=== PATIENT | male | born 1955 | race Caucasian/White ===

== ENCOUNTER 2020-11-14 09:46 | Inpatient (IN) | payer MEDICARE, SELFPAY ==
[2020-11-14] VITALS (10 sets, daily range): BP systolic 135–161; BP diastolic 64–101; PULSE 78–88; RESP 20–24; TEMP 36.2–38.1; O2SAT 90–94; BMI 42.5; BMI 42.9
--- NOTE | 2020-11-14 10:05 | EKG12_ITS ---
Test Reason : GENERAL ILLNESS Blood Pressure : / mmHG Vent. Rate : 078 BPM Atrial Rate : 078 BPM P-R Int : 188 ms QRS Dur : 102 ms QT Int : 396 ms P-R-T Axes : 056 -13 028 degrees QTc Int : 451 ms Normal sinus rhythm Normal ECG Confirmed by JACKY LOPEZ, SHARON ([id number]), assistant editor NICO LIVE ([id number]) on 11/16/2020 11:15:26 AM Referred By: POOJA Confirmed By:SHARON RICO MD
[2020-11-14 10:29] LABS: Absolute Neutrophil Count 2.4 X10^3/uL (2.0-7.7); Basophil# 0.01 X10^3/uL; Basophil% 0.3 % (0-1); Hematocrit 41.8 % (40-54); Hemoglobin 14.5 g/dL (13.0-16.5); Lymphocyte % 22.4 % (19-41); Mean Corp Hgb Conc 34.7 g/dL (32-36); Mean Corpuscular Volume 97.9 fL (80-94); Mean Platelet Vol. 10.8 fl (6.2-12.0); Monocyte# 0.35 X10^3/uL; Monocyte% 9.8 % (0-10); NRBC Flagged by Analyzer 0 % (0-5); Neutrophil % 67.2 % (47-70); Platelet Count 113 K/mm3 (150-450); RBC Distribution Width CV 13.2 % (11.6-14.6); RBC Distribution Width SD 46.8 fl (35.1-43.9); Red Blood Count 4.27 M/mm3 (4.6-6.2); White Blood Count 3.6 K/mm3 (4.4-11.0)
[2020-11-14 10:50] LABS: ALB/GLOB Ratio 0.8 RATIO (0.9-2.4); AST(SGOT) 83 U/L (15-37); Alanine Aminotransfer ALT/SGPT 94 U/L (16-61); Albumin, Serum 3.3 g/dL (3.2-5.0); Alkaline Phosphatase 70 U/L (45-117); Anion Gap 6 (5-15); BUN 13 mg/dL (7-18); BUN/Creat Ratio 11.8 RATIO (10-20); Calcium,Total 8.3 mg/dL (8.5-10.1); Chloride 95 mmol/L (98-107); EST Glomerular Filtration Rate 71 mL/min (>60); Est Glom Filt Rate - Afr Amer 86 mL/min (>60); Estimated Creatinine Clearance 80.01 ml/min; Globulin 3.9 g/dL (2.2-4.2); Glucose 312 mg/dL (74-106); International Normalized Ratio 1.4; Potassium 5.1 mmol/L (3.5-5.1); Protein, Total 7.2 g/dL (6.4-8.2); Prothrombin Time (Protime)PT. 16.5 SECONDS (11.7-14.9); Sodium Level 128 mmol/L (136-145)
[2020-11-14 10:51] LABS: Partial Thromboplast Time 37.8 Seconds (24.1-36.2)
[2020-11-14] MEDS: 0.9% Normal Saline 1,000 ML 1000 ML IV (11:04)
--- NOTE | 2020-11-14 11:05 | RAD_ITS ---
STUDY: X-RAY CHEST REASON FOR EXAM: Male, 65 years old. cough, sob TECHNIQUE: Single AP portable view of the chest. COMPARISON: None. FINDINGS: Cardiomegaly with congestion. Aorta calcified. Extensive multifocal airspace opacities performing at the mid/lower lungs. No pleural effusions. Upper abdomen unremarkable. Osseous structures intact. No pneumothorax. RAD/Chest 1 View (Portable) IMPRESSION: Extensive multifocal airspace opacities (suspected infection) Cardiomegaly with mild congestion Electronically Signed: Naveen Juárez DO at 11:24 EDT Tel , Service support ,
--- NOTE | 2020-11-14 12:02 | ED.DCSUM_ITS ---
- ER Visit Summary Date of Service: 11/14/20 Chief Complaint: Ill History of Present Illness: The patient is a 65 M who is feeling ill for several days. Generalized fatigue, lightheaded, diarrhea, fevers, cough, shortness of breath. History of PE. He is compliant with his Xarelto. Also history of coronary disease, diabetes, hypertension, hyperlipidemia. Former smoker. Physical Examination: 90% on room air. Temp is 100.5. Respiratory rate 20. Otherwise vitals unremarkable. Lungs clear. Heart regular. Abdomen soft. Extremities nontender with no edema. Test Results: Covid positive. Low WBC and platelets 113. Sodium 128, glucose 312, mildly elevated liver enzymes. Troponin normal. Lactate 2.0. Emergency Department Course and Treatment: [] Treatment Plan: IV, Monitor. Sats OK at rest in bed. Labs, CXR, micro consistent with COVID 19. He is high risk and will be admitted for further care. Treated with dexamethasone. Disposition: Admit Impression: Covid 19, hypoxia This note was generated with [employer] dictation software. It may contain incorrect words, spelling, and punctuation that were not noted in review of the chart prior to signing ED Disposition - Plan for ED Patient: Referrals: Anil Barrett NP, [facility] [Primary Care Provider] -
--- NOTE | 2020-11-14 12:19 | NURSING ---
ICU CVID, HYPOXIA KAMALA
[2020-11-14] MEDS: dexAMETHasone 4 MG/ML Vial 6 MG IV (12:42)
--- NOTE | 2020-11-14 13:19 | PCM.HP.STD ---
Problem List (1) COVID-19 Status: Acute (2) Diabetes Status: Chronic Qualifiers: Diabetes mellitus type: type 2 Diabetes mellitus shelter insulin use: unspecified shelter insulin use status (3) HTN (hypertension) Status: Chronic (4) Hyperlipemia Status: Chronic (5) YASMIN (obstructive sleep apnea) Status: Chronic (6) Morbid obesity Status: Chronic (7) CAD (coronary artery disease) Status: Chronic (8) Pulmonary embolism Status: Chronic (9) Thrombocytopenia Status: Acute (10) Leukopenia Status: Acute (11) Transaminitis Status: Acute (12) Hyponatremia Status: Acute History of Present Illness Date of Admission: 11/14/20 Mr. Alcocer is a 65 year old WM with a past medical history of coronary artery disease, HTN, HPL, YASMIN, MO, and DM-2 who presented to emergency department [facility] on 11/14/2020 with a chief complaint of shortness of breath. He reported that he had been feeling ill since last Friday with generalized fatigue, lightheadedness, diarrhea, fevers, cough, and shortness of breath. He has a history of pulmonary embolism for which she is on Xarelto. He takes this medication consistently and does not miss doses. He has not yet been vaccinated for COVID-19. Vital signs in the emergency department show a temperature of 100.5, heart rate of 80, blood pressure 144/64, respiratory rate of 20, and an oxygen saturation of 90% on room air. A COVID-19 rapid antigen test was performed and was positive. His CBC showed leukopenia and thrombocytopenia. His CMP showed mild hyponatremia with a sodium of 128, a glucose of 312, mildly elevated transaminases with an AST of 83 and an ALT of 94. His chest x-ray showed cardiomegaly with mild congestion and extensive multifocal airspace opacities. He was treated with Decadron in the emergency department and he was admitted to the COVID-19 cohort unit for further care. Given his comorbidities he is at and incredibly high risk for decompensation and this was discussed with both he and his .] Past Medical History Past Medical History (Chronic Problems): Chronic Problems Diabetes (Chronic) HTN (hypertension) (Chronic) Hyperlipemia (Chronic) YASMIN (obstructive sleep apnea) (Chronic) Morbid obesity (Chronic) CAD (coronary artery disease) (Chronic) Pulmonary embolism (Chronic) Allergies No Known Allergies Allergy (Verified 11/14/20 09:51) Home Medications: Ambulatory Orders Medication Instructions Recorded Glimepiride [Amaryl] 2 mg PO DAILY 11/14/20 Lisinopril [Zestril] 10 mg PO DAILY 11/14/20 Metoprolol Tartrate [Lopressor 50 mg PO BID 11/14/20 (Beta Edy)] Simvastatin [Zocor] 40 mg PO QHS 11/14/20 Smoking Status: Never smoker Review of Systems Constitutional: Reports: Fever, Malaise, Weakness, Fatigue. Denies: Anorexia, Chills, Night Sweats, Weight Change Eyes: Denies: Blurred vision, Cataracts, Conjunctivae Inflammation, Double vision, Drainage, Eyelid Inflammation, Pain, Redness, Vision Change HEENT: Reports: Head Aches. Denies: Difficulty Hearing, Difficulty Swallowing, Nasal bleeding, Nasal Congestion, Post Nasal Drip, Sinus Congestion, Sinus Drainage, Sore Throat, Visual Changes Cardiovascular: Reports: Light Headedness. Denies: Chest Pain, Claudication, Chest Pressure, Chest Tightness, Edema, Heaviness, Orthopnea, Palpitations, Paroxysmal Noc. Dyspnea, Syncope Respiratory: Reports: Cough, Shortness of Breath, Shortness of breath at rest, Shortness of breath upon exertion. Denies: Hemoptysis, Pleuritic Pain, Sputum production, Wheezing Gastrointestinal: Reports: Diarrhea. Denies: Abdominal Pain, Constipation, Dyspepsia, Hematemesis, Hematochezia, Nausea, Melena, Vomiting Genitourinary: Denies: Dysuria, Frequency, Hematuria, Hesitancy, Incontinence, Nocturia, Retention, Urgency Musculoskeletal: Denies: Back Pain, Joint Pain, Joint stiffness, Joint swelling, Joint Tenderness, Leg Pain, Muscle pain, Neck Pain, Shoulder Pain Skin: Denies: Dryness, Jaundice, Lesions, Pruritis, Rash, Skin Changes, Wounds Neurological: Denies: Balance problems, Blurred vision, Double vision, Change in Speech, Slurred speech, Confusion, Difficulty swallowing, Focal weakness, Headaches, Incoordination, Numbness, Tingling, Tremor, Seizures Psychiatric: Denies: Anxiety, Depression Endocrine: Denies: Change in Body Habitus, Heat/ Cold Intolerance, Polydipsia, Polyuria Hematologic/ Lymphatic: Reports: Hx of blood clot. Denies: Adenopathy, Anemia, Easy Bruising, Easy Bleeding, Petechiae, Purpura VTE Information - Inpt Only VTE Present on Admission: No VTE Mechan Device Prophylaxis: None VTE Pharm Prophylaxis ordered?: Yes - Physical Exam Vitals/I&O's: Vital Signs Temp Pulse Resp BP Pulse Ox 98 F 78 20 H 139/76 H 94 11/14/20 12:20 11/14/20 12:20 11/14/20 12:20 11/14/20 12:20 11/14/20 12:20 Oxygen Delivery Method Room Air Weight: 158.757 kg Body Mass Index (BMI) 42.5 Intake and Output for Last 24 Hours 11/12/20 11/13/20 11/14/20 23:59 23:59 23:59 Intake Total 1000 / 1000 Balance 1000 / 1000 General: Alert, Oriented x3, Cooperative, No apparent distress, Well developed, Well nourished, - - Morbidly obese upper middle-aged white male sitting up in bed, at bedside, nontoxic HEENT: Atraumatic, PERRLA, EOMI, Normocephalic, EAC Clear Oral: Moist Mucosa, No Gingival or Mucosal Lesions/ Ulcerations Neck: Supple, No JVD, Negative Carotid Bruits, Negative Hepatojugular Reflux, No Nodes, No Nuchal Rigidity, Trachea Midline, Thyroid Normal Size and Texture Lungs: Clear to auscultation, No rhonchi, No wheeze, No rales, Diminished - Diffusely Cardiovascular: Regular rate, Regular Rhythm, Normal S1, Normal S2, No murmurs, No rub noted, No Gallop, - - Few ectopic beats Abdomen: Bowel Sounds Present, Soft, Non Tender, Non-Distended, Obese, No hernias noted Extremities: No clubbing, No cyanosis, Capillary Refill Less than 3 Seconds, Edema - Trace bilateral lower extremity edema, Peripheral Pulses Normal Skin: No rashes, No breakdown Musculoskeletal: No Tenderness to Palpation of Joints or Extremities, No Muscle Wasting, Arthritic Changes Lymphatic: No Cervical, Supraclavicular, or Inguinal Adenopathy Neurological: Cranial nerves II-XII grossly intact, Neuro grossly intact, Muscle tone normal, Coordination normal Psych/Mental Status: Normal Affect, Appropriate, - - Patient frustrated Microbiology Past 72 Hours 11/14/20 10:20 Nasal Secretion SARS-CoV-2 Antigen (Rapid) - Final SARS-CoV-2 (COVID 19) Laboratory Results 11/14/20 10:15: WBC 3.6 L, RBC 4.27 L, Hgb 14.5, Hct 41.8, MCV 97.9 H, MCH 34.0 H, MCHC 34.7, RDW Std Deviation 46.8 H, RDW Coeff of [place] 13.2, Plt Count 113 L, MPV 10.8, Immature Gran % (Auto) 0.300, Neut % (Auto) 67.2, Lymph % (Auto) 22.4, [place] % (Auto) 9.8, Eos % (Auto) 0.0, Baso % (Auto) 0.3, Absolute Neuts (auto) 2.4, Absolute Lymphs (auto) 0.80 L, Nucleated RBC % 0 11/14/20 10:15: PT 16.5 H, INR 1.4, APTT 37.8 H 11/14/20 10:15: Sodium 128 L, Potassium 5.1, Chloride 95 L, Carbon Dioxide 27.0, Anion Gap 6, BUN 13, Creatinine 1.10, Estim Creat Clear Calc 80.01, Est GFR (MDRD) Af Amer 86, Est GFR (MDRD) Non-Af 71, BUN/Creatinine Ratio 11.8, Glucose 312 H, Calcium 8.3 L, Total Bilirubin 0.80, AST 83 H, ALT 94 H, Alkaline Phosphatase 70, Troponin I 0.017, Total Protein 7.2, Albumin 3.3, Globulin 3.9, Albumin/Globulin Ratio 0.8 L 11/14/20 10:15: Lactic Acid 2.0 Assessment/Plan All Active Problems COVID-19 (Acute) Thrombocytopenia (Acute) Leukopenia (Acute) Transaminitis (Acute) Hyponatremia (Acute) COVID-19 pneumonia -Pt CXR with patchy B infiltrates -O2 sat in ED 89-92% on RA -Supplemental oxygen as needed -Given relative hypoxia--> start remdesivir Day 1 -Decadron 6 mg daily--> day 110 -Obtain daily labs associated with remdesivir dosing -Cycle troponin -No need for D-dimer as patient is already fully anticoagulated -BiPAP at at bedtime -Patient is extremely high risk for decompensation and this was discussed with both he and his in the emergency department -Pulmonary consult given risk Transaminitis -Most likely related to Covid -Continue to monitor Leukopenia/thrombocytopenia -Most likely related to Covid -Continue to monitor Hyponatremia -Likely related to Covid -Continue to monitor DM-2 -Patient is on Trulicity, Metformin, and glimepiride at home -Hold all home medications at this time -Start Lantus 20 units at at bedtime and 5 units of log with meals -AC at bedtime sliding scale -BGT AC at bedtime -Suspect he will have elevated blood sugars on the Decadron and will likely need titrating of insulin Hypertension -Continue metoprolol -Continue lisinopril -Monitor renal function closely with lisinopril Hyperlipidemia -Continue statin History of coronary disease -Start aspirin 81 mg nightly YASMIN -BiPAP at at bedtime History of pulmonary embolism -Continue Xarelto 20 mg daily Morbid obesity -BMI 42.6 -Complicates overall treatment, outcomes and prognosis DVT/GI prophylaxis -Continue NOAC -Protonix 40 mg daily CODE STATUS -Per discussion with patient with his present in the emergency department patient does not want to be resuscitated but would want short-term intubation -DNR CCA okay for short-term intubation order placed Inpatient E&M: [id number] Init Hosp L3
--- NOTE | 2020-11-14 13:20 | NURSING ---
ICU 6
[2020-11-14 14:24] LABS: Reflex Lactate? Y
[2020-11-14] MEDS: 0.9% Saline Lock 10 ML Syringe IV ×2 (15:18→17:25)
[2020-11-14 15:31] LABS: Lactic Acid 1.5 mmol/L (0.4-1.9)
[2020-11-14 15:40] LABS: Bacteria 0 SEEN /hpf (None Seen); Mucous, Urine 0 SEEN /hpf (<or=2+); Red Blood Cells-Urine 0 SEEN /hpf (0-5)
[2020-11-14 15:47] LABS: Color, Urine Yellow (Yellow); Glucose, Dipstick 250 mg/dl (Normal); Ketone-Dipstick 5 mg/dl (Negative); Leukocyte Esterase-Dipstick Negative /ul (Negative); Nitrite-Dipstick Negative (Negative); Occult Blood-Urine Negative /ul (Negative); Protein-Dipstick 30 mg/dl (Negative); Specific Gravity, Urine 1.015 (1.002-1.030); Urine Bilirubin Dipstick Negative (Negative); Urine Clarity Clear (Clear); Urine Urobilinogen Normal (Normal)
[2020-11-14 15:54] LABS: Squamous Epithelial Cells - UA 0-5 SEEN /hpf (0-5)
[2020-11-14 15:55] LABS: White Blood Cells 0-5 SEEN /hpf (0-5)
[2020-11-14] MEDS: Insulin Lispro 100 UNIT/ML INSULN.PEN SC ×3 (17:11→21:02)
[2020-11-14] MEDS: Rivaroxaban 20 MG Tablet PO (17:12)
[2020-11-14 17:20] LABS: Bedside Glucose 374 mg/dL (70-110)
[2020-11-14] MEDS: Lactated Ringers 1,000 ML 75 ML IV (17:24)
[2020-11-14] MEDS: Metoprolol Tartrate 50 MG Tablet PO (21:01)
[2020-11-14 21:31] LABS: Bedside Glucose 376 mg/dL (70-110)
--- NOTE | 2020-11-14 23:47 | CPS ---
Pt could not tolerate mask and will wear 2L O2. Pt will have spouse deliver home PAP unit.
[2020-11-15] VITALS (26 sets, daily range): BP systolic 113–151; BP diastolic 64–95; PULSE 65–91; RESP 12–35; TEMP 36.2–37; O2SAT 89–95
[2020-11-15 04:42] LABS: Absolute Lymphocyte Count 0.98 X10^3/uL (0.83-4.51); Absolute Neutrophil Count 2.5 X10^3/uL (2.0-7.7); Basophil# 0.01 X10^3/uL; Basophil% 0.3 % (0-1); Hematocrit 40.5 % (40-54); Hemoglobin 13.9 g/dL (13.0-16.5); Lymphocyte # 0.98 X10^3/ul (4.0); Lymphocyte % 25.2 % (19-41); Mean Corp Hgb Conc 34.3 g/dL (32-36); Mean Corpuscular Hgb 33.7 pg (27.0-32.0); Mean Corpuscular Volume 98.3 fL (80-94); Mean Platelet Vol. 10.3 fl (6.2-12.0); Monocyte# 0.39 X10^3/uL; NRBC Flagged by Analyzer 0 % (0-5); Neutrophil # 2.49 X10^3/uL (2.7-7.7); Platelet Count 116 K/mm3 (150-450); RBC Distribution Width CV 13.2 % (11.6-14.6); RBC Distribution Width SD 47.6 fl (35.1-43.9); Red Blood Count 4.12 M/mm3 (4.6-6.2); White Blood Count 3.9 K/mm3 (4.4-11.0)
[2020-11-15 04:58] LABS: ALB/GLOB Ratio 0.7 RATIO (0.9-2.4); AST(SGOT) 53 U/L (15-37); Alanine Aminotransfer ALT/SGPT 75 U/L (16-61); Albumin, Serum 2.9 g/dL (3.2-5.0); Alkaline Phosphatase 63 U/L (45-117); Anion Gap 4 (5-15); BUN 17 mg/dL (7-18); Chloride 100 mmol/L (98-107); EST Glomerular Filtration Rate 79 mL/min (>60); Est Glom Filt Rate - Afr Amer 96 mL/min (>60); Estimated Creatinine Clearance 88.01 ml/min; Globulin 3.9 g/dL (2.2-4.2); Glucose 307 mg/dL (74-106); Phosphorus 3.3 mg/dL (2.5-4.9); Potassium 4.8 mmol/L (3.5-5.1); Protein, Total 6.8 g/dL (6.4-8.2); Sodium Level 131 mmol/L (136-145)
[2020-11-15] MEDS: Lactated Ringers 1,000 ML 75 ML IV ×2 (05:40→18:09)
[2020-11-15 07:41] LABS: Bedside Glucose 283 mg/dL (70-110)
[2020-11-15] MEDS: dexAMETHasone 4 MG Tablet 6 MG PO (07:48)
[2020-11-15] MEDS: Metoprolol Tartrate 50 MG Tablet PO ×2 (07:50→22:38)
[2020-11-15] MEDS: Aspirin 81 MG TAB.CHEW PO (07:50)
[2020-11-15] MEDS: Pantoprazole Sodium 40 MG Tablet PO (07:51)
[2020-11-15] MEDS: Lisinopril 10 MG Tablet PO (07:51)
[2020-11-15] MEDS: Insulin Lispro 100 UNIT/ML INSULN.PEN SC ×5 (07:52→22:36)
--- NOTE | 2020-11-15 08:50 | CON.PCM_ITS ---
Problem List (1) COVID-19 Status: Acute (2) Diabetes Status: Chronic Qualifiers: Diabetes mellitus type: type 2 Diabetes mellitus long-term insulin use: without long-term use Diabetes mellitus complication status: with circulatory complication Diabetes mellitus complication detail: with other circulatory complications Qualified Code(s): E11.59 - Type 2 diabetes mellitus with other circulatory complications (3) HTN (hypertension) Status: Chronic Qualifiers: Hypertension type: essential hypertension Qualified Code(s): I10 - Essential (primary) hypertension (4) Hyperlipemia Status: Chronic Qualifiers: Hyperlipidemia type: mixed hyperlipidemia Qualified Code(s): E78.2 - Mixed hyperlipidemia (5) YASMIN (obstructive sleep apnea) Status: Chronic (6) Morbid obesity Status: Chronic (7) CAD (coronary artery disease) Status: Chronic Qualifiers: Coronary Disease-Associated Artery/Lesion type: [place] artery [place] vs. transplanted heart: [place] heart Associated angina: without angina Qualified Code(s): I25.10 - Atherosclerotic heart disease of [place] coronary artery without angina pectoris Reason for Consult Date of Consultation: 11/15/20 Reason for Consultation: COVID-19 History of Present Illness: The patient is a 65 year old M, with past medical history listed below, who presented to [facility] on 11/14/2020 secondary to approximately 7-day history of progressive illness. Patient states he started off with generalized fatigue and a cough. Patient progressed to shortness of breath and had some diarrhea approximately 4 days ago. Patient does have a history of pulmonary embolism and has been compliant with his Xarelto therapy, but felt that things were continuing to progress, so came to the ER for evaluation. In the ER, patient was noted to be 90% on room air and febrile at 100.5 ?F. Physical exam was relatively unremarkable. Patient did have hyperglycemia at 312, lactate of 2, lymphopenia and tested positive for COVID-19. Given patient's body habitus and comorbidities, patient was admitted to the cohort unit for further evaluation. Since being in the cohort unit, patient has been placed on supplemental oxygen. Patient reportedly did not tolerate the full facemask provided on the BiPAP last evening. Patient stated he felt relatively unchanged this morning. After my evaluation, patient started to require more supplemental oxygen without additional symptoms. Patient does report a [id number] smoking history, but is never been evaluated for COPD or asthma. Patient does not use any inhalers at baseline. Patient has not required supplemental oxygen at baseline outside of his previous cardiac events. Patient is unclear on how he contracted COVID-19. Patient does report recent diarrhea, but feels that he has been able to stay hydrated. Patient has not reported any chest pain or syncopal episodes. Patient reportedly is compliant with his YASIMN therapy at baseline. Patient has not reported any bleeding complications given his anticoagulation such as melena, hematochezia or hemoptysis. Review of systems otherwise negative from a constitutional, HEENT, respiratory, cardiovascular, GI, genitourinary, musculoskeletal, skin, neurologic, psychia tric and hematologic system unless stated above. Past Medical History Past Medical History (Chronic Problems): Chronic Problems Diabetes (Chronic) HTN (hypertension) (Chronic) Hyperlipemia (Chronic) YASMIN (obstructive sleep apnea) (Chronic) Morbid obesity (Chronic) CAD (coronary artery disease) (Chronic) Pulmonary embolism (Chronic) Allergies No Known Allergies Allergy (Verified 11/14/20 09:51) Home Medications: Ambulatory Orders Medication Instructions Recorded Dulaglutide [Trulicity] 0.5 ml SQ QWEEK 11/14/20 Glimepiride [Amaryl] 2 mg PO DAILY 11/14/20 Lisinopril [Zestril] 10 mg PO DAILY 11/14/20 Metformin HCl [Metformin HCl ER] 750 mg PO BID 11/14/20 Metoprolol Tartrate [Lopressor 50 mg PO BID 11/14/20 (Beta Edy)] Simvastatin [Zocor] 40 mg PO QHS 11/14/20 Xarelto 20 mg PO DAILY 11/15/20 Smoking Status: Former smoker Review of Systems Comment: See HPI Patient Problems: Active and Suspected Problems COVID-19 (Acute) Thrombocytopenia (Acute) Leukopenia (Acute) Transaminitis (Acute) Hyponatremia (Acute) Objective: Chest x-ray showing bilateral infiltrates, right greater than left with mild cardiomegaly. Patient does not have an echocardiogram, sleep study or pulmonary function test available for review. - Physical Exam Vitals/I&O's: Vital Signs Temp Pulse Resp BP Pulse Ox 36.8 C 89 18 144/95 H 93 11/15/20 07:37 11/15/20 07:50 11/15/20 07:37 11/15/20 07:37 11/15/20 07:37 Oxygen Flow Rate (L/min) 15 Oxygen Delivery Method Nasal Cannula Weight: 158.8 kg Body Mass Index (BMI) 42.9 Intake and Output for Last 24 Hours 11/13/20 11/14/20 11/15/20 23:59 23:59 23:59 Intake Total 1250 / 1250 920 / 920 Output Total 1800 / 1800 800 / 800 Balance -550 / -550 120 / 120 General: Alert, Oriented x3, Cooperative, No apparent distress, - - Morbidly obese. No conversational dyspnea. Slightly abrupt with answers, but does not appear to be confused HEENT: Atraumatic, PERRLA, EOMI, Normocephalic, - - No scleral icterus or injection noted Oral: Moist Mucosa, No Gingival or Mucosal Lesions/ Ulcerations, - - Crowded posterior pharynx Neck: Supple, No JVD, No Nodes, Trachea Midline Lungs: No rhonchi, No rales, Diminished, Wheezes Cardiovascular: Regular rate, Regular Rhythm, Normal S1, Normal S2, No murmurs, No rub noted, No Gallop Abdomen: Bowel Sounds Present, Soft, Non Tender, Non-Distended, Obese Extremities: No cyanosis, Edema - 1+ lower extremity Skin: No rashes, No breakdown Musculoskeletal: No Tenderness to Palpation of Joints or Extremities Lymphatic: No Cervical, Supraclavicular, or Inguinal Adenopathy Neurological: Cranial nerves II-XII grossly intact, Neuro grossly intact, Motor Exam 5/5 strength throughout Psych/Mental Status: Alert and oriented to time, place, person, mood and affect Microbiology Past 72 Hours 11/14/20 10:20 Nasal Secretion SARS-CoV-2 Antigen (Rapid) - Final SARS-CoV-2 (COVID 19) Laboratory Results 11/14/20 10:15: WBC 3.6 L, RBC 4.27 L, Hgb 14.5, Hct 41.8, MCV 97.9 H, MCH 34.0 H, MCHC 34.7, RDW Std Deviation 46.8 H, RDW Coeff of [place] 13.2, Plt Count 113 L, MPV 10.8, Immature Gran % (Auto) 0.300, Neut % (Auto) 67.2, Lymph % (Auto) 22.4, [place] % (Auto) 9.8, Eos % (Auto) 0.0, Baso % (Auto) 0.3, Absolute Neuts (auto) 2.4, Absolute Lymphs (auto) 0.80 L, Nucleated RBC % 0 11/14/20 10:15: PT 16.5 H, INR 1.4, APTT 37.8 H 11/14/20 10:15: Sodium 128 L, Potassium 5.1, Chloride 95 L, Carbon Dioxide 27.0, Anion Gap 6, BUN 13, Creatinine 1.10, Estim Creat Clear Calc 80.01, Est GFR (MDRD) Af Amer 86, Est GFR (MDRD) Non-Af 71, BUN/Creatinine Ratio 11.8, Glucose 312 H, Calcium 8.3 L, Total Bilirubin 0.80, AST 83 H, ALT 94 H, Alkaline Phosphatase 70, Troponin I 0.017, Total Protein 7.2, Albumin 3.3, Globulin 3.9, Albumin/Globulin Ratio 0.8 L 11/14/20 10:15: Lactic Acid 2.0 11/14/20 14:45: Lactic Acid 1.5 11/14/20 14:45: Troponin I 0.024 11/14/20 15:30: Urine Color Yellow, Urine Clarity Clear, Urine pH 6.0, Ur Specific [place] 1.015, Urine Protein 30 H, Urine Glucose (UA) 250 H, Urine Ketones 5 H, Urine Occult Blood Negative, Urine Nitrite Negative, Urine Bilirubin Negative, Urine Urobilinogen Normal, Ur Leukocyte Esterase Negative, Urine RBC 0 SEEN, Urine WBC 0-5 SEEN, Ur Squamous Epith Cells 0-5 SEEN, Urine Bacteria 0 SEEN, Urine Mucus 0 SEEN 11/14/20 17:09: POC Glucose 374 H 11/14/20 18:00: Troponin I 0.024 11/14/20 20:57: POC Glucose 376 H 11/15/20 04:35: WBC 3.9 L, RBC 4.12 L, Hgb 13.9, Hct 40.5, MCV 98.3 H, MCH 33.7 H, MCHC 34.3, RDW Std Deviation 47.6 H, RDW Coeff of [place] 13.2, Plt Count 116 L, MPV 10.3, Immature Gran % (Auto) 0.500, Neut % (Auto) 64.0, Lymph % (Auto) 25.2, [place] % (Auto) 10.0, Eos % (Auto) 0.0, Baso % (Auto) 0.3, Absolute Neuts (auto) 2.5, Absolute Lymphs (auto) 0.98, Nucleated RBC % 0 11/15/20 04:35: Sodium 131 L, Potassium 4.8, Chloride 100, Carbon Dioxide 27.0, Anion Gap 4 L, BUN 17, Creatinine 1.00, Estim Creat Clear Calc 88.01, Est GFR (MDRD) Af Amer 96, Est GFR (MDRD) Non-Af 79, BUN/Creatinine Ratio 17.0, Glucose 307 H, Calcium 8.0 L, Phosphorus 3.3, Magnesium 2.0, Total Bilirubin 0.70, AST 53 H, ALT 75 H, Alkaline Phosphatase 63, Total Protein 6.8, Albumin 2.9 L, Globulin 3.9, Albumin/Globulin Ratio 0.7 L 11/15/20 07:35: POC Glucose 283 H Current Medications Acetaminophen (Acetaminophen 325 Mg Tablet) 650 mg PO Q6H PRN PRN PRN Reason: Pain Score 1-10/Temp > 100.7 F Al Hydroxide/Mg Hydroxide (Mag Hydrox/Al Hydrox/Simeth 30 Ml Udc) 30 ml PO Q6H PRN PRN PRN Reason: Gastric Burning Aspirin (Aspirin 81 Mg Tab.Chew) 81 mg PO DAILY@0800 [facility] Last Admin: 11/15/20 07:50 Dose: 81 mg Documented by: Atorvastatin Calcium (Atorvastatin Calcium 20 Mg Tablet) 20 mg PO 1700 [facility] Dexamethasone (Dexamethasone 4 Mg Tablet) 6 mg PO DAILY [facility] Last Admin: 11/15/20 07:48 Dose: 6 mg Documented by: Dextrose (Dextrose 50%-Water 25 Gm/50 Ml Disp.Syrin) 0 gm IV X1 PRN; Protocol PRN Reason: Hypoglycemia Glucagon (Glucagon 1 Mg/Ml Syringe) 1 mg IM .X1 PRN PRN Reason: Hypoglycemia Guaifenesin (Guaifenesin 10 Ml Udc (200mg/10ml)) 10 ml PO Q4H PRN PRN PRN Reason: COUGH Hydralazine HCl (Hydralazine 20 Mg/Ml Vial) 10 mg IV Q6H PRN PRN PRN Reason: SBP>160 Lactated Ringer's () 1,000 mls @ 75 mls/hr IV .[id number] [facility] Last Admin: 11/15/20 05:40 Dose: 75 mls/hr Documented by: Remdesivir 100 mg/ Sodium (Chloride) 250 mls @ 125 mls/hr IV DAILY [facility]; Protocol Stop: 11/18/20 11:59 Insulin Glargine (Insulin Glargine 100 Units/Ml Pen) 40 units SC QHS BARBI Insulin Human Lispro (Insulin Lispro 100 Unit/Ml Insuln.Pen) 0 unit SC ACHS [facility]; Protocol Last Admin: 11/15/20 07:52 Dose: 4 u Documented by: Insulin Human Lispro (Insulin Lispro 100 Unit/Ml Insuln.Pen) 10 unit SC TIDAC [facility] Lisinopril (Lisinopril 10 Mg Tablet) 10 mg PO DAILY [facility] Last Admin: 11/15/20 07:51 Dose: 10 mg Documented by: Melatonin (Melatonin 3 Mg Tablet) 3 mg PO QHS PRN PRN PRN Reason: INSOMNIA Metoprolol Tartrate (Metoprolol Tartrate 50 Mg Tablet) 50 mg PO BID [facility] Last Admin: 11/15/20 07:50 Dose: 50 mg Documented by: Ondansetron HCl (Ondansetron 4 Mg/2 Ml Vial) 4 mg IV Q8H PRN PRN PRN Reason: NAUSEA/VOMITING Pantoprazole Sodium (Pantoprazole Sodium 40 Mg Tablet) 40 mg PO DAILY [facility] Last Admin: 11/15/20 07:51 Dose: 40 mg Documented by: Rivaroxaban (Rivaroxaban 20 Mg Tablet) 20 mg PO DAILY@1700 [facility] Last Admin: 11/14/20 17:12 Dose: 20 mg Documented by: Senna/Docusate Sodium (Senna/Docusate Sodium 1 Tablet) 2 tablet PO BID PRN PRN PRN Reason: Constipation Sodium Chloride (0.9% Saline Lock 10 Ml Syringe) 10 - 40 ml IV UD PRN PRN Reason: SALINE FLUSH Last Admin: 11/14/20 17:25 Dose: 10 ml Documented by: Clinical Impression(s) from Imaging Studies Chest X-Ray 11/14/20 11:05 IMPRESSION: Extensive multifocal airspace opacities (suspected infection) Cardiomegaly with mild congestion Electronically Signed: Naveen Juárez DO at 11:24 EDT Tel , Service support , Assessment/Plan All Active Problems COVID-19 (Acute) Thrombocytopenia (Acute) Leukopenia (Acute) Transaminitis (Acute) Hyponatremia (Acute) RECOMMENDATIONS: 1. Agree with Decadron and remdesivir 2. Wean oxygen as tolerated 3. Reinitiate baseline YASMIN therapy 4. Aggressive control of blood sugars 5. Initiate DuoNebs 6. Continue baseline Xarelto therapy IMPRESSIONS: 1. Acute hypoxic respiratory failure secondary to COVID-19 pneumonia Patient high risk for progression of disease. Patient does have a history of PE in the past, but is on full dose anticoagulation. This can be continued from my standpoint for clot prophylaxis. Patient has appropriately been initiated on Decadron and remdesivir. We will add empiric mucolytic and bronchodilators for a possibility of COPD given extended smoking history. Stressed to the patient the importance of using BiPAP with sleep to avoid complications. Cannot exclude the need for Airvo versus BiPAP with possible intubation. Patient 7 days in with oxygen requirements, so do anticipate worsening in overall condition before improvement. 2. Leukopenia/thrombocytopenia Clinical suspicion this is secondary to COVID-19. No bleeding complications have been reported. Okay to continue with Xarelto therapy from my perspective. 3. Diabetes mellitus without insulin requirements She does not require insulin at baseline, but given Decadron therapy, highly suspicious that supplemental insulin will be required. Agree with initiation of Lantus and meal insulin. 4. Morbid obesity/YASMIN/hypertension/hyperlipidemia Complicates care, management, recovery and prognosis. Did offer to use patient's home machine for comfort to allow for compliance with YASMIN therapy. Inpatient E&M: [id number] In Hosp L3
[2020-11-15] MEDS: guaiFENesin 1,200 MG Tablet 1200 MG PO ×2 (10:57→22:38)
[2020-11-15] MEDS: Insulin Lispro 100 UNIT/ML INSULN.PEN 10 UNIT SC ×2 (12:06→17:29)
[2020-11-15 12:31] LABS: Bedside Glucose 313 mg/dL (70-110)
--- NOTE | 2020-11-15 13:15 | CASEMGMT ---
RN ANDREW called patient in room for initial transition planning/care coordination assessment. RN ANDREW introduced self and role at [facility]. Patient lying in bed, alert and oriented. Patient willing to participate in assessment and is able to answer all questions appropriately. Care providers, pharmacy, and demographics verified. Patient wishes to discharge home, denies need for home health at this time. Patient states he has no further needs or concerns at this time. CM to follow for discharge planning needs that may arise. PCP: Arnold Specialists: [facility] [employer] [facility] Pharmacy: [facility] Insurance: [employer] [facility] Prescription Benefit: yes Living Will/HPOA: none LNOK: Living Arrangements: Patient lives with in single story home with 2 steps to enter the home. Patient states he is independent at home. Patient states was tested and is positive for Covid and is isolating at home. Patient states that they have someone that could deliver groceries and supplies. Transportation: self/ DME/HHC: Patient states he has cpap at home, denies further DME. No previous HHC. Will monitor for need for home oxygen at discharge. Disposition Plan: Patient to discharge home with family support and follow-up plan in place. Milena YAÑEZ, RN, CM
[2020-11-15] MEDS: Ipratropium/Albuterol Sulfate 3 ML AMPUL.NEB INHALATION ×2 (13:44→19:07)
--- NOTE | 2020-11-15 15:05 | PCM.PN.HOSP ---
Patient Problems: Active and Suspected Problems COVID-19 (Acute) Thrombocytopenia (Acute) Leukopenia (Acute) Transaminitis (Acute) Hyponatremia (Acute) Subjective: She notes he is feeling worse today. He has had increased shortness of breath since admission and is now requiring 15 L nasal cannula of high flow. Appears frustrated and is aware that this is going to be a slow process. Vitals/I&O's: Vital Signs Temp Pulse Resp BP Pulse Ox 97.2 F L 86 28 H 145/75 H 90 11/15/20 14:00 11/15/20 14:00 11/15/20 14:00 11/15/20 14:00 11/15/20 14:00 Oxygen Flow Rate (L/min) 12 Oxygen Delivery Method Nasal Cannula Weight: 158.8 kg Body Mass Index (BMI) 42.9 Intake and Output for Last 24 Hours 11/13/20 11/14/20 11/15/20 23:59 23:59 23:59 Intake Total 1250 / 1250 2047.5 / 2047.5 Output Total 1800 / 1800 800 / 800 Balance -550 / -550 1247.5 / 1247.5 General: Alert, Oriented x3, Cooperative, No apparent distress, Well developed, Well nourished, - - Morbidly obese upper middle-aged male sitting up in chair, appears comfortable and in no acute distress, nontoxic HEENT: Atraumatic, PERRLA, EOMI, Normocephalic, EAC Clear Oral: Moist Mucosa, No Gingival or Mucosal Lesions/ Ulcerations Neck: Supple, Trachea Midline Lungs: No rhonchi, No wheeze, No rales, Diminished Cardiovascular: Regular rate, Regular Rhythm, Normal S1, Normal S2, No murmurs, No Ectopic Activity, No rub noted, No Gallop Abdomen: Bowel Sounds Present, Soft, Non Tender, Non-Distended, Obese Extremities: No clubbing, No cyanosis, No edema, Capillary Refill Less than 3 Seconds, Peripheral Pulses Normal Skin: No rashes Neurological: Cranial nerves II-XII grossly intact, Neuro grossly intact Psych/Mental Status: Appropriate, Flat Affect, - - Depressed mood Microbiology Past 72 Hours 11/14/20 10:20 Nasal Secretion SARS-CoV-2 Antigen (Rapid) - Final SARS-CoV-2 (COVID 19) Laboratory Results 11/14/20 14:45: Lactic Acid 1.5 11/14/20 14:45: Troponin I 0.024 11/14/20 15:30: Urine Color Yellow, Urine Clarity Clear, Urine pH 6.0, Ur Specific [place] 1.015, Urine Protein 30 H, Urine Glucose (UA) 250 H, Urine Ketones 5 H, Urine Occult Blood Negative, Urine Nitrite Negative, Urine Bilirubin Negative, Urine Urobilinogen Normal, Ur Leukocyte Esterase Negative, Urine RBC 0 SEEN, Urine WBC 0-5 SEEN, Ur Squamous Epith Cells 0-5 SEEN, Urine Bacteria 0 SEEN, Urine Mucus 0 SEEN 11/14/20 17:09: POC Glucose 374 H 11/14/20 18:00: Troponin I 0.024 11/14/20 20:57: POC Glucose 376 H 11/15/20 04:35: WBC 3.9 L, RBC 4.12 L, Hgb 13.9, Hct 40.5, MCV 98.3 H, MCH 33.7 H, MCHC 34.3, RDW Std Deviation 47.6 H, RDW Coeff of [place] 13.2, Plt Count 116 L, MPV 10.3, Immature Gran % (Auto) 0.500, Neut % (Auto) 64.0, Lymph % (Auto) 25.2, [place] % (Auto) 10.0, Eos % (Auto) 0.0, Baso % (Auto) 0.3, Absolute Neuts (auto) 2.5, Absolute Lymphs (auto) 0.98, Nucleated RBC % 0 11/15/20 04:35: Sodium 131 L, Potassium 4.8, Chloride 100, Carbon Dioxide 27.0, Anion Gap 4 L, BUN 17, Creatinine 1.00, Estim Creat Clear Calc 88.01, Est GFR (MDRD) Af Amer 96, Est GFR (MDRD) Non-Af 79, BUN/Creatinine Ratio 17.0, Glucose 307 H, Calcium 8.0 L, Phosphorus 3.3, Magnesium 2.0, Total Bilirubin 0.70, AST 53 H, ALT 75 H, Alkaline Phosphatase 63, Total Protein 6.8, Albumin 2.9 L, Globulin 3.9, Albumin/Globulin Ratio 0.7 L 11/15/20 07:35: POC Glucose 283 H 11/15/20 12:04: POC Glucose 313 H Current Medications Acetaminophen (Acetaminophen 325 Mg Tablet) 650 mg PO Q6H PRN PRN PRN Reason: Pain Score 1-10/Temp > 100.7 F Al Hydroxide/Mg Hydroxide (Mag Hydrox/Al Hydrox/Simeth 30 Ml Udc) 30 ml PO Q6H PRN PRN PRN Reason: Gastric Burning Albuterol/Ipratropium (Ipratropium/Albuterol Sulfate 3 Ml Ampul.Neb) 3 ml INHALATION Q6HWA.RT [facility] Last Admin: 11/15/20 13:44 Dose: 3 ml Documented by: Aspirin (Aspirin 81 Mg Tab.Chew) 81 mg PO DAILY@0800 [facility] Last Admin: 11/15/20 07:50 Dose: 81 mg Documented by: Atorvastatin Calcium (Atorvastatin Calcium 20 Mg Tablet) 20 mg PO 1700 [facility] Dexamethasone (Dexamethasone 4 Mg Tablet) 6 mg PO DAILY [facility] Last Admin: 11/15/20 07:48 Dose: 6 mg Documented by: Dextrose (Dextrose 50%-Water 25 Gm/50 Ml Disp.Syrin) 0 gm IV X1 PRN; Protocol PRN Reason: Hypoglycemia Glucagon (Glucagon 1 Mg/Ml Syringe) 1 mg IM .X1 PRN PRN Reason: Hypoglycemia Guaifenesin (Guaifenesin 1,200 Mg Tablet) 1,200 mg PO BID [facility] Last Admin: 11/15/20 10:57 Dose: 1,200 mg Documented by: Hydralazine HCl (Hydralazine 20 Mg/Ml Vial) 10 mg IV Q6H PRN PRN PRN Reason: SBP>160 Lactated Ringer's () 1,000 mls @ 75 mls/hr IV .[id number] [facility] Last Infusion: 11/15/20 13:07 Dose: 75 mls/hr Documented by: Remdesivir 100 mg/ Sodium (Chloride) 250 mls @ 125 mls/hr IV DAILY [facility]; Protocol Stop: 11/18/20 11:59 Last Infusion: 11/15/20 13:08 Dose: Infused Documented by: Insulin Glargine (Insulin Glargine 100 Units/Ml Pen) 40 units SC QHS BARBI Insulin Human Lispro (Insulin Lispro 100 Unit/Ml Insuln.Pen) 0 unit SC ACHS [facility]; Protocol Last Admin: 11/15/20 12:07 Dose: 5 u Documented by: Insulin Human Lispro (Insulin Lispro 100 Unit/Ml Insuln.Pen) 10 unit SC TIDAC [facility] Last Admin: 11/15/20 12:06 Dose: 10 u Documented by: Lisinopril (Lisinopril 10 Mg Tablet) 10 mg PO DAILY [facility] Last Admin: 11/15/20 07:51 Dose: 10 mg Documented by: Melatonin (Melatonin 3 Mg Tablet) 3 mg PO QHS PRN PRN PRN Reason: INSOMNIA Metoprolol Tartrate (Metoprolol Tartrate 50 Mg Tablet) 50 mg PO BID [facility] Last Admin: 11/15/20 07:50 Dose: 50 mg Documented by: Ondansetron HCl (Ondansetron 4 Mg/2 Ml Vial) 4 mg IV Q8H PRN PRN PRN Reason: NAUSEA/VOMITING Pantoprazole Sodium (Pantoprazole Sodium 40 Mg Tablet) 40 mg PO DAILY [facility] Last Admin: 11/15/20 07:51 Dose: 40 mg Documented by: Rivaroxaban (Rivaroxaban 20 Mg Tablet) 20 mg PO DAILY@1700 [facility] Last Admin: 11/14/20 17:12 Dose: 20 mg Documented by: Senna/Docusate Sodium (Senna/Docusate Sodium 1 Tablet) 2 tablet PO BID PRN PRN PRN Reason: Constipation Sodium Chloride (0.9% Saline Lock 10 Ml Syringe) 10 - 40 ml IV UD PRN PRN Reason: SALINE FLUSH Last Admin: 11/14/20 17:25 Dose: 10 ml Documented by: STROKE Vital Signs/Narrative: Vital Signs Temp Pulse Resp BP Pulse Ox 11/15/20 14:00 97.2 F L 86 28 H 145/75 H 90 11/15/20 13:48 95 11/15/20 13:47 82 30 H 11/15/20 13:00 97.6 F L 77 34 H 135/69 H 93 11/15/20 12:09 94 11/15/20 12:00 98.6 F 78 26 H 128/86 H 94 Medical Necessity - Tobacco Use Smoking Status: Former smoker Assessment/Plan All Active Problems COVID-19 (Acute) Thrombocytopenia (Acute) Leukopenia (Acute) Transaminitis (Acute) Hyponatremia (Acute) Acute hypoxic respiratory failure secondary to COVID-19 pneumonia -Pt CXR with patchy B infiltrates -Patient is decompensated and is now requiring 15 L nasal cannula with an SPO2 of 94% -Wean as able -Given relative hypoxia--> start remdesivir Day 2 -Decadron 6 mg daily--> day 09/13 -Blood cultures are pending but doubt bacterial infection at this time -Continue BiPAP at at bedtime -Patient is extremely high risk for decompensation and this was discussed with both he and his in the emergency department -Pulmonary following Transaminitis -Most likely related to Covid -Improved in last 24 hours -Continue to monitor Leukopenia/thrombocytopenia -Most likely related to Covid -Slight uptrend -Continue to monitor Hyponatremia -Likely related to Covid -Remains stable at 131 -Continue to monitor DM-2 -Patient is on Trulicity, Metformin, and glimepiride at home -Hold all home medications at this time -Blood sugars remain markedly elevated -Increase Lantus 40 units at at bedtime and 10 units of log with meals -Goal blood sugars are 1 40-1 80 -AC at bedtime sliding scale -BGT AC at bedtime Hypertension -Continue metoprolol -Continue lisinopril -Monitor renal function closely with lisinopril Hyperlipidemia -Continue statin History of coronary disease -Continue aspirin 81 mg nightly YASMIN -BiPAP at at bedtime History of pulmonary embolism -Continue Xarelto 20 mg daily Morbid obesity -BMI 42.6 -Complicates overall treatment, outcomes and prognosis History of tobacco abuse -Quit approximately 20 years ago -Suspect possible baseline COPD and will need outpatient PFTs after his acute infection has resolved DVT/GI prophylaxis -Continue NOAC -Protonix 40 mg daily CODE STATUS -Per discussion with patient with his present in the emergency department patient does not want to be resuscitated but would want short-term intubation -DNR CCA okay for short-term intubation order placed Inpatient E&M: [id number] [facility] Hosp L2
[2020-11-15 17:50] LABS: Bedside Glucose 378 mg/dL (70-110)
[2020-11-15] MEDS: Atorvastatin Calcium 20 MG Tablet PO (18:11)
[2020-11-15] MEDS: Rivaroxaban 20 MG Tablet PO (18:11)
[2020-11-16] VITALS (41 sets, daily range): BP systolic 72–150; BP diastolic 46–80; PULSE 62–89; RESP 12–37; TEMP 36.5–38.8; O2SAT 80–97; BMI 42.7
[2020-11-16 00:51] LABS: Bedside Glucose 331 mg/dL (70-110)
--- NOTE | 2020-11-16 01:58 | CPS ---
Pt. explained significance of wearing BiPAP at night time, but after a couple hours, pt. adamantly requested for us to take mask off. Mask was taken off, and pt. was placed back on AirVo (60L - 75%).
[2020-11-16 04:45] LABS: Absolute Lymphocyte Count 1.26 X10^3/uL (0.83-4.51); Absolute Neutrophil Count 4.9 X10^3/uL (2.0-7.7); Basophil# 0.01 X10^3/uL; Basophil% 0.1 % (0-1); Hematocrit 39.7 % (40-54); Hemoglobin 13.7 g/dL (13.0-16.5); Lymphocyte # 1.26 X10^3/ul (0.83-4.51); Lymphocyte % 18.4 % (19-41); Mean Corp Hgb Conc 34.5 g/dL (32-36); Mean Corpuscular Hgb 33.9 pg (27.0-32.0); Mean Corpuscular Volume 98.3 fL (80-94); Mean Platelet Vol. 10.6 fl (6.2-12.0); Monocyte# 0.58 X10^3/uL; Monocyte% 8.5 % (0-10); NRBC Flagged by Analyzer 0 % (0-5); Neutrophil # 4.94 X10^3/uL (2.7-7.7); Neutrophil % 72.4 % (47-70); Platelet Count 129 K/mm3 (150-450); RBC Distribution Width CV 13.2 % (11.6-14.6); RBC Distribution Width SD 47.8 fl (35.1-43.9); Red Blood Count 4.04 M/mm3 (4.6-6.2); White Blood Count 6.8 K/mm3 (4.4-11.0)
[2020-11-16 04:57] LABS: ALB/GLOB Ratio 0.7 RATIO (0.9-2.4); AST(SGOT) 48 U/L (15-37); Alanine Aminotransfer ALT/SGPT 64 U/L (16-61); Albumin, Serum 2.9 g/dL (3.2-5.0); Alkaline Phosphatase 65 U/L (45-117); Anion Gap 4 (5-15); BUN 20 mg/dL (7-18); BUN/Creat Ratio 18.5 RATIO (10-20); Calcium,Total 8.2 mg/dL (8.5-10.1); Chloride 101 mmol/L (98-107); Creatinine, Serum 1.08 mg/dL (0.70-1.30); EST Glomerular Filtration Rate 72 mL/min (>60); Est Glom Filt Rate - Afr Amer 88 mL/min (>60); Estimated Creatinine Clearance 81.49 ml/min; Glucose 280 mg/dL (74-106); Potassium 4.3 mmol/L (3.5-5.1); Protein, Total 6.9 g/dL (6.4-8.2); Sodium Level 132 mmol/L (136-145)
[2020-11-16] MEDS: Lactated Ringers 1,000 ML 75 ML IV (05:56)
[2020-11-16] MEDS: Ipratropium/Albuterol Sulfate 3 ML AMPUL.NEB INHALATION ×3 (07:31→18:51)
[2020-11-16] MEDS: Insulin Lispro 100 UNIT/ML INSULN.PEN SC ×4 (08:15→23:45)
[2020-11-16] MEDS: Insulin Lispro 100 UNIT/ML INSULN.PEN 10 UNIT SC ×4 (08:16→23:45)
[2020-11-16 08:26] LABS: Bedside Glucose 236 mg/dL (70-110)
--- NOTE | 2020-11-16 10:05 | NURSING ---
Dr. Perez and Dr. Padgett at bedside for intubation 1006 20 mg etomidate given 1008 40 mg propofol given 1009 Size 8 ETT inserted to 25 cm at the lips w/ + color change 1010 Additional 40 mg propofol given 1014 Additional 20 mg propofol given OG inserted w/ + air bolus and called for stat portable CXR Fentanyl and Propofol gtts initiated at 1015
[2020-11-16] MEDS: Etomidate 20 MG/10 ML Vial IV (10:06)
[2020-11-16] MEDS: Propofol 200 MG/20 ML Vial 40 MG IV BOLUS ×2 (10:08→10:10)
--- NOTE | 2020-11-16 10:10 | RAD_ITS ---
STUDY: X-RAY CHEST REASON FOR EXAM: Male, 65 years old. ETT placement TECHNIQUE: Single AP portable view of the chest. COMPARISON: Comparison is made with prior examination 11/14/2020. FINDINGS: An endotracheal tube is in situ. The tip is at 2.7 cm proximal to the sarah. A nasogastric tube is seen with the tip in the body of the stomach. EKG electrodes are seen. Since prior study, there has been progressive infiltrates in both lungs worse in the lateral aspect of the right hemithorax. Pneumonitis secondary to Covid should be ruled out. Blunting of both concerning angles. Normal size heart. Normal mediastinum and luli. Normal visualized pulmonary arteries. Normal visualized aortic arch and descending thoracic aorta. There are diffuse degenerative changes of the visualized thoracic spine. Normal visualized ribs, clavicles, and shoulders. There is no demonstrated abnormality of the visualized soft tissue structures of the upper abdomen. RAD/Chest 1 View (Portable) IMPRESSION: Progressive bilateral pulmonary infiltrates worse on the right side. Pneumonitis secondary to Covid should be ruled out. Electronically Signed: Zachary Mott MD at 10:42 EDT , Service support ,
[2020-11-16] MEDS: Propofol 200 MG/20 ML Vial 20 MG IV BOLUS (10:14)
[2020-11-16] MEDS: Propofol 10MG/Ml 1,000 MG/100 ML Bottle 19.1 MG CONT INF ×3 (10:15→23:00)
[2020-11-16] MEDS: Propofol 10MG/Ml 1,000 MG/100 ML Bottle 28.7 MG CONT INF ×2 (11:30→14:25)
[2020-11-16] MEDS: guaiFENesin 1,200 MG Tablet 1200 MG PO (11:37)
[2020-11-16] MEDS: Pantoprazole Sodium 40 MG Tablet PO (11:38)
[2020-11-16] MEDS: dexAMETHasone 4 MG Tablet 6 MG PO (11:38)
[2020-11-16] MEDS: Aspirin 81 MG TAB.CHEW PO (11:38)
[2020-11-16] MEDS: LORazepam 2 MG/ML Syringe IV (11:42)
[2020-11-16 11:50] LABS: Allen Test Positive; Base Excess 0 mmol/L (-2 to +2); Bicarbonate 23.7 mmol/L (22-26); Blood Gas Specimen Type ART; FI02 100; Mode AC; O2 Delivery Device Adult Vent; PEEP 10; PO2 54 mmHG (75-100); RR 14; SITE R Radial; SO2 90 % (95-99); Total Carbon Dioxide 25 mmol/L; Vt 500; pCO2 34.1 mmHg (35-45); pH 7.45 (7.35-7.45)
[2020-11-16 12:25] LABS: Bedside Glucose 206 mg/dL (70-110)
--- NOTE | 2020-11-16 13:26 | CPS ---
had to get 2nd Duomed out due to not having aersol container tight
--- NOTE | 2020-11-16 13:42 | PCM.NTREPORT ---
Nutrition Therapy Report - History Nutrition Services has been consulted to:: Manage nutrient details of diet order, Manage enteral nutrition Current diet / nutrition support order:: consistent carbohydrate, 2000 calorie controlled, cardiac - Anthropometric Measurements Height:: 6 ft 4 in Weight:: 159.5 kg Body Mass Index (BMI):: 42.7 - Relevant Labs Relevant Labs:: WBC 3.9 K/mm3 (4.4-11.0) L 11/15/20 04:35 RBC 4.04 M/mm3 (4.6-6.2) L 11/16/20 04:30 Hct 39.7 % (40-54) L 11/16/20 04:30 MCV 98.3 fL (80-94) H 11/16/20 04:30 MCH 33.9 pg (27.0-32.0) H 11/16/20 04:30 RDW Std Deviation 47.8 fl (35.1-43.9) H 11/16/20 04:30 Plt Count 129 K/mm3 (150-450) L 11/16/20 04:30 Neut % (Auto) 72.4 % (47-70) H 11/16/20 04:30 Lymph % (Auto) 18.4 % (19-41) L 11/16/20 04:30 Absolute Lymphs (auto) 0.80 X10^3/uL (0.83-4.51) L 11/14/20 10:15 PT 16.5 SECONDS (11.7-14.9) H 11/14/20 10:15 APTT 37.8 Seconds (24.1-36.2) H 11/14/20 10:15 Sodium 132 mmol/L (136-145) L 11/16/20 04:30 Chloride 95 mmol/L (98-107) L 11/14/20 10:15 Anion Gap 4 (5-15) L 11/16/20 04:30 BUN 20 mg/dL (7-18) H 11/16/20 04:30 Glucose 280 mg/dL (74-106) H 11/16/20 04:30 Calcium 8.2 mg/dL (8.5-10.1) L 11/16/20 04:30 AST 48 U/L (15-37) H 11/16/20 04:30 ALT 64 U/L (16-61) H 11/16/20 04:30 Albumin 2.9 g/dL (3.2-5.0) L 11/16/20 04:30 Albumin/Globulin Ratio 0.7 RATIO (0.9-2.4) L 11/16/20 04:30 - Assessment Food / Nutrition-Related History:: Discussed in ICU rounds. Remains in isolation d/t COVID-19. Per rounds, pt to be intubated this date d/t worsening resp. status. Nursing staff reports decline in appetite/intake d/t increased work of breathing. No significant wt change since admission. Per rounds, okay to start enteral nutrition support. - Nutrition Diagnosis Problem / Etiology / Signs & Symptoms (PES):: swallowing difficulty r/t mechancial intubation as evidenced by inability to consume sufficient nutrition via PO diet Evidence of Malnutrition Exists:: No - Nutrition Intervention Nutrition Prescription:: [id number] calories/day (22-25 calories/kg IBW 91kg). 172-182 g protein/day (2g/kg IBW). 2100mL fluid/day (1mL/calorie) - Food / Nutrient Delivery Interventions Summary of nutrition intervention:: Will order enteral nutrition and change diet to NPO. Nutrition support ordered as / adjusted to:: while intubated, Vital HP via OGT at goal rate of 80mL/hour w/ 50mL H2O flush every 4 hours to provide 1920 calories, 168 g protein, and 1905mL total fluid/day. Would start at 20mL/hour and increase by 20mL every 8 hours as pt tolerates until goal rate achieved. - MNT Monitoring Further MNT monitoring and evaluation required?: Yes MNT Follow-up in:: 1-2 days
[2020-11-16 13:45] LABS: CPK Total, Creatine Kinase 155 U/L (39-308); Triglycerides 117 mg/dL
[2020-11-16] MEDS: Chlorhexidine 15 ML PO ×2 (14:00→21:12)
--- NOTE | 2020-11-16 14:17 | PCM.PN.INT ---
Subjective: Late entry. Patient with progressive hypoxia over the last 24 hours. This morning discussed with the patient and he reported himself as tired. Discussed possible utility of intubation. Patient states he is willing to be trached if necessary and agreed to intubation. Patient was intubated at approximately 9:30 AM without complication using a glide scope by Dr. Perez. General: - - Intubated and sedated. Morbidly obese. Fair vent synchrony. HEENT: Atraumatic, PERRLA, EOMI, Normocephalic, - - No scleral icterus or injection noted Oral: Moist Mucosa, No Gingival or Mucosal Lesions/ Ulcerations, - - Carotid posterior pharynx Neck: Supple, No Nodes, Trachea Midline Lungs: No rhonchi, No wheeze, No rales, Diminished Cardiovascular: Normal S1, Normal S2, No murmurs, No rub noted, No Gallop, Tachycardic Abdomen: Bowel Sounds Present, Soft, Non Tender, Non-Distended, Obese Extremities: No clubbing, No cyanosis, No edema, Capillary Refill Less than 3 Seconds Skin: No rashes, No breakdown Musculoskeletal: No Tenderness to Palpation of Joints or Extremities Lymphatic: No Cervical, Supraclavicular, or Inguinal Adenopathy Neurological: Cranial nerves II-XII grossly intact, Neuro grossly intact, Motor Exam 5/5 strength throughout Psych/Mental Status: Anxious, Flat Affect Vital Signs Temp Pulse Resp BP Pulse Ox 38.7 C H 80 27 H 98/49 L 90 11/16/20 14:03 11/16/20 14:03 11/16/20 14:03 11/16/20 14:03 11/16/20 14:03 Oxygen Flow Rate (L/min) 60 Oxygen Delivery Method Mechanical Ventilator Weight: 159.5 kg Body Mass Index (BMI) 42.7 Intake and Output for Last 24 Hours 11/14/20 11/15/20 11/16/20 23:59 23:59 23:59 Intake Total 1250 / 1250 2905.0 / 2905.0 2036.60 / 2036.60 Output Total 1800 / 1800 1600 / 1600 875 / 875 Balance -550 / -550 1305.0 / 1305.0 1161.60 / 1161.60 Labs (Last 48 Hours) 11/14/20 11/14/20 11/14/20 14:45 14:45 15:30 WBC RBC Hgb Hct MCV MCH MCHC RDW Std Deviation RDW Coeff of [place] Plt Count MPV Immature Gran % (Auto) Neut % (Auto) Lymph % (Auto) [place] % (Auto) Eos % (Auto) Baso % (Auto) Absolute Neuts (auto) Absolute Lymphs (auto) Nucleated RBC % Specimen Type Sample Site pH Bicarbonate Actual Total CO2 Base Excess O2 Saturation O2 % ABG pCO2 ABG pO2 Erick Test Respiration Rate O2 Delivery Device Vent Mode Tidal Volume POC PEEP Sodium Potassium Chloride Carbon Dioxide Anion Gap BUN Creatinine Estim Creat Clear Calc Est GFR (MDRD) Af Amer Est GFR (MDRD) Non-Af BUN/Creatinine Ratio Glucose Lactic Acid 1.5 Calcium Phosphorus Magnesium Total Bilirubin AST ALT Alkaline Phosphatase Total Creatine Kinase Troponin I 0.024 Total Protein Albumin Globulin Albumin/Globulin Ratio Triglycerides Urine Color Yellow Urine Clarity Clear Urine pH 6.0 Ur Specific [place] 1.015 Urine Protein 30 H Urine Glucose (UA) 250 H Urine Ketones 5 H Urine Occult Blood Negative Urine Nitrite Negative Urine Bilirubin Negative Urine Urobilinogen Normal Ur Leukocyte Esterase Negative Urine RBC 0 SEEN Urine WBC 0-5 SEEN Ur Squamous Epith Cells 0-5 SEEN Urine Bacteria 0 SEEN Urine Mucus 0 SEEN POC Glucose 11/14/20 11/14/20 11/14/20 17:09 18:00 20:57 WBC RBC Hgb Hct MCV MCH MCHC RDW Std Deviation RDW Coeff of [place] Plt Count MPV Immature Gran % (Auto) Neut % (Auto) Lymph % (Auto) [place] % (Auto) Eos % (Auto) Baso % (Auto) Absolute Neuts (auto) Absolute Lymphs (auto) Nucleated RBC % Specimen Type Sample Site pH Bicarbonate Actual Total CO2 Base Excess O2 Saturation O2 % ABG pCO2 ABG pO2 Erick Test Respiration Rate O2 Delivery Device Vent Mode Tidal Volume POC PEEP Sodium Potassium Chloride Carbon Dioxide Anion Gap BUN Creatinine Estim Creat Clear Calc Est GFR (MDRD) Af Amer Est GFR (MDRD) Non-Af BUN/Creatinine Ratio Glucose Lactic Acid Calcium Phosphorus Magnesium Total Bilirubin AST ALT Alkaline Phosphatase Total Creatine Kinase Troponin I 0.024 Total Protein Albumin Globulin Albumin/Globulin Ratio Triglycerides Urine Color Urine Clarity Urine pH Ur Specific [place] Urine Protein Urine Glucose (UA) Urine Ketones Urine Occult Blood Urine Nitrite Urine Bilirubin Urine Urobilinogen Ur Leukocyte Esterase Urine RBC Urine WBC Ur Squamous Epith Cells Urine Bacteria Urine Mucus POC Glucose 374 H 376 H 11/15/20 11/15/20 11/15/20 04:35 04:35 07:35 WBC 3.9 L RBC 4.12 L Hgb 13.9 Hct 40.5 MCV 98.3 H MCH 33.7 H MCHC 34.3 RDW Std Deviation 47.6 H RDW Coeff of [place] 13.2 Plt Count 116 L MPV 10.3 Immature Gran % (Auto) 0.500 Neut % (Auto) 64.0 Lymph % (Auto) 25.2 [place] % (Auto) 10.0 Eos % (Auto) 0.0 Baso % (Auto) 0.3 Absolute Neuts (auto) 2.5 Absolute Lymphs (auto) 0.98 Nucleated RBC % 0 Specimen Type Sample Site pH Bicarbonate Actual Total CO2 Base Excess O2 Saturation O2 % ABG pCO2 ABG pO2 Erick Test Respiration Rate O2 Delivery Device Vent Mode Tidal Volume POC PEEP Sodium 131 L Potassium 4.8 Chloride 100 Carbon Dioxide 27.0 Anion Gap 4 L BUN 17 Creatinine 1.00 Estim Creat Clear Calc 88.01 Est GFR (MDRD) Af Amer 96 Est GFR (MDRD) Non-Af 79 BUN/Creatinine Ratio 17.0 Glucose 307 H Lactic Acid Calcium 8.0 L Phosphorus 3.3 Magnesium 2.0 Total Bilirubin 0.70 AST 53 H ALT 75 H Alkaline Phosphatase 63 Total Creatine Kinase Troponin I Total Protein 6.8 Albumin 2.9 L Globulin 3.9 Albumin/Globulin Ratio 0.7 L Triglycerides Urine Color Urine Clarity Urine pH Ur Specific [place] Urine Protein Urine Glucose (UA) Urine Ketones Urine Occult Blood Urine Nitrite Urine Bilirubin Urine Urobilinogen Ur Leukocyte Esterase Urine RBC Urine WBC Ur Squamous Epith Cells Urine Bacteria Urine Mucus POC Glucose 283 H 11/15/20 11/15/20 11/15/20 12:04 17:27 22:35 WBC RBC Hgb Hct MCV MCH MCHC RDW Std Deviation RDW Coeff of [place] Plt Count MPV Immature Gran % (Auto) Neut % (Auto) Lymph % (Auto) [place] % (Auto) Eos % (Auto) Baso % (Auto) Absolute Neuts (auto) Absolute Lymphs (auto) Nucleated RBC % Specimen Type Sample Site pH Bicarbonate Actual Total CO2 Base Excess O2 Saturation O2 % ABG pCO2 ABG pO2 Erick Test Respiration Rate O2 Delivery Device Vent Mode Tidal Volume POC PEEP Sodium Potassium Chloride Carbon Dioxide Anion Gap BUN Creatinine Estim Creat Clear Calc Est GFR (MDRD) Af Amer Est GFR (MDRD) Non-Af BUN/Creatinine Ratio Glucose Lactic Acid Calcium Phosphorus Magnesium Total Bilirubin AST ALT Alkaline Phosphatase Total Creatine Kinase Troponin I Total Protein Albumin Globulin Albumin/Globulin Ratio Triglycerides Urine Color Urine Clarity Urine pH Ur Specific [place] Urine Protein Urine Glucose (UA) Urine Ketones Urine Occult Blood Urine Nitrite Urine Bilirubin Urine Urobilinogen Ur Leukocyte Esterase Urine RBC Urine WBC Ur Squamous Epith Cells Urine Bacteria Urine Mucus POC Glucose 313 H 378 H 331 H 11/16/20 11/16/20 11/16/20 04:30 04:30 04:30 WBC 6.8 RBC 4.04 L Hgb 13.7 Hct 39.7 L MCV 98.3 H MCH 33.9 H MCHC 34.5 RDW Std Deviation 47.8 H RDW Coeff of [place] 13.2 Plt Count 129 L MPV 10.6 Immature Gran % (Auto) 0.600 Neut % (Auto) 72.4 H Lymph % (Auto) 18.4 L [place] % (Auto) 8.5 Eos % (Auto) 0.0 Baso % (Auto) 0.1 Absolute Neuts (auto) 4.9 Absolute Lymphs (auto) 1.26 Nucleated RBC % 0 Specimen Type Sample Site pH Bicarbonate Actual Total CO2 Base Excess O2 Saturation O2 % ABG pCO2 ABG pO2 Erick Test Respiration Rate O2 Delivery Device Vent Mode Tidal Volume POC PEEP Sodium 132 L Potassium 4.3 Chloride 101 Carbon Dioxide 27.0 Anion Gap 4 L BUN 20 H Creatinine 1.08 Estim Creat Clear Calc 81.49 Est GFR (MDRD) Af Amer 88 Est GFR (MDRD) Non-Af 72 BUN/Creatinine Ratio 18.5 Glucose 280 H Lactic Acid Calcium 8.2 L Phosphorus Magnesium Total Bilirubin 0.70 AST 48 H ALT 64 H Alkaline Phosphatase 65 Total Creatine Kinase 155 Troponin I Total Protein 6.9 Albumin 2.9 L Globulin 4.0 Albumin/Globulin Ratio 0.7 L Triglycerides 117 Urine Color Urine Clarity Urine pH Ur Specific [place] Urine Protein Urine Glucose (UA) Urine Ketones Urine Occult Blood Urine Nitrite Urine Bilirubin Urine Urobilinogen Ur Leukocyte Esterase Urine RBC Urine WBC Ur Squamous Epith Cells Urine Bacteria Urine Mucus POC Glucose 11/16/20 11/16/20 11/16/20 08:10 11:39 11:59 WBC RBC Hgb Hct MCV MCH MCHC RDW Std Deviation RDW Coeff of [place] Plt Count MPV Immature Gran % (Auto) Neut % (Auto) Lymph % (Auto) [place] % (Auto) Eos % (Auto) Baso % (Auto) Absolute Neuts (auto) Absolute Lymphs (auto) Nucleated RBC % Specimen Type ART Sample Site R Radial pH 7.45 Bicarbonate Actual 23.7 Total CO2 25 Base Excess 0 O2 Saturation 90 L O2 % 100 ABG pCO2 34.1 L ABG pO2 54 L Erick Test Positive Respiration Rate 14 O2 Delivery Device Adult Vent Vent Mode AC Tidal Volume 500 POC PEEP 10 Sodium Potassium Chloride Carbon Dioxide Anion Gap BUN Creatinine Estim Creat Clear Calc Est GFR (MDRD) Af Amer Est GFR (MDRD) Non-Af BUN/Creatinine Ratio Glucose Lactic Acid Calcium Phosphorus Magnesium Total Bilirubin AST ALT Alkaline Phosphatase Total Creatine Kinase Troponin I Total Protein Albumin Globulin Albumin/Globulin Ratio Triglycerides Urine Color Urine Clarity Urine pH Ur Specific [place] Urine Protein Urine Glucose (UA) Urine Ketones Urine Occult Blood Urine Nitrite Urine Bilirubin Urine Urobilinogen Ur Leukocyte Esterase Urine RBC Urine WBC Ur Squamous Epith Cells Urine Bacteria Urine Mucus POC Glucose 236 H 206 H Microbiology 11/14/20 10:45 Blood Culture (Wb) - Anticubital Right Blood Culture - Preliminary No growth in 48 hours. 11/14/20 10:15 Blood Culture (Wb) - Anticubital Left Blood Culture - Preliminary No growth in 48 hours. 11/14/20 10:20 Nasal Secretion SARS-CoV-2 Antigen (Rapid) - Final SARS-CoV-2 (COVID 19) Clinical Impression(s) from Imaging Studies Chest X-Ray 11/16/20 10:10 IMPRESSION: Progressive bilateral pulmonary infiltrates worse on the right side. Pneumonitis secondary to Covid should be ruled out. Electronically Signed: Zachary Mott MD at 10:42 EDT , Service support , Medical Necessity - Tobacco Use Smoking Status: Former smoker Assessment/Plan All Active Problems COVID-19 (Acute) Thrombocytopenia (Acute) Leukopenia (Acute) Transaminitis (Acute) Hyponatremia (Acute) RECOMMENDATIONS: 1. Continue with Decadron and remdesivir 2. Spontaneous breathing and awakening trials per protocol. Wean oxygen as tolerated 3. Aggressive control of blood sugars 4. Possibly transition to Eliquis if patient develops renal dysfunction 5. Discontinue IV fluids. Initiate tube feeds. IMPRESSIONS: 1. Acute hypoxic respiratory failure secondary to COVID-19 pneumonia Patient high risk for progression of disease. Patient does have a history of PE in the past, but is on full dose anticoagulation. This can be continued from my standpoint for clot prophylaxis. Patient has appropriately been initiated on Decadron and remdesivir. Patient with rapid decompensation over the last 24 hours. Currently intubated. Elevated PEEP and FiO2 required to maintain saturations. Spontaneous breathing and awakening trials per protocol. Continue remdesivir to complete 5-day course and Decadron for a 10-day course. 2. Leukopenia/thrombocytopenia Improving. Clinical suspicion this is secondary to COVID-19. No bleeding complications have been reported. Okay to continue with Xarelto therapy from my perspective. 3. Diabetes mellitus without insulin requirements Patient does not require insulin at baseline, but given Decadron therapy, highly suspicious that supplemental insulin will be required. Agree with initiation of Lantus and titration as necessary with sliding scale coverage 4. Morbid obesity/YASMIN/hypertension/hyperlipidemia Complicates care, management, recovery and prognosis. Did offer to use patient's home machine for comfort to allow for compliance with YASMIN therapy. TIME: 40 minutes critical care time spent addressing patient's acute hypoxic respiratory failure, diabetes mellitus, hypertension, YASMIN, review of all data and collaboration with care team (9 AM to 11 AM) [phone]: [id number] Critical care first hour
--- NOTE | 2020-11-16 16:06 | PCM.HOSP.N ---
Hospitalist Note Intubation note Diagnosis: Acute hypoxic respiratory failure secondary to Covid pneumonia Sedation: Etomidate 20 mg/propofol 80 mg Timeout completed: Yes Elective Mr. Alcocer was positioned in the bed. Timeout was completed after which 20 of etomidate was given followed by 40 mg of propofol. The patient was lied back flat and bagged for optimal oxygenation. A glide scope with a 4 Mac blade was inserted into the oropharynx and a grade 1 visualization of the vocal cords was obtained. An 8 ET tube was easily inserted through the vocal cords into the trachea. Stylette was removed. The patient had equal bilateral breath sounds, color change on an end-tidal CO2 detector, and condensation in the ET tube. A chest x-ray was ordered and confirmed placement with ET tube being at 25 at the lips. Multi Select Codes - Hospitalists' Procedures Procedures: 44753 Insert Emergency Airway
--- NOTE | 2020-11-16 16:11 | PCM.PN.HOSP ---
Patient Problems: Active and Suspected Problems COVID-19 (Acute) Thrombocytopenia (Acute) Leukopenia (Acute) Transaminitis (Acute) Hyponatremia (Acute) Subjective: Patient again with worsening oxygenation status overnight and refusal to wear BiPAP. He is now on air Vo with an FiO2 of 85% and a flow of 60 L/min oxygen saturations were 85- 87%. After extensive discussion with the patient the decision for elective intubation at this time for improved oxygenation was made and the patient was intubated at approximately 10:00 this morning. He now is on the ventilator with an FiO2 of 100% and a PEEP of 14 with oxygen saturations of 90 to 91%. Vitals/I&O's: Vital Signs Temp Pulse Resp BP Pulse Ox 101.8 F H 76 25 H 100/54 L 91 11/16/20 15:00 11/16/20 15:48 11/16/20 15:48 11/16/20 15:00 11/16/20 15:48 Oxygen Flow Rate (L/min) 60 Oxygen Delivery Method Mechanical Ventilator Weight: 159.5 kg Body Mass Index (BMI) 42.7 Intake and Output for Last 24 Hours 11/14/20 11/15/20 11/16/20 23:59 23:59 23:59 Intake Total 1250 / 1250 2905.0 / 2905.0 2077.26 / 2077.26 Output Total 1800 / 1800 1600 / 1600 875 / 875 Balance -550 / -550 1305.0 / 1305.0 1202.26 / 1202.26 General: - - Intubated and sedated HEENT: Atraumatic, Normocephalic Oral: Moist Mucosa, - - ET tube in place Neck: Supple, Trachea Midline, Thyroid Normal Size and Texture Lungs: No rhonchi, No wheeze, No rales, Diminished Cardiovascular: Regular rate, Regular Rhythm, Normal S1, Normal S2, No murmurs, No Ectopic Activity, No rub noted, No Gallop Abdomen: Bowel Sounds Present, Soft, Non Tender, Non-Distended, Obese Extremities: No clubbing, No cyanosis, No edema, Capillary Refill Less than 3 Seconds, Peripheral Pulses Normal Skin: No rashes, No breakdown Lymphatic: No Cervical, Supraclavicular, or Inguinal Adenopathy Microbiology Past 72 Hours 11/14/20 10:45 Blood Culture (Wb) - Anticubital Right Blood Culture - Preliminary No growth in 48 hours. 11/14/20 10:15 Blood Culture (Wb) - Anticubital Left Blood Culture - Preliminary No growth in 48 hours. 11/14/20 10:20 Nasal Secretion SARS-CoV-2 Antigen (Rapid) - Final SARS-CoV-2 (COVID 19) Laboratory Results 11/15/20 17:27: POC Glucose 378 H 11/15/20 22:35: POC Glucose 331 H 11/16/20 04:30: WBC 6.8, RBC 4.04 L, Hgb 13.7, Hct 39.7 L, MCV 98.3 H, MCH 33.9 H, MCHC 34.5, RDW Std Deviation 47.8 H, RDW Coeff of Keyonna 13.2, Plt Count 129 L, MPV 10.6, Immature Gran % (Auto) 0.600, Neut % (Auto) 72.4 H, Lymph % (Auto) 18.4 L, Casey % (Auto) 8.5, Eos % (Auto) 0.0, Baso % (Auto) 0.1, Absolute Neuts (auto) 4.9, Absolute Lymphs (auto) 1.26, Nucleated RBC % 0 11/16/20 04:30: Sodium 132 L, Potassium 4.3, Chloride 101, Carbon Dioxide 27.0, Anion Gap 4 L, BUN 20 H, Creatinine 1.08, Estim Creat Clear Calc 81.49, Est GFR (MDRD) Af Amer 88, Est GFR (MDRD) Non-Af 72, BUN/Creatinine Ratio 18.5, Glucose 280 H, Calcium 8.2 L, Total Bilirubin 0.70, AST 48 H, ALT 64 H, Alkaline Phosphatase 65, Total Protein 6.9, Albumin 2.9 L, Globulin 4.0, Albumin/Globulin Ratio 0.7 L 11/16/20 04:30: Total Creatine Kinase 155, Triglycerides 117 11/16/20 08:10: POC Glucose 236 H 11/16/20 11:39: Specimen Type ART, Sample Site R Radial, pH 7.45, Bicarbonate Actual 23.7, Total CO2 25, Base Excess 0, O2 Saturation 90 L, O2 % 100, ABG pCO2 34.1 L, ABG pO2 54 L, Erick Test Positive, Respiration Rate 14, O2 Delivery Device Adult Vent, Vent Mode AC, Tidal Volume 500, POC PEEP 10 11/16/20 11:59: POC Glucose 206 H Current Medications Acetaminophen (Acetaminophen 650 Mg/20 Ml Udc) 650 mg NG Q6H PRN PRN PRN Reason: Pain Score 1-10/Temp > 100.7 F Al Hydroxide/Mg Hydroxide (Mag Hydrox/Al Hydrox/Simeth 30 Ml Udc) 30 ml PO Q6H PRN PRN PRN Reason: Gastric Burning Albuterol/Ipratropium (Ipratropium/Albuterol Sulfate 3 Ml Ampul.Neb) 3 ml INHALATION Q6HWA.RT [facility] Last Admin: 11/16/20 13:25 Dose: 3 ml Documented by: Aspirin (Aspirin 81 Mg Tab.Chew) 81 mg PO DAILY@0800 [facility] Last Admin: 11/16/20 11:38 Dose: 81 mg Documented by: Atorvastatin Calcium (Atorvastatin Calcium 20 Mg Tablet) 20 mg PO 1700 [facility] Last Admin: 11/15/20 18:11 Dose: 20 mg Documented by: Dexamethasone (Dexamethasone 4 Mg Tablet) 6 mg PO DAILY [facility] Stop: 11/23/20 10:01 Last Admin: 11/16/20 11:38 Dose: 6 mg Documented by: Dextrose (Dextrose 50%-Water 25 Gm/50 Ml Disp.Syrin) 0 gm IV X1 PRN; Protocol PRN Reason: Hypoglycemia Glucagon (Glucagon 1 Mg/Ml Syringe) 1 mg IM .X1 PRN PRN Reason: Hypoglycemia Guaifenesin (Guaifenesin 1,200 Mg Tablet) 1,200 mg PO BID [facility] Last Admin: 11/16/20 11:37 Dose: 1,200 mg Documented by: Hydralazine HCl (Hydralazine 20 Mg/Ml Vial) 10 mg IV Q6H PRN PRN PRN Reason: SBP>160 Lactated Ringer's () 1,000 mls @ 75 mls/hr IV .[id number] [facility] Last Infusion: 11/16/20 10:00 Dose: 0 mls/hr Documented by: Remdesivir 100 mg/ Sodium (Chloride) 250 mls @ 125 mls/hr IV DAILY [facility]; Protocol Stop: 11/18/20 11:59 Last Infusion: 11/16/20 12:55 Dose: Infused Documented by: Propofol (Diprivan) 1,000 mg in 100 mls @ 9.57 mls/hr CONT INF .[id number] [facility]; Protocol Last Admin: 11/16/20 14:25 Dose: 30 mcg/kg/min, 28.7 mls/hr Documented by: Fentanyl Citrate 1,000 mcg/ (Sodium Chloride) 100 mls @ 5 mls/hr CONT INF .Q20H [facility]; Protocol Last Titration: 11/16/20 13:00 Dose: 200 mcg/hr, 20 mls/hr Documented by: Enteral Nutritional Formula (Vital High Protein) 1,000 mls @ 80 mls/hr GT .[id number] [facility] Insulin Glargine (Insulin Glargine 100 Units/Ml Pen) 50 units SC QHS BARBI Insulin Human Lispro (Insulin Lispro 100 Unit/Ml Insuln.Pen) 0 unit SC ACHS [facility]; Protocol Last Admin: 11/16/20 12:13 Dose: 2 u Documented by: Insulin Human Lispro (Insulin Lispro 100 Unit/Ml Insuln.Pen) 10 unit SC TIDAC [facility] Last Admin: 11/16/20 12:14 Dose: 10 u Documented by: Lisinopril (Lisinopril 10 Mg Tablet) 10 mg PO DAILY [facility] Last Admin: 11/16/20 11:39 Dose: Not Given Documented by: Melatonin (Melatonin 3 Mg Tablet) 3 mg PO QHS PRN PRN PRN Reason: INSOMNIA Metoprolol Tartrate (Metoprolol Tartrate 50 Mg Tablet) 50 mg PO BID [facility] Last Admin: 11/16/20 11:38 Dose: Not Given Documented by: Ondansetron HCl (Ondansetron 4 Mg/2 Ml Vial) 4 mg IV Q8H PRN PRN PRN Reason: NAUSEA/VOMITING Pantoprazole Sodium (Pantoprazole Sodium 40 Mg Tablet) 40 mg PO DAILY [facility] Last Admin: 11/16/20 11:38 Dose: 40 mg Documented by: Rivaroxaban (Rivaroxaban 20 Mg Tablet) 20 mg PO DAILY@1700 [facility] Last Admin: 11/15/20 18:11 Dose: 20 mg Documented by: Senna/Docusate Sodium (Senna/Docusate Sodium 1 Tablet) 2 tablet PO BID PRN PRN PRN Reason: Constipation Sodium Chloride (0.9% Saline Lock 10 Ml Syringe) 10 - 40 ml IV UD PRN PRN Reason: SALINE FLUSH Last Admin: 11/14/20 17:25 Dose: 10 ml Documented by: STROKE Vital Signs/Narrative: Vital Signs Temp Pulse Resp BP BP Pulse Ox 11/16/20 15:48 76 25 H 91 11/16/20 15:00 101.8 F H 73 26 H 100/54 L 90 11/16/20 14:03 101.6 F H 80 27 H 98/49 L 90 11/16/20 13:20 89 24 H 80 11/16/20 13:00 79 27 H 99/60 91 11/16/20 12:55 79 Medical Necessity - Tobacco Use Smoking Status: Former smoker Assessment/Plan All Active Problems COVID-19 (Acute) Thrombocytopenia (Acute) Leukopenia (Acute) Transaminitis (Acute) Hyponatremia (Acute) Acute hypoxic respiratory failure secondary to COVID-19 pneumonia -Pt CXR with patchy B infiltrates -Patient has decompensated further to the point of requiring endotracheal intubation which was performed this morning -Currently on AC VC with a PEEP of 14 and an FiO2 of 100%--> SPO2 at this time is 90 to 91% -Continue remdesivir Day 10/06 -Decadron 6 mg daily--> day 10/11 -Blood cultures are negative at 48 hours -Continue BiPAP at at bedtime -Patient is extremely high risk for decompensation and this was discussed with both he and his in the emergency department -Pulmonary following Transaminitis -Most likely related to Covid -Improved in last 24 hours -Continue to monitor Leukopenia/thrombocytopenia -Leukopenia has resolved -Patient with persistent thrombocytopenia however counts are improving slowly -Likely related to Covid pneumonia Hyponatremia -Likely related to Covid -Remains stable at 132 -Continue to monitor DM-2 -Patient is on Trulicity, Metformin, and glimepiride at home -Hold all home medications at this time -Blood sugars remain markedly elevated but improved since yesterday -Lantus increased to 50 units at at bedtime -Convert 3 times daily 10 units to 10 units every 6 hours now the patient is intubated and will be on tube feed -Goal blood sugars are 140-1 80 -6-hour blood sugars Hypertension -Patient's blood pressure is improved now that he is intubated -Discontinue lisinopril -Decrease metoprolol from 50 units twice daily to 25 units twice daily -Hold parameters placed Hyperlipidemia -Continue statin History of coronary disease -Continue aspirin 81 mg nightly YASMIN -BiPAP at at bedtime History of pulmonary embolism -Continue Xarelto 20 mg daily Morbid obesity -BMI 42.6 -Complicates overall treatment, outcomes and prognosis History of tobacco abuse -Quit approximately 20 years ago -Suspect possible baseline COPD and will need outpatient PFTs after his acute infection has resolved DVT/GI prophylaxis -Continue NOAC -Protonix 40 mg daily CODE STATUS -Per discussion with patient with his present in the emergency department patient does not want to be resuscitated but would want short-term intubation - updated 11/16/2020 16:23 Inpatient E&M: [id number] Subs Hosp L2
[2020-11-16] MEDS: Rivaroxaban 20 MG Tablet PO (16:22)
[2020-11-16] MEDS: Atorvastatin Calcium 20 MG Tablet PO (16:22)
--- NOTE | 2020-11-16 16:25 | NURSING ---
Fentanyl drip remains running at rate of 175 mcg/hr/17.5 ml/hr and pump shows 2 hrs 8 min remaining despite MAR reflecting it has infused.
[2020-11-16 16:40] LABS: Bedside Glucose 216 mg/dL (70-110)
[2020-11-16] MEDS: Vital High Protein 1,000 ML 80 ML GT (16:57)
[2020-11-16] MEDS: guaiFENesin 10 ML UDC (200MG/10ML) GT (21:10)
[2020-11-16 23:56] LABS: Bedside Glucose 302 mg/dL (70-110)
[2020-11-17] VITALS (39 sets, daily range): BP systolic 80–136; BP diastolic 52–97; PULSE 66–94; RESP 12–39; TEMP 37.3–38.3; O2SAT 79–97
[2020-11-17] MEDS: Ipratropium/Albuterol Sulfate 3 ML AMPUL.NEB INHALATION ×4 (00:09→19:51)
[2020-11-17] MEDS: Propofol 10MG/Ml 1,000 MG/100 ML Bottle 19.1 MG CONT INF (01:15)
--- NOTE | 2020-11-17 01:22 | EKG12_ITS ---
Test Reason : STEMI Blood Pressure : / mmHG Vent. Rate : 072 BPM Atrial Rate : 072 BPM P-R Int : 152 ms QRS Dur : 092 ms QT Int : 462 ms P-R-T Axes : 042 047 057 degrees QTc Int : 505 ms Normal sinus rhythm Low voltage QRS Borderline ECG Confirmed by CLAIRE LOPEZ, DARIEN ([id number]), managing editor NICO LIVE ([id number]) on 11/27/2020 10:13:42 A M Referred By: BUDDY Confirmed By:SUZANNE RANGEL MD
--- NOTE | 2020-11-17 04:45 | RAD_ITS ---
STUDY: X-RAY CHEST REASON FOR EXAM: Male, 65 years old. hypoxemia, covid TECHNIQUE: AP COMPARISON: 11/16/2020 FINDINGS: Endotracheal tube is present with tip 3.9 cm from the sarah. Gastric tube tracks into the stomach beyond the image field. Cardiac and mediastinal silhouettes are unchanged. Persistent diffuse patchy pulmonary airspace opacities. There is no demonstrated abnormality of the visualized soft tissue structures of the upper abdomen. RAD/Chest 1 View (Portable) IMPRESSION: Stable support lines and tubes. Persistent diffuse pulmonary opacities. Electronically Signed: Lenny Merchant MD at 7:11 EDT Tel , Service support ,
[2020-11-17] MEDS: Insulin Lispro 100 UNIT/ML INSULN.PEN 10 UNIT SC (04:55)
[2020-11-17] MEDS: Insulin Lispro 100 UNIT/ML INSULN.PEN SC ×3 (04:55→16:43)
[2020-11-17] MEDS: guaiFENesin 10 ML UDC (200MG/10ML) GT ×3 (04:56→16:41)
[2020-11-17] MEDS: Propofol 10MG/Ml 1,000 MG/100 ML Bottle 47.9 MG CONT INF ×2 (04:58→07:04)
[2020-11-17 05:10] LABS: Allen Test Positive; Base Excess -5 mmol/L (-2 to +2); Bicarbonate 21.3 mmol/L (22-26); Blood Gas Specimen Type ART; FI02 100; Mode AC; O2 Delivery Device Adult Vent; PEEP 18; PO2 48 mmHG (75-100); RR 12; SITE R Brach; SO2 80 % (95-99); Total Carbon Dioxide 23 mmol/L; Vt 500; pCO2 41.8 mmHg (35-45); pH 7.32 (7.35-7.45)
[2020-11-17 05:23] LABS: Basophil# 0.01 X10^3/uL; Basophil% 0.1 % (0-1); Hematocrit 38.7 % (40-54); Hemoglobin 13.2 g/dL (13.0-16.5); Lymphocyte % 8.3 % (19-41); Mean Corp Hgb Conc 34.1 g/dL (32-36); Mean Corpuscular Hgb 34.1 pg (27.0-32.0); Mean Platelet Vol. 10.8 fl (6.2-12.0); Monocyte# 0.71 X10^3/uL; Monocyte% 8.4 % (0-10); NRBC Flagged by Analyzer 0 % (0-5); Neutrophil # 6.95 X10^3/uL (2.7-7.7); Neutrophil % 82.7 % (47-70); Platelet Count 140 K/mm3 (150-450); RBC Distribution Width CV 13.8 % (11.6-14.6); RBC Distribution Width SD 50.8 fl (35.1-43.9); Red Blood Count 3.87 M/mm3 (4.6-6.2); White Blood Count 8.4 K/mm3 (4.4-11.0)
[2020-11-17 05:50] LABS: ALB/GLOB Ratio 0.7 RATIO (0.9-2.4); AST(SGOT) 75 U/L (15-37); Alanine Aminotransfer ALT/SGPT 58 U/L (16-61); Albumin, Serum 2.7 g/dL (3.2-5.0); Alkaline Phosphatase 60 U/L (45-117); Anion Gap 8 (5-15); BUN 44 mg/dL (7-18); BUN/Creat Ratio 15.5 RATIO (10-20); Calcium,Total 7.7 mg/dL (8.5-10.1); Chloride 99 mmol/L (98-107); Creatinine, Serum 2.83 mg/dL (0.70-1.30); EST Glomerular Filtration Rate 24 mL/min (>60); Est Glom Filt Rate - Afr Amer 29 mL/min (>60); Globulin 3.8 g/dL (2.2-4.2); Glucose 326 mg/dL (74-106); Potassium 5.2 mmol/L (3.5-5.1); Protein, Total 6.5 g/dL (6.4-8.2); Sodium Level 131 mmol/L (136-145)
--- NOTE | 2020-11-17 07:22 | PCM.PN.INT ---
Subjective: Patient with continued decline overnight. Oxygenation continues to be an issue and patient had a fever as high as 38.8 ?F. Patient is tolerating tube feeds, but blood sugars have been elevated. Urine output has been decreasing. I was called this morning at approximately 4:45 AM secondary to persistent hypoxemia despite PEEP of 18. Chest x-ray and ABG were obtained. Ultimately, patient was transitioned to APRV mode of ventilation with improved oxygenation. Objective: Chest x-ray shows worsening bilateral infiltrates General: - - Intubated and sedated. RASS -2. Good vent synchrony on APRV HEENT: Atraumatic, PERRLA, EOMI, Normocephalic, - - Scleral injection Oral: Moist Mucosa, No Gingival or Mucosal Lesions/ Ulcerations Neck: Supple, No Nodes, Trachea Midline, - - Unable to assess JVD secondary to body habitus Lungs: No rhonchi, No wheeze, No rales, Diminished Cardiovascular: Regular rate, Regular Rhythm, Normal S1, Normal S2, No murmurs, No rub noted, No Gallop Abdomen: Bowel Sounds Present, Soft, Non Tender, Non-Distended, Obese Extremities: No clubbing, No cyanosis, Edema Skin: - - No change from previous Musculoskeletal: No Tenderness to Palpation of Joints or Extremities Lymphatic: No Cervical, Supraclavicular, or Inguinal Adenopathy Neurological: Cranial nerves II-XII grossly intact, Neuro grossly intact Psych/Mental Status: Flat Affect Vital Signs Temp Pulse Resp BP Pulse Ox 38.0 C H 84 25 H 100/57 L 85 11/17/20 06:00 11/17/20 06:24 11/17/20 06:24 11/17/20 06:00 11/17/20 06:00 Oxygen Flow Rate (L/min) 60 Oxygen Delivery Method Mechanical Ventilator Weight: 160.5 kg Body Mass Index (BMI) 42.7 Intake and Output for Last 24 Hours 11/15/20 11/16/20 11/17/20 23:59 23:59 23:59 Intake Total 2905.0 / 2905.0 2744.93 / 2831.53 771.65 / 771.65 Output Total 1600 / 1600 950 / 950 100 / 100 Balance 1305.0 / 1305.0 1794.93 / 1881.53 671.65 / 671.65 Labs (Last 48 Hours) 11/15/20 11/15/20 11/15/20 07:35 12:04 17:27 WBC RBC Hgb Hct MCV MCH MCHC RDW Std Deviation RDW Coeff of Keyonna Plt Count MPV Immature Gran % (Auto) Neut % (Auto) Lymph % (Auto) [place] % (Auto) Eos % (Auto) Baso % (Auto) Absolute Neuts (auto) Absolute Lymphs (auto) Nucleated RBC % Specimen Type Sample Site pH Bicarbonate Actual Total CO2 Base Excess O2 Saturation O2 % ABG pCO2 ABG pO2 Erick Test Respiration Rate O2 Delivery Device Vent Mode Tidal Volume POC PEEP Sodium Potassium Chloride Carbon Dioxide Anion Gap BUN Creatinine Estim Creat Clear Calc Est GFR (MDRD) Af Amer Est GFR (MDRD) Non-Af BUN/Creatinine Ratio Glucose Calcium Total Bilirubin AST ALT Alkaline Phosphatase Total Creatine Kinase Total Protein Albumin Globulin Albumin/Globulin Ratio Triglycerides POC Glucose 283 H 313 H 378 H 11/15/20 11/16/20 11/16/20 22:35 04:30 04:30 WBC 6.8 RBC 4.04 L Hgb 13.7 Hct 39.7 L MCV 98.3 H MCH 33.9 H MCHC 34.5 RDW Std Deviation 47.8 H RDW Coeff of Keyonna 13.2 Plt Count 129 L MPV 10.6 Immature Gran % (Auto) 0.600 Neut % (Auto) 72.4 H Lymph % (Auto) 18.4 L [place] % (Auto) 8.5 Eos % (Auto) 0.0 Baso % (Auto) 0.1 Absolute Neuts (auto) 4.9 Absolute Lymphs (auto) 1.26 Nucleated RBC % 0 Specimen Type Sample Site pH Bicarbonate Actual Total CO2 Base Excess O2 Saturation O2 % ABG pCO2 ABG pO2 Erick Test Respiration Rate O2 Delivery Device Vent Mode Tidal Volume POC PEEP Sodium 132 L Potassium 4.3 Chloride 101 Carbon Dioxide 27.0 Anion Gap 4 L BUN 20 H Creatinine 1.08 Estim Creat Clear Calc 81.49 Est GFR (MDRD) Af Amer 88 Est GFR (MDRD) Non-Af 72 BUN/Creatinine Ratio 18.5 Glucose 280 H Calcium 8.2 L Total Bilirubin 0.70 AST 48 H ALT 64 H Alkaline Phosphatase 65 Total Creatine Kinase Total Protein 6.9 Albumin 2.9 L Globulin 4.0 Albumin/Globulin Ratio 0.7 L Triglycerides POC Glucose 331 H 11/16/20 11/16/20 11/16/20 04:30 08:10 11:39 WBC RBC Hgb Hct MCV MCH MCHC RDW Std Deviation RDW Coeff of Keyonna Plt Count MPV Immature Gran % (Auto) Neut % (Auto) Lymph % (Auto) [place] % (Auto) Eos % (Auto) Baso % (Auto) Absolute Neuts (auto) Absolute Lymphs (auto) Nucleated RBC % Specimen Type ART Sample Site R Radial pH 7.45 Bicarbonate Actual 23.7 Total CO2 25 Base Excess 0 O2 Saturation 90 L O2 % 100 ABG pCO2 34.1 L ABG pO2 54 L Erick Test Positive Respiration Rate 14 O2 Delivery Device Adult Vent Vent Mode AC Tidal Volume 500 POC PEEP 10 Sodium Potassium Chloride Carbon Dioxide Anion Gap BUN Creatinine Estim Creat Clear Calc Est GFR (MDRD) Af Amer Est GFR (MDRD) Non-Af BUN/Creatinine Ratio Glucose Calcium Total Bilirubin AST ALT Alkaline Phosphatase Total Creatine Kinase 155 Total Protein Albumin Globulin Albumin/Globulin Ratio Triglycerides 117 POC Glucose 236 H 11/16/20 11/16/20 11/16/20 11:59 16:18 23:44 WBC RBC Hgb Hct MCV MCH MCHC RDW Std Deviation RDW Coeff of Keyonna Plt Count MPV Immature Gran % (Auto) Neut % (Auto) Lymph % (Auto) [place] % (Auto) Eos % (Auto) Baso % (Auto) Absolute Neuts (auto) Absolute Lymphs (auto) Nucleated RBC % Specimen Type Sample Site pH Bicarbonate Actual Total CO2 Base Excess O2 Saturation O2 % ABG pCO2 ABG pO2 Erick Test Respiration Rate O2 Delivery Device Vent Mode Tidal Volume POC PEEP Sodium Potassium Chloride Carbon Dioxide Anion Gap BUN Creatinine Estim Creat Clear Calc Est GFR (MDRD) Af Amer Est GFR (MDRD) Non-Af BUN/Creatinine Ratio Glucose Calcium Total Bilirubin AST ALT Alkaline Phosphatase Total Creatine Kinase Total Protein Albumin Globulin Albumin/Globulin Ratio Triglycerides POC Glucose 206 H 216 H 302 H 11/17/20 11/17/20 11/17/20 05:06 05:10 05:10 WBC 8.4 RBC 3.87 L Hgb 13.2 Hct 38.7 L MCV 100.0 H MCH 34.1 H MCHC 34.1 RDW Std Deviation 50.8 H RDW Coeff of Keyonna 13.8 Plt Count 140 L MPV 10.8 Immature Gran % (Auto) 0.500 Neut % (Auto) 82.7 H Lymph % (Auto) 8.3 L [place] % (Auto) 8.4 Eos % (Auto) 0.0 Baso % (Auto) 0.1 Absolute Neuts (auto) 7.0 Absolute Lymphs (auto) 0.70 L Nucleated RBC % 0 Specimen Type ART Sample Site R Brach pH 7.32 L Bicarbonate Actual 21.3 L Total CO2 23 Base Excess -5 L O2 Saturation 80 L O2 % 100 ABG pCO2 41.8 ABG pO2 48 L Erick Test Positive Respiration Rate 12 O2 Delivery Device Adult Vent Vent Mode AC Tidal Volume 500 POC PEEP 18 Sodium 131 L Potassium 5.2 H Chloride 99 Carbon Dioxide 24.0 Anion Gap 8 BUN 44 H Creatinine 2.83 H Estim Creat Clear Calc 31.10 Est GFR (MDRD) Af Amer 29 L Est GFR (MDRD) Non-Af 24 L BUN/Creatinine Ratio 15.5 Glucose 326 H Calcium 7.7 L Total Bilirubin 0.70 AST 75 H ALT 58 Alkaline Phosphatase 60 Total Creatine Kinase Total Protein 6.5 Albumin 2.7 L Globulin 3.8 Albumin/Globulin Ratio 0.7 L Triglycerides POC Glucose Microbiology 11/14/20 10:45 Blood Culture (Wb) - Anticubital Right Blood Culture - Preliminary No growth in 48 hours. 11/14/20 10:15 Blood Culture (Wb) - Anticubital Left Blood Culture - Preliminary No growth in 48 hours. Clinical Impression(s) from Imaging Studies Chest X-Ray 11/16/20 10:10 IMPRESSION: Progressive bilateral pulmonary infiltrates worse on the right side. Pneumonitis secondary to Covid should be ruled out. Electronically Signed: Zachary Mott MD at 10:42 EDT , Service support , Chest X-Ray 11/17/20 04:45 IMPRESSION: Stable support lines and tubes. Persistent diffuse pulmonary opacities. Electronically Signed: Lenny Merchant MD at 7:11 EDT Tel , Service support , Medical Necessity - Tobacco Use Smoking Status: Former smoker Assessment/Plan All Active Problems COVID-19 (Acute) Thrombocytopenia (Acute) Leukopenia (Acute) Transaminitis (Acute) Hyponatremia (Acute) RECOMMENDATIONS: 1. Continue with Decadron and remdesivir 2. Continue APRV ventilation. Wean oxygen as tolerated 3. Aggressive control of blood sugars 4. Discontinue Xarelto therapy. Possibly initiate Lovenox in 24 to 48 hours 5. Continue tube feeds. Initiate bowel regimen IMPRESSIONS: 1. Acute hypoxic respiratory failure secondary to ARDS secondary to COVID-19 pneumonia Patient high risk for progression of disease. Patient does have a history of PE in the past, but is on full dose anticoagulation. Patient with significant worsening of renal function over the last 24 hours. Patient transition to APRV with good response at this point. No pronation given abdominal obesity with possible restriction. Diuretics as tolerated, but currently with acute renal failure so these will be held. 2. Acute kidney injury Patient has had some decreased blood pressure and oxygenation issues over the last 24 hours. Oxygenation has been improved with change in mode of ventilation. Cannot exclude the need for pressors. Acuna placed for monitoring urine output. No indication for renal replacement therapy at this time, but may need to involve nephrology if not improving with these measures. Hold antihypertensives for now 3. Diabetes mellitus without insulin requirements Patient does not require insulin at baseline, but given Decadron therapy, highly suspicious that supplemental insulin will be required. Agree with initiation of Lantus and titration as necessary with sliding scale coverage 4. Morbid obesity/YASMIN/hypertension/hyperlipidemia Complicates care, management, recovery and prognosis. Did offer to use patient's home machine for comfort to allow for compliance with YASMIN therapy. 5. CODE STATUS Patient states he was willing to be intubated and tracheostomy placed prior to initiation of mechanical ventilation. Patient did state that if his heart were to stop he would not want to be brought back because he would be too far gone. Patient was not under the influence of any altering medications at the time of this conversation. TIME: 40 minutes critical care time spent addressing patient's acute hypoxic respiratory failure, diabetes mellitus, hypertension, YASMIN, review of all data and collaboration with care team (6:15 AM to 7:30 AM) [id number]: [id number] Critical care first hour
[2020-11-17 07:41] LABS: Bedside Glucose 311 mg/dL (70-110)
[2020-11-17] MEDS: Propofol 10MG/Ml 1,000 MG/100 ML Bottle 33.5 MG CONT INF ×6 (09:15→21:00)
--- NOTE | 2020-11-17 10:01 | CASEMGMT ---
JOANNE MORALES NOTE: JOANNE MORALES participated in ICU rounds. Patient remains intubated, on vent with FiO2 @ 95%. CM/SW will continue to follow. Agnes BSN JOANNE MORALES
[2020-11-17] MEDS: Aspirin 81 MG TAB.CHEW GT (11:14)
[2020-11-17] MEDS: dexAMETHasone 4 MG Tablet 6 MG GT (11:14)
[2020-11-17] MEDS: Acetaminophen 650 MG/20 ML UDC NG (11:15)
[2020-11-17 11:16] LABS: Bedside Glucose 268 mg/dL (70-110)
[2020-11-17] MEDS: Lansoprazole 15 MG Capsule.DR 30 MG GT (11:17)
[2020-11-17] MEDS: Chlorhexidine 15 ML PO ×2 (11:18→20:37)
[2020-11-17] MEDS: Insulin Lispro 100 UNIT/ML INSULN.PEN 15 UNIT SC ×2 (11:19→17:10)
[2020-11-17] MEDS: 0.9% Saline Lock 10 ML Syringe IV ×3 (11:27→20:49)
--- NOTE | 2020-11-17 11:56 | CASEMGMT ---
Social Work SW participated in interdisciplinary rounds with Pt Betzy on phone. After rounds SW placed call to Betzy and offered support. Betzy appreciative of phone call and talking openly about pt. Betzy states her children, grandchildren and siblings are supportive of her. Betzy stating she feels much better after rounds and is grateful for this phone call. SW made Betzy aware that SW will remain available if needed for support. VIKKI Mendez
--- NOTE | 2020-11-17 14:50 | PN_ITS ---
Patient Problems: Active and Suspected Problems COVID-19 (Acute) Thrombocytopenia (Acute) Leukopenia (Acute) Transaminitis (Acute) Hyponatremia (Acute) Subjective: Patient is intubated and sedated. Has had some intermittent hypotension. He had significant oxygen desaturations and required vent changes to bilevel ventilation which improved his respiratory mechanics. Oxygenation has improved and sats are now 95 to 97% on 85% FiO2. Vitals/I&O's: Vital Signs Temp Pulse Resp BP Pulse Ox 100.8 F H 78 17 102/56 L 95 11/17/20 12:00 11/17/20 14:00 11/17/20 14:00 11/17/20 14:00 11/17/20 14:00 Oxygen Flow Rate (L/min) 60 Oxygen Delivery Method Mechanical Ventilator Weight: 160.5 kg Body Mass Index (BMI) 42.7 Intake and Output for Last 24 Hours 11/15/20 11/16/20 11/17/20 23:59 23:59 23:59 Intake Total 2905.0 / 2905.0 2744.93 / 2831.53 1853.01 / 1853.01 Output Total 1600 / 1600 950 / 950 110 / 110 Balance 1305.0 / 1305.0 1794.93 / 1881.53 1743.01 / 1743.01 General: - - Intubated and sedated HEENT: Atraumatic, PERRLA, EOMI, Normocephalic, EAC Clear Oral: Moist Mucosa, - - ET tube in place Neck: Supple, Trachea Midline Lungs: No rhonchi, No wheeze, No rales, Diminished Cardiovascular: Regular rate, Regular Rhythm, Normal S1, No murmurs, No Ectopic Activity, No rub noted, No Gallop Abdomen: Bowel Sounds Present, Soft, Non Tender, Obese Extremities: No clubbing, No cyanosis, No edema, Capillary Refill Less than 3 Seconds, Peripheral Pulses Normal Skin: No rashes, No breakdown Microbiology Past 72 Hours 11/17/20 11:45 Sputum, Induced/Lukens Gram Stain - Final 11/14/20 10:45 Blood Culture (Wb) - Anticubital Right Blood Culture - Preliminary No growth in 48 hours. 11/14/20 10:15 Blood Culture (Wb) - Anticubital Left Blood Culture - Preliminary No growth in 48 hours. 11/14/20 10:20 Nasal Secretion SARS-CoV-2 Antigen (Rapid) - Final SARS-CoV-2 (COVID 19) Laboratory Results 11/16/20 16:18: POC Glucose 216 H 11/16/20 23:44: POC Glucose 302 H 11/17/20 04:54: POC Glucose 311 H 11/17/20 05:06: Specimen Type ART, Sample Site R Brach, pH 7.32 L, Bicarbonate Actual 21.3 L, Total CO2 23, Base Excess -5 L, O2 Saturation 80 L, O2 % 100, ABG pCO2 41.8, ABG pO2 48 L, Erick Test Positive, Respiration Rate 12, O2 Delivery Device Adult Vent, Vent Mode AC, Tidal Volume 500, POC PEEP 18 11/17/20 05:10: WBC 8.4, RBC 3.87 L, Hgb 13.2, Hct 38.7 L, MCV 100.0 H, MCH 34.1 H, MCHC 34.1, RDW Std Deviation 50.8 H, RDW Coeff of Keyonna 13.8, Plt Count 140 L, MPV 10.8, Immature Gran % (Auto) 0.500, Neut % (Auto) 82.7 H, Lymph % (Auto) 8.3 L, Nicholas % (Auto) 8.4, Eos % (Auto) 0.0, Baso % (Auto) 0.1, Absolute Neuts (auto) 7.0, Absolute Lymphs (auto) 0.70 L, Nucleated RBC % 0 11/17/20 05:10: Sodium 131 L, Potassium 5.2 H, Chloride 99, Carbon Dioxide 24.0, Anion Gap 8, BUN 44 H, Creatinine 2.83 H, Estim Creat Clear Calc 31.10, Est GFR (MDRD) Af Amer 29 L, Est GFR (MDRD) Non-Af 24 L, BUN/Creatinine Ratio 15.5, Glucose 326 H, Calcium 7.7 L, Total Bilirubin 0.70, AST 75 H, ALT 58, Alkaline Phosphatase 60, Total Protein 6.5, Albumin 2.7 L, Globulin 3.8, Albumin/Globulin Ratio 0.7 L 11/17/20 11:09: POC Glucose 268 H Current Medications Acetaminophen (Acetaminophen 650 Mg/20 Ml Udc) 650 mg NG Q6H PRN PRN PRN Reason: Pain Score 1-10/Temp > 100.7 F Last Admin: 11/17/20 11:15 Dose: 650 mg Documented by: Al Hydroxide/Mg Hydroxide (Mag Hydrox/Al Hydrox/Simeth 30 Ml Udc) 30 ml GT Q6H PRN PRN PRN Reason: Gastric Burning Albuterol/Ipratropium (Ipratropium/Albuterol Sulfate 3 Ml Ampul.Neb) 3 ml INHALATION Q6HWA.RT [facility] Last Admin: 11/17/20 13:50 Dose: 3 ml Documented by: Aspirin (Aspirin 81 Mg Tab.Chew) 81 mg GT DAILY@0800 [facility] Last Admin: 11/17/20 11:14 Dose: 81 mg Documented by: Atorvastatin Calcium (Atorvastatin Calcium 20 Mg Tablet) 20 mg GT 1700 [facility] Chlorhexidine Gluconate (Chlorhexidine 15 Ml) 15 ml PO BID [facility] Last Admin: 11/17/20 11:18 Dose: 15 ml Documented by: Dexamethasone (Dexamethasone 4 Mg Tablet) 6 mg GT DAILY [facility] Stop: 11/23/20 10:01 Last Admin: 11/17/20 11:14 Dose: 6 mg Documented by: Dextrose (Dextrose 50%-Water 25 Gm/50 Ml Disp.Syrin) 0 gm IV X1 PRN; Protocol PRN Reason: Hypoglycemia Glucagon (Glucagon 1 Mg/Ml Syringe) 1 mg IM .X1 PRN PRN Reason: Hypoglycemia Guaifenesin (Guaifenesin 10 Ml Udc (200mg/10ml)) 10 ml GT Q6 [facility] Last Admin: 11/17/20 11:17 Dose: 10 ml Documented by: Hydralazine HCl (Hydralazine 20 Mg/Ml Vial) 10 mg IV Q6H PRN PRN PRN Reason: SBP>160 Remdesivir 100 mg/ Sodium (Chloride) 250 mls @ 125 mls/hr IV DAILY [facility]; Protocol Stop: 11/18/20 11:59 Last Infusion: 11/17/20 13:18 Dose: Infused Documented by: Propofol (Diprivan) 1,000 mg in 100 mls @ 9.57 mls/hr CONT INF .[id number] [facility]; Protocol Last Admin: 11/17/20 13:15 Dose: 35 mcg/kg/min, 33.5 mls/hr Documented by: Fentanyl Citrate 1,000 mcg/ (Sodium Chloride) 100 mls @ 5 mls/hr CONT INF .Q20H [facility]; Protocol Last Titration: 11/17/20 13:30 Dose: 100 mcg/hr, 10 mls/hr Documented by: Enteral Nutritional Formula (Vital High Protein) 1,000 mls @ 80 mls/hr GT .[id number] [facility] Last Admin: 11/17/20 03:50 Dose: Not Given Documented by: Insulin Glargine (Insulin Glargine 100 Units/Ml Pen) 30 units SC BID@0000,1200 [facility] Last Admin: 11/17/20 11:20 Dose: 30 u Documented by: Insulin Human Lispro (Insulin Lispro 100 Unit/Ml Insuln.Pen) 0 unit SC Q6H [facility]; Protocol Last Admin: 11/17/20 11:19 Dose: 9 u Documented by: Insulin Human Lispro (Insulin Lispro 100 Unit/Ml Insuln.Pen) 15 unit SC Q6 [facility] Last Admin: 11/17/20 11:19 Dose: 15 u Documented by: Lansoprazole (Lansoprazole 15 Mg Capsule.Dr) 30 mg GT DAILY [facility] Last Admin: 11/17/20 11:17 Dose: 30 mg Documented by: Ondansetron HCl (Ondansetron 4 Mg/2 Ml Vial) 4 mg IV Q8H PRN PRN PRN Reason: NAUSEA/VOMITING Senna/Docusate Sodium (Senna/Docusate Sodium 1 Tablet) 2 tablet GT BID PRN PRN PRN Reason: Constipation Sodium Chloride (0.9% Saline Lock 10 Ml Syringe) 10 - 40 ml IV UD PRN PRN Reason: SALINE FLUSH Last Admin: 11/17/20 11:27 Dose: 20 ml Documented by: STROKE Vital Signs/Narrative: Vital Signs Temp Pulse Resp BP BP Pulse Ox 11/17/20 14:00 78 17 102/56 L 95 11/17/20 13:50 74 25 H 95 11/17/20 13:00 75 16 83/56 L 97 11/17/20 12:00 100.8 F H 78 18 101/87 H 94 11/17/20 11:35 79 25 H 96 11/17/20 11:00 100.9 F H 81 19 H 99/58 L 96 Medical Necessity - Tobacco Use Smoking Status: Former smoker Assessment/Plan All Active Problems COVID-19 (Acute) Thrombocytopenia (Acute) Leukopenia (Acute) Transaminitis (Acute) Hyponatremia (Acute) Acute hypoxic respiratory failure secondary to COVID-19 pneumonia -Pt CXR with patchy B infiltrates -Patient has decompensated further to the point of requiring endotracheal intubation which was performed this morning -Currently on bilevel ventilation with an FiO2 of 85%--> SPO2 at this time is 95 to 97% -And oxygen as able -Continue remdesivir Day 11/06 -Decadron 6 mg daily--> day 11/11 -ABG reviewed--> mild metabolic acidosis present with a pH of 7.32 -The ventilator has been adjusted for compensation from a respiratory standpoint -Continue to follow kidney injury which is most likely the cause for the acidosis -Blood cultures are negative at 48 hours -Pulmonary following Transaminitis -Almost resolved -ALT is normalized and only mild AST elevation WOO -Most likely related to Covid -No current dialysis needs yet but patient may require this in the future -Continue to keep MAP greater than 65 -Avoid nephrotoxins -Repeat BMP in a.m. Intermittent hypotension -Monitor for pressor needs -PICC line placement Non-anion gap metabolic acidosis -Most likely cause is renal failure -Continue to monitor -May need bicarb Mild hyperkalemia -Suspect related to kidney injury and acidosis with extracellular shifts -Emir BMP in a.m. Leukopenia/thrombocytopenia -Leukopenia has resolved and thrombocytopenia has improved -Continue to monitor -Related to Covid Hyponatremia -Likely related to Covid -Remains stable at 131 -Continue to monitor -May drop further with new kidney injury DM-2 -Patient is on Trulicity, Metformin, and glimepiride at home -Hold all home medications at this time -Blood sugars remain markedly elevated but improved since yesterday -Lantus increased to 30 units he ID -Increase short acting insulin to 15 units every 6 hours -Goal blood sugars are 140-180 - continue every 6 hour blood sugars Hypertension -Hold antihypertensives -Blood pressure has normalized and is on the lower side at times Hyperlipidemia -Continue statin History of coronary disease -Continue aspirin 81 mg nightly YASMIN -BiPAP at at bedtime History of pulmonary embolism -Continue Xarelto 20 mg daily Morbid obesity -BMI 42.6 -Complicates overall treatment, outcomes and prognosis History of tobacco abuse -Quit approximately 20 years ago -Suspect possible baseline COPD and will need outpatient PFTs after his acute infection has resolved DVT/GI prophylaxis -Continue NOAC -Protonix 40 mg daily CODE STATUS -Per discussion with patient with his present in the emergency department patient does not want to be resuscitated but would want short-term intubation Inpatient E&M: 74452 Subs Hosp L2
[2020-11-17] MEDS: Atorvastatin Calcium 20 MG Tablet GT (16:41)
[2020-11-17] MEDS: Vital High Protein 1,000 ML 80 ML GT (16:41)
[2020-11-17 17:20] LABS: Bedside Glucose 318 mg/dL (70-110)
[2020-11-18] VITALS (36 sets, daily range): BP systolic 73–120; BP diastolic 48–95; PULSE 76–120; RESP 20–50; TEMP 37.9–39.3; O2SAT 88–100
[2020-11-18] MEDS: Propofol 10MG/Ml 1,000 MG/100 ML Bottle 38.3 MG CONT INF
[2020-11-18] MEDS: Insulin Lispro 100 UNIT/ML INSULN.PEN SC ×4 (00:17→16:56)
[2020-11-18] MEDS: Insulin Lispro 100 UNIT/ML INSULN.PEN 15 UNIT SC (00:19)
[2020-11-18] MEDS: guaiFENesin 10 ML UDC (200MG/10ML) GT ×4 (00:23→21:23)
--- NOTE | 2020-11-18 00:37 | PCM.PN.BLA ---
Progress Note Reportedly patient with patricia colored tube feeding. Stop tube feeding. Get gastric occult blood. Stop aspirin. Start H&H. Protonix 40 mg IV twice daily ordered. STROKE Vital Signs/Narrative: Vital Signs Temp Pulse Resp BP Pulse Ox 11/17/20 23:00 99.8 F H 77 19 H 119/55 L 94 11/17/20 22:58 77 27 H 95 11/17/20 22:00 99.7 F H 75 20 H 100/52 L 94 11/17/20 21:00 99.8 F H 82 22 H 106/61 92
[2020-11-18 00:44] LABS: Hematocrit 35.4 % (40-54)
[2020-11-18 01:00] LABS: Bedside Glucose 389 mg/dL (70-110)
--- NOTE | 2020-11-18 01:38 | NURSING ---
While checking residuals on pt during the last assessment, noticed dark patricia colored contents, in the amount of >250 cc. Put tube feed on hold, and connected OGT to [facility]. Dr. Thorne was made aware. Order for protonix was received, along with order for STAT H&H and Gastric content for occult blood.
[2020-11-18] MEDS: Propofol 10MG/Ml 1,000 MG/100 ML Bottle 43.1 MG CONT INF (02:37)
[2020-11-18] MEDS: Acetaminophen 650 MG/20 ML UDC NG ×2 (03:29→10:42)
[2020-11-18 04:33] LABS: Absolute Lymphocyte Count 0.71 X10^3/uL (0.83-4.51); Absolute Neutrophil Count 8.9 X10^3/uL (2.0-7.7); Basophil# 0.01 X10^3/uL; Basophil% 0.1 % (0-1); Hematocrit 35.5 % (40-54); Lymphocyte # 0.71 X10^3/ul (0.83-4.51); Lymphocyte % 6.8 % (19-41); Mean Corp Hgb Conc 33.8 g/dL (32-36); Mean Corpuscular Hgb 33.1 pg (27.0-32.0); Mean Corpuscular Volume 98.1 fL (80-94); Mean Platelet Vol. 11.2 fl (6.2-12.0); Monocyte# 0.76 X10^3/uL; Monocyte% 7.3 % (0-10); NRBC Flagged by Analyzer 0 % (0-5); Neutrophil # 8.86 X10^3/uL (2.7-7.7); Neutrophil % 85.1 % (47-70); Platelet Count 167 K/mm3 (150-450); RBC Distribution Width CV 13.9 % (11.6-14.6); RBC Distribution Width SD 50.4 fl (35.1-43.9); Red Blood Count 3.62 M/mm3 (4.6-6.2); White Blood Count 10.4 K/mm3 (4.4-11.0)
[2020-11-18 04:53] LABS: ALB/GLOB Ratio 0.6 RATIO (0.9-2.4); AST(SGOT) 40 U/L (15-37); Alanine Aminotransfer ALT/SGPT 49 U/L (16-61); Albumin, Serum 2.5 g/dL (3.2-5.0); Alkaline Phosphatase 70 U/L (45-117); Anion Gap 11 (5-15); BUN 76 mg/dL (7-18); BUN/Creat Ratio 14.1 RATIO (10-20); Calcium,Total 7.5 mg/dL (8.5-10.1); Chloride 97 mmol/L (98-107); EST Glomerular Filtration Rate 11 mL/min (>60); Est Glom Filt Rate - Afr Amer 14 mL/min (>60); Globulin 3.9 g/dL (2.2-4.2); Glucose 316 mg/dL (74-106); Protein, Total 6.4 g/dL (6.4-8.2); Sodium Level 128 mmol/L (136-145)
[2020-11-18] MEDS: Propofol 10MG/Ml 1,000 MG/100 ML Bottle 14.6 MG CONT INF (05:04)
[2020-11-18 05:31] LABS: Base Excess -8 mmol/L (-2 to +2); Bicarbonate 17.7 mmol/L (22-26); Blood Gas Specimen Type ART; FI02 55; Mode BiLevel; O2 Delivery Device Adult Vent; PO2 75 mmHG (75-100); RR 12; SITE R Radial; SO2 94 % (95-99); Total Carbon Dioxide 19 mmol/L; pCO2 34.4 mmHg (35-45); pH 7.32 (7.35-7.45)
[2020-11-18] MEDS: TITRATION PARAMETER CHANGE 1 EACH IV (05:35)
[2020-11-18] MEDS: Propofol 10MG/Ml 1,000 MG/100 ML Bottle 19.4 MG CONT INF (07:16)
[2020-11-18] MEDS: Ipratropium/Albuterol Sulfate 3 ML AMPUL.NEB INHALATION ×3 (07:25→19:33)
--- NOTE | 2020-11-18 08:34 | PN_ITS ---
Subjective: Patient did okay overnight from a hemodynamic standpoint and oxygenation requirements have decreased. However, patient was noted to have increased residuals that were Gastroccult positive. Patient is also had worsening in his renal failure with decreased urine output that has high sediment. Patient is also been agitated requiring initiation of Precedex. General: - - Intubated and sedated. RASS -2. Spontaneous movement noted of arms and legs, but not following commands HEENT: Atraumatic, PERRLA, EOMI, Normocephalic Oral: Moist Mucosa, No Gingival or Mucosal Lesions/ Ulcerations Neck: Supple, No Nodes, Trachea Midline Lungs: No wheeze, No rales, Diminished, Rhonchi - Bilateral, - - Symmetric expansion Cardiovascular: Regular rate, Regular Rhythm, Normal S1, Normal S2, No murmurs, No rub noted, No Gallop Abdomen: Bowel Sounds Present, Soft, Non Tender, Distended, Obese Extremities: No clubbing, No cyanosis, Edema Skin: No rashes, No breakdown Musculoskeletal: No Tenderness to Palpation of Joints or Extremities Lymphatic: No Cervical, Supraclavicular, or Inguinal Adenopathy Neurological: Cranial nerves II-XII grossly intact, Neuro grossly intact Psych/Mental Status: Impulsive, Restless Vital Signs Temp Pulse Resp BP Pulse Ox 38.8 C H 83 34 H 95/51 L 93 11/18/20 07:00 11/18/20 07:25 11/18/20 07:25 11/18/20 07:00 11/18/20 07:00 Oxygen Flow Rate (L/min) 60 Oxygen Delivery Method Mechanical Ventilator Weight: 161.8 kg Body Mass Index (BMI) 42.7 Intake and Output for Last 24 Hours 11/16/20 11/17/20 11/18/20 23:59 23:59 23:59 Intake Total 2744.93 / 2831.53 3053.14 / 3421.14 849.15 / 849.15 Output Total 950 / 950 148 / 153 155 / 155 Balance 1794.93 / 1881.53 2905.14 / 3268.14 694.15 / 694.15 Labs (Last 48 Hours) 11/16/20 11/16/20 11/16/20 04:30 11:39 11:59 WBC RBC Hgb Hct MCV MCH MCHC RDW Std Deviation RDW Coeff of Keyonna Plt Count MPV Immature Gran % (Auto) Neut % (Auto) Lymph % (Auto) Kendall % (Auto) Eos % (Auto) Baso % (Auto) Absolute Neuts (auto) Absolute Lymphs (auto) Nucleated RBC % Specimen Type ART Sample Site R Radial pH 7.45 Bicarbonate Actual 23.7 Total CO2 25 Base Excess 0 O2 Saturation 90 L O2 % 100 ABG pCO2 34.1 L ABG pO2 54 L Erick Test Positive Respiration Rate 14 O2 Delivery Device Adult Vent Vent Mode AC Tidal Volume 500 POC PEEP 10 Sodium Potassium Chloride Carbon Dioxide Anion Gap BUN Creatinine Estim Creat Clear Calc Est GFR (MDRD) Af Amer Est GFR (MDRD) Non-Af BUN/Creatinine Ratio Glucose Calcium Total Bilirubin AST ALT Alkaline Phosphatase Total Creatine Kinase 155 Total Protein Albumin Globulin Albumin/Globulin Ratio Triglycerides 117 POC Glucose 206 H 11/16/20 11/16/20 11/17/20 16:18 23:44 04:54 WBC RBC Hgb Hct MCV MCH MCHC RDW Std Deviation RDW Coeff of Keyonna Plt Count MPV Immature Gran % (Auto) Neut % (Auto) Lymph % (Auto) Kendall % (Auto) Eos % (Auto) Baso % (Auto) Absolute Neuts (auto) Absolute Lymphs (auto) Nucleated RBC % Specimen Type Sample Site pH Bicarbonate Actual Total CO2 Base Excess O2 Saturation O2 % ABG pCO2 ABG pO2 Erick Test Respiration Rate O2 Delivery Device Vent Mode Tidal Volume POC PEEP Sodium Potassium Chloride Carbon Dioxide Anion Gap BUN Creatinine Estim Creat Clear Calc Est GFR (MDRD) Af Amer Est GFR (MDRD) Non-Af BUN/Creatinine Ratio Glucose Calcium Total Bilirubin AST ALT Alkaline Phosphatase Total Creatine Kinase Total Protein Albumin Globulin Albumin/Globulin Ratio Triglycerides POC Glucose 216 H 302 H 311 H 11/17/20 11/17/20 11/17/20 05:06 05:10 05:10 WBC 8.4 RBC 3.87 L Hgb 13.2 Hct 38.7 L MCV 100.0 H MCH 34.1 H MCHC 34.1 RDW Std Deviation 50.8 H RDW Coeff of Keyonna 13.8 Plt Count 140 L MPV 10.8 Immature Gran % (Auto) 0.500 Neut % (Auto) 82.7 H Lymph % (Auto) 8.3 L Kendall % (Auto) 8.4 Eos % (Auto) 0.0 Baso % (Auto) 0.1 Absolute Neuts (auto) 7.0 Absolute Lymphs (auto) 0.70 L Nucleated RBC % 0 Specimen Type ART Sample Site R Brach pH 7.32 L Bicarbonate Actual 21.3 L Total CO2 23 Base Excess -5 L O2 Saturation 80 L O2 % 100 ABG pCO2 41.8 ABG pO2 48 L Erick Test Positive Respiration Rate 12 O2 Delivery Device Adult Vent Vent Mode AC Tidal Volume 500 POC PEEP 18 Sodium 131 L Potassium 5.2 H Chloride 99 Carbon Dioxide 24.0 Anion Gap 8 BUN 44 H Creatinine 2.83 H Estim Creat Clear Calc 31.10 Est GFR (MDRD) Af Amer 29 L Est GFR (MDRD) Non-Af 24 L BUN/Creatinine Ratio 15.5 Glucose 326 H Calcium 7.7 L Total Bilirubin 0.70 AST 75 H ALT 58 Alkaline Phosphatase 60 Total Creatine Kinase Total Protein 6.5 Albumin 2.7 L Globulin 3.8 Albumin/Globulin Ratio 0.7 L Triglycerides POC Glucose 11/17/20 11/17/20 11/18/20 11:09 16:37 00:16 WBC RBC Hgb Hct MCV MCH MCHC RDW Std Deviation RDW Coeff of Keyonna Plt Count MPV Immature Gran % (Auto) Neut % (Auto) Lymph % (Auto) Kendall % (Auto) Eos % (Auto) Baso % (Auto) Absolute Neuts (auto) Absolute Lymphs (auto) Nucleated RBC % Specimen Type Sample Site pH Bicarbonate Actual Total CO2 Base Excess O2 Saturation O2 % ABG pCO2 ABG pO2 Erick Test Respiration Rate O2 Delivery Device Vent Mode Tidal Volume POC PEEP Sodium Potassium Chloride Carbon Dioxide Anion Gap BUN Creatinine Estim Creat Clear Calc Est GFR (MDRD) Af Amer Est GFR (MDRD) Non-Af BUN/Creatinine Ratio Glucose Calcium Total Bilirubin AST ALT Alkaline Phosphatase Total Creatine Kinase Total Protein Albumin Globulin Albumin/Globulin Ratio Triglycerides POC Glucose 268 H 318 H 389 H 11/18/20 11/18/20 11/18/20 00:40 04:05 04:05 WBC 10.4 RBC 3.62 L Hgb 12.0 L 12.0 L Hct 35.4 L 35.5 L MCV 98.1 H MCH 33.1 H MCHC 33.8 RDW Std Deviation 50.4 H RDW Coeff of Keyonna 13.9 Plt Count 167 MPV 11.2 Immature Gran % (Auto) 0.700 Neut % (Auto) 85.1 H Lymph % (Auto) 6.8 L Kendall % (Auto) 7.3 Eos % (Auto) 0.0 Baso % (Auto) 0.1 Absolute Neuts (auto) 8.9 H Absolute Lymphs (auto) 0.71 L Nucleated RBC % 0 Specimen Type Sample Site pH Bicarbonate Actual Total CO2 Base Excess O2 Saturation O2 % ABG pCO2 ABG pO2 Erick Test Respiration Rate O2 Delivery Device Vent Mode Tidal Volume POC PEEP Sodium 128 L Potassium 5.0 Chloride 97 L Carbon Dioxide 20.0 L Anion Gap 11 BUN 76 H Creatinine 5.40 H Estim Creat Clear Calc 16.30 Est GFR (MDRD) Af Amer 14 L Est GFR (MDRD) Non-Af 11 L BUN/Creatinine Ratio 14.1 Glucose 316 H Calcium 7.5 L Total Bilirubin 0.80 AST 40 H ALT 49 Alkaline Phosphatase 70 Total Creatine Kinase Total Protein 6.4 Albumin 2.5 L Globulin 3.9 Albumin/Globulin Ratio 0.6 L Triglycerides POC Glucose 11/18/20 05:24 WBC RBC Hgb Hct MCV MCH MCHC RDW Std Deviation RDW Coeff of Keyonna Plt Count MPV Immature Gran % (Auto) Neut % (Auto) Lymph % (Auto) Kendall % (Auto) Eos % (Auto) Baso % (Auto) Absolute Neuts (auto) Absolute Lymphs (auto) Nucleated RBC % Specimen Type ART Sample Site R Radial pH 7.32 L Bicarbonate Actual 17.7 L Total CO2 19 Base Excess -8 L O2 Saturation 94 L O2 % 55 ABG pCO2 34.4 L ABG pO2 75 Erick Test Respiration Rate 12 O2 Delivery Device Adult Vent Vent Mode BiLevel Tidal Volume POC PEEP Sodium Potassium Chloride Carbon Dioxide Anion Gap BUN Creatinine Estim Creat Clear Calc Est GFR (MDRD) Af Amer Est GFR (MDRD) Non-Af BUN/Creatinine Ratio Glucose Calcium Total Bilirubin AST ALT Alkaline Phosphatase Total Creatine Kinase Total Protein Albumin Globulin Albumin/Globulin Ratio Triglycerides POC Glucose Microbiology 11/18/20 00:40 Gastric Fluid/Contents Gastric Occult Blood - Final Occult Blood Positive 11/17/20 11:45 Sputum, Induced/Lukens Gram Stain - Final 11/14/20 10:45 Blood Culture (Wb) - Anticubital Right Blood Culture - Preliminary No growth in 48 hours. 11/14/20 10:15 Blood Culture (Wb) - Anticubital Left Blood Culture - Preliminary No growth in 48 hours. Medical Necessity - Tobacco Use Smoking Status: Former smoker Assessment/Plan All Active Problems COVID-19 (Acute) Thrombocytopenia (Acute) Leukopenia (Acute) Transaminitis (Acute) Hyponatremia (Acute) RECOMMENDATIONS: 1. Continue with Decadron and remdesivir 2. Continue APRV ventilation. Wean oxygen as tolerated. Possibly wean P high if able to tolerate 40% FiO2 3. Aggressive control of blood sugars 4. Consult nephrology. Place hemodialysis line 5. Continue Protonix drip for now, but likely transition to Protonix twice daily tomorrow IMPRESSIONS: 1. Acute hypoxic respiratory failure secondary to ARDS secondary to COVID-19 pneumonia Patient with rapid progression of disease. Patient does have a history of PE in the past, but is on full dose anticoagulation. Patient with significant worsening of renal function over the last 24 hours. Patient appears to be tolerating transition to APRV. Continue to wean FiO2 as tolerated. If able to tolerate 40 to 50% FiO2, could consider decreasing P high. No spontaneous breathing trials at this time. Patient has been very difficult to sedate. Will add Ativan as needed to see if Precedex can be discontinued. 2. Acute kidney injury Patient continues to deteriorate from a renal perspective. We will consult renal today, but high clinical suspicion that dialysis will be necessary. Temporary dialysis line will be placed. 3. Diabetes mellitus without insulin requirements Patient does not require insulin at baseline, but given Decadron therapy, highly suspicious that supplemental insulin will be required. Agree with initiation of Lantus and titration as necessary with sliding scale coverage. We will hold Lantus at current dosing given patient's intermittent tube feed. 4. Morbid obesity/YASMIN/hypertension/hyperlipidemia Complicates care, management, recovery and prognosis. Did offer to use homa morfin's home machine for comfort to allow for compliance with YASMIN therapy. 5. CODE STATUS Patient states he was willing to be intubated and tracheostomy placed prior to initiation of mechanical ventilation. Patient did state that if his heart were to stop he would not want to be brought back because he would be too far gone. Patient was not under the influence of any altering medications at the time of this conversation. TIME: 35 minutes critical care time spent addressing patient's acute hypoxic respiratory failure, diabetes mellitus, hypertension, YASMIN, review of all data and collaboration with care team (7 AM to 8 AM) 9xxxx: [id number] Critical care first hour
--- NOTE | 2020-11-18 10:17 | PN_ITS ---
Patient Problems: Active and Suspected Problems COVID-19 (Acute) Thrombocytopenia (Acute) Leukopenia (Acute) Transaminitis (Acute) Hyponatremia (Acute) Subjective: Patient remains intubated and sedated. We have been able to wean oxygen and now is 55% improved oxygen saturations. He had some [id number] material out of his OG and his tube feeds are on hold to low intermittent suction. His urine output has also decreased significantly. Vitals/I&O's: Vital Signs Temp Pulse Resp BP Pulse Ox 101.8 F H 83 34 H 95/51 L 93 11/18/20 07:00 11/18/20 07:25 11/18/20 07:25 11/18/20 07:00 11/18/20 07:00 Oxygen Flow Rate (L/min) 60 Oxygen Delivery Method Mechanical Ventilator Weight: 161.8 kg Body Mass Index (BMI) 42.7 Intake and Output for Last 24 Hours 11/16/20 11/17/20 11/18/20 23:59 23:59 23:59 Intake Total 2744.93 / 2831.53 3053.14 / 3421.14 867.48 / 867.48 Output Total 950 / 950 148 / 153 155 / 155 Balance 1794.93 / 1881.53 2905.14 / 3268.14 712.48 / 712.48 General: - - Patient is intubated and sedated HEENT: Atraumatic, PERRLA, EOMI, Normocephalic, EAC Clear Oral: Moist Mucosa, No Gingival or Mucosal Lesions/ Ulcerations, - - OG tube in place with dark coffee-ground appearing material being removed from stomach, ET tube in place Neck: Supple, Trachea Midline, - - Short thick neck Lungs: No rhonchi, No wheeze, No rales, Diminished Cardiovascular: Regular rate, Regular Rhythm, Normal S1, Normal S2, No murmurs, No Ectopic Activity, No rub noted, No Gallop Abdomen: Bowel Sounds Present, Soft, Non Tender, Non-Distended, Obese Extremities: No clubbing, No cyanosis, Edema - Trace bilateral lower extremity edema Skin: No rashes, No breakdown Musculoskeletal: No Muscle Wasting Lymphatic: No Cervical, Supraclavicular, or Inguinal Adenopathy Neurological: Deep Tendon Reflexes 2+/4 and Symmetrical, - - Unable to fully examine secondary to patient being intubated and sedated, appears to move bilateral upper and lower extremities symmetrically without limitation Psych/Mental Status: - - Unable to assess Microbiology Past 72 Hours 11/18/20 00:40 Gastric Fluid/Contents Gastric Occult Blood - Final Occult Blood Positive 11/17/20 11:45 Sputum, Induced/Lukens Gram Stain - Final 11/14/20 10:45 Blood Culture (Wb) - Anticubital Right Blood Culture - Preliminary No growth in 48 hours. 11/14/20 10:15 Blood Culture (Wb) - Anticubital Left Blood Culture - Preliminary No growth in 48 hours. Laboratory Results 11/17/20 11:09: POC Glucose 268 H 11/17/20 16:37: POC Glucose 318 H 11/18/20 00:16: POC Glucose 389 H 11/18/20 00:40: Hgb 12.0 L, Hct 35.4 L 11/18/20 04:05: WBC 10.4, RBC 3.62 L, Hgb 12.0 L, Hct 35.5 L, MCV 98.1 H, MCH 33.1 H, MCHC 33.8, RDW Std Deviation 50.4 H, RDW Coeff of Keyonna 13.9, Plt Count 167, MPV 11.2, Immature Gran % (Auto) 0.700, Neut % (Auto) 85.1 H, Lymph % (Auto) 6.8 L, Owen % (Auto) 7.3, Eos % (Auto) 0.0, Baso % (Auto) 0.1, Absolute Neuts (auto) 8.9 H, Absolute Lymphs (auto) 0.71 L, Nucleated RBC % 0 11/18/20 04:05: Sodium 128 L, Potassium 5.0, Chloride 97 L, Carbon Dioxide 20.0 L, Anion Gap 11, BUN 76 H, Creatinine 5.40 H, Estim Creat Clear Calc 16.30, Est GFR (MDRD) Af Amer 14 L, Est GFR (MDRD) Non-Af 11 L, BUN/Creatinine Ratio 14.1, Glucose 316 H, Calcium 7.5 L, Total Bilirubin 0.80, AST 40 H, ALT 49, Alkaline Phosphatase 70, Total Protein 6.4, Albumin 2.5 L, Globulin 3.9, Albumin/Globulin Ratio 0.6 L 11/18/20 05:24: Specimen Type ART, Sample Site R Radial, pH 7.32 L, Bicarbonate Actual 17.7 L, Total CO2 19, Base Excess -8 L, O2 Saturation 94 L, O2 % 55, ABG pCO2 34.4 L, ABG pO2 75, Respiration Rate 12, O2 Delivery Device Adult Vent, Vent Mode BiLevel Current Medications Acetaminophen (Acetaminophen 650 Mg/20 Ml Udc) 650 mg NG Q6H PRN PRN PRN Reason: Pain Score 1-10/Temp > 100.7 F Last Admin: 11/18/20 03:29 Dose: 650 mg Documented by: Al Hydroxide/Mg Hydroxide (Mag Hydrox/Al Hydrox/Simeth 30 Ml Udc) 30 ml GT Q6H PRN PRN PRN Reason: Gastric Burning Albuterol/Ipratropium (Ipratropium/Albuterol Sulfate 3 Ml Ampul.Neb) 3 ml INHALATION Q6HWA.RT [facility] Last Admin: 11/18/20 07:25 Dose: 3 ml Documented by: Atorvastatin Calcium (Atorvastatin Calcium 20 Mg Tablet) 20 mg GT 1700 [facility] Last Admin: 11/17/20 16:41 Dose: 20 mg Documented by: Chlorhexidine Gluconate (Chlorhexidine 15 Ml) 15 ml PO BID [facility] Last Admin: 11/17/20 20:37 Dose: 15 ml Documented by: Dexamethasone (Dexamethasone 4 Mg Tablet) 6 mg GT DAILY [facility] Stop: 11/23/20 10:01 Last Admin: 11/17/20 11:14 Dose: 6 mg Documented by: Dextrose (Dextrose 50%-Water 25 Gm/50 Ml Disp.Syrin) 0 gm IV X1 PRN; Protocol PRN Reason: Hypoglycemia Glucagon (Glucagon 1 Mg/Ml Syringe) 1 mg IM .X1 PRN PRN Reason: Hypoglycemia Guaifenesin (Guaifenesin 10 Ml Udc (200mg/10ml)) 10 ml GT Q6 [facility] Last Admin: 11/18/20 05:41 Dose: Not Given Documented by: Remdesivir 100 mg/ Sodium (Chloride) 250 mls @ 125 mls/hr IV DAILY [facility]; Protocol Stop: 11/18/20 11:59 Last Infusion: 11/17/20 13:18 Dose: Infused Documented by: Propofol (Diprivan) 1,000 mg in 100 mls @ 9.708 mls/hr CONT INF .[id number] [facility]; Protocol Last Admin: 11/18/20 07:16 Dose: 20 mcg/kg/min, 19.4 mls/hr Documented by: Fentanyl Citrate 1,000 mcg/ (Sodium Chloride) 100 mls @ 5 mls/hr CONT INF .Q20H [facility]; Protocol Last Admin: 11/18/20 09:00 Dose: 100 mcg/hr, 10 mls/hr Documented by: Pantoprazole Sodium 80 mg/ (Sodium Chloride) 100 mls @ 10 mls/hr CONT INF Q10H [facility] Last Admin: 11/18/20 03:31 Dose: 10 mls/hr Documented by: Dexmedetomidine HCl 400 mcg/ (Sodium Chloride) 100 mls @ 20.225 mls/hr CONT INF .Q4H57M [facility]; Protocol Last Admin: 11/18/20 07:15 Dose: 0.8 mcg/kg/hr, 32.4 mls/hr Documented by: Dexmedetomidine HCl 1,000 mcg/ (Sodium Chloride) 250 mls @ 20.225 mls/hr CONT INF .[id number] [facility]; Protocol Last Admin: 11/18/20 08:39 Dose: 0.8 mcg/kg/hr, 32.4 mls/hr Documented by: Insulin Glargine (Insulin Glargine 100 Units/Ml Pen) 30 units SC BID@0000,1200 [facility] Last Admin: 11/18/20 00:20 Dose: 30 u Documented by: Insulin Human Lispro (Insulin Lispro 100 Unit/Ml Insuln.Pen) 0 unit SC Q6H [facility]; Protocol Last Admin: 11/18/20 05:37 Dose: 9 u Documented by: Insulin Human Lispro (Insulin Lispro 100 Unit/Ml Insuln.Pen) 15 unit SC Q6 [facility] Last Admin: 11/18/20 05:39 Dose: Not Given Documented by: Lorazepam (Lorazepam 2 Mg/Ml Syringe) 2 mg IV Q2H PRN PRN PRN Reason: AGITATION Ondansetron HCl (Ondansetron 4 Mg/2 Ml Vial) 4 mg IV Q8H PRN PRN PRN Reason: NAUSEA/VOMITING Senna/Docusate Sodium (Senna/Docusate Sodium 1 Tablet) 2 tablet GT BID PRN PRN PRN Reason: Constipation Sodium Chloride (0.9% Saline Lock 10 Ml Syringe) 10 - 40 ml IV UD PRN PRN Reason: SALINE FLUSH Last Admin: 11/17/20 20:49 Dose: 10 ml Documented by: STROKE Vital Signs/Narrative: Vital Signs Temp Pulse Resp BP Pulse Ox 11/18/20 07:25 83 34 H 11/18/20 07:00 101.8 F H 76 23 H 95/51 L 93 11/18/20 06:56 76 37 H 93 Medical Necessity - Tobacco Use Smoking Status: Former smoker Assessment/Plan All Active Problems COVID-19 (Acute) Thrombocytopenia (Acute) Leukopenia (Acute) Transaminitis (Acute) Hyponatremia (Acute) Acute hypoxic respiratory failure secondary to COVID-19 pneumonia -Pt CXR with patchy B infiltrates -Patient has decompensated further to the point of requiring endotracheal intubation which was performed this morning -Currently on bilevel ventilation with an FiO2 of 55%--> SPO2 at this time is 93% -And oxygen as able -Continue remdesivir Day 12/06 -Decadron 6 mg daily--> day 12/11 -ABG reviewed--> destiny with mild metabolic acidosis present with a pH of 7.32 -Blood cultures negative -Pulmonary following Transaminitis -Almost resolved -ALT is normalized and only mild AST elevation WOO secondary to ATN and Covid -We will place dialysis catheter today -Check urine creatinine, sodium, eosinophils -Check UA -Retroperitoneal ultrasound -Will likely need dialyzed soon -Continue to keep MAP greater than 65 -Avoid nephrotoxins -Consult nephrology Upper GI bleed -Gastric occult blood positive -Hemoglobin is relatively stable, continue to monitor closely -Tube feeds on hold -Aspirin discontinued -Xarelto has been on hold -Protonix drip Intermittent hypotension -Monitor for pressor needs -PICC line is in place Non-anion gap metabolic acidosis -Most likely cause is renal failure -Continue to monitor -Currently stable -We will most likely need dialysis Mild hyperkalemia -Suspect related to kidney injury and acidosis with extracellular shifts -Resolved Leukopenia/thrombocytopenia -Resolved Hyponatremia -Likely related to Covid -Worse at this time most likely related to acute kidney injury -Continue to monitor -May drop further with new kidney injury DM-2 -Patient is on Trulicity, Metformin, and glimepiride at home -Hold all home medications at this time -Blood sugars remain markedly elevated but improved since yesterday -Lantus increased to 40 units he ID -Increase short acting insulin to 20 units every 6 hours -Goal blood sugars are 140-180 - continue every 6 hour blood sugars Hypertension -Hold antihypertensives -Blood pressure has normalized and is on the lower side at times Hyperlipidemia -Continue statin History of coronary disease -Hold aspirin due to GI bleed YASMIN -BiPAP at at bedtime History of pulmonary embolism -Hold Xarelto with upper GI bleed Morbid obesity -BMI 42.6 -Complicates overall treatment, outcomes and prognosis History of tobacco abuse -Quit approximately 20 years ago -Suspect possible baseline COPD and will need outpatient PFTs after his acute infection has resolved DVT/GI prophylaxis -Continue NOAC -Protonix 40 mg daily CODE STATUS -DNR CCA ok for ETT -It is critical and family was updated today during ICU rounds Inpatient E&M: 36307 Subs Hosp L3
--- NOTE | 2020-11-18 10:18 | US_ITS ---
EXAM: US RETROPERITONEAL COMPLETE, RENAL CLINICAL INDICATION: WOO TECHNIQUE: Grayscale and color Doppler sonographic evaluation of the retroperitoneum was performed. This report was created using [employer] report generation technology. COMPARISON: None. FINDINGS: RIGHT KIDNEY: Unremarkable. No hydronephrosis. No shadowing calculus. No focal lesion. No perinephric collection is demonstrated. LEFT KIDNEY: Unremarkable. No hydronephrosis. No shadowing calculus. No focal lesion. No perinephric collection is demonstrated. BLADDER: Decompressed by NAYLOR catheter. Increased echogenicity of the liver is nonspecific but most commonly associated with hepatic steatosis. US/Kidney and Bladder IMPRESSION: No hydronephrosis. Electronically Signed: Alonzo Lawton MD ([place]) at 15:08 EDT , Service support ,
[2020-11-18] MEDS: LORazepam 2 MG/ML Syringe IV ×4 (10:40→21:23)
[2020-11-18] MEDS: 0.9% Saline Lock 10 ML Syringe IV ×4 (10:41→21:31)
[2020-11-18] MEDS: dexAMETHasone 4 MG Tablet 6 MG GT (10:43)
[2020-11-18] MEDS: Chlorhexidine 15 ML PO ×2 (10:43→21:31)
[2020-11-18 10:46] LABS: Bedside Glucose 189 mg/dL (70-110)
--- NOTE | 2020-11-18 11:23 | RAD_ITS ---
INDICATION: dialysis line placement EXAMINATION/TECHNIQUE: X-RAY - XR Chest 1 View COMPARISON: 11/17/2020. FINDINGS: Interval placement of right IJ dialysis catheter with tip at the RA/SVC junction. Interval placement of right PICC with tip in the mid SVC. Endotracheal tube is present with tip 6 cm above the sarah. Unchanged position of NG tube. Unchanged diffuse patchy airspace opacities bilaterally. The cardiomediastinal silhouette is unchanged. No pleural effusion or pneumothorax. No acute osseous abnormalities. RAD/CXR for Line Placement IMPRESSION: Interval placement of right IJ dialysis catheter with tip at the RA/SVC junction. Interval placement of right PICC with tip in the mid SVC. Unchanged diffuse patchy airspace opacities bilaterally. Electronically Signed: Lenny Chi MD at 12:03 EDT Tel , Service support ,
[2020-11-18 11:41] LABS: Bacteria 0 SEEN /hpf (None Seen); Mucous, Urine 0 SEEN /hpf (<or=2+); Squamous Epithelial Cells - UA 0 SEEN /hpf (0-5)
--- NOTE | 2020-11-18 11:52 | CCHN_ITS ---
Hospitalist Note Procedure: Right HD catheter placement Indication: Acute kidney injury Timeout: Completed The right neck was cleaned thoroughly with chlorhexidine. After the proceduralists wash her hands and donned a sterile gown and gloves, the dialysis kit was opened and set up for placement. A full body sterile sheet was placed over the patient in the area of the right IJ was reprepped with chlorhexidine. Utilizing ultrasound guidance with a sterile probe cover the right internal ju gular vein was identified and the area was numbed with lidocaine. The right internal jugular vein was then cannulated via Seldinger technique and dilated x2. The dialysis catheter was then placed with good blood return and both ports. Both ports were flushed with normal saline and flushed easily. The catheter was then sutured in. A sterile dressing was then placed over top of the dialysis catheter. Chest x-ray was performed and the dialysis catheter was noted to be in good position. An okay to use catheter line order was placed. Multi Select Codes - Hospitalists' Procedures Procedures: 05090 US Guide Vascular Access
[2020-11-18 11:55] LABS: Color, Urine Brown (Yellow); Glucose, Dipstick Normal (Normal); Ketone-Dipstick 15 mg/dl (Negative); Leukocyte Esterase-Dipstick 25 /ul (Negative); Nitrite-Dipstick Negative (Negative); Occult Blood-Urine 150 /ul (Negative); Protein-Dipstick 500 mg/dl (Negative); Urine Bilirubin Dipstick Negative (Negative); Urine Clarity Turbid (Clear); Urine Urobilinogen Normal (Normal)
[2020-11-18 12:16] LABS: Red Blood Cells-Urine > 100 SEEN /hpf (0-5); White Blood Cells 0-5 SEEN /hpf (0-5)
[2020-11-18 12:18] LABS: Urine Sodium 39 mmol/L (Not Establ.)
[2020-11-18] MEDS: Propofol 10MG/Ml 1,000 MG/100 ML Bottle 4.9 MG CONT INF ×2 (13:01→21:18)
[2020-11-18] MEDS: 0.9% Normal Saline 1,000 ML 150 ML IV ×2 (14:51→21:22)
[2020-11-18] MEDS: Atorvastatin Calcium 20 MG Tablet GT (16:55)
--- NOTE | 2020-11-18 17:10 | PCM.CONS.R ---
Consultation - Renal 11/18/20 PCP/ Referring MD: Requesting physician: [] Primary care physician: Anil Barrett, [employer] Reason for Consultation:: WOO - History of Present Illness History of Present Illness: The patient is a 65 year old M with coronary artery disease hypertension dyslipidemia obstructive sleep apnea diabetes mellitus type 2 who presented to the emergency room with a chief complaint of shortness of breath. He had been feeling ill since Friday with generalized fatigue dizziness diarrhea fevers cough and shortness of breath. He was taking Xarelto for history of pulmonary embolism. A COVID-19 rapid antigen test was positive. He was found to have leukopenia thrombocytopenia and mild hyponatremia and mild congestion with extensive multifocal airspace opacities on the chest x-ray and admitted to the hospital. He was treated with remdesivir and Decadron. His serum creatinine increased from 1.02 to 5.4 today which prompted renal consult. The patient became oliguric yesterday with development with low blood pressure with systolic in the 80s. The sound was done and was read as no hydronephrosis.ROS cannot be obtained as the patient is intubated - Allergies Allergies: Allergies No Known Allergies Allergy (Verified 11/14/20 09:51) - Current Medications Current Medications: Current Medications Acetaminophen (Acetaminophen 650 Mg/20 Ml Udc) 650 mg NG Q6H PRN PRN PRN Reason: Pain Score 1-10/Temp > 100.7 F Last Admin: 11/18/20 10:42 Dose: 650 mg Documented by: Al Hydroxide/Mg Hydroxide (Mag Hydrox/Al Hydrox/Simeth 30 Ml Udc) 30 ml GT Q6H PRN PRN PRN Reason: Gastric Burning Albuterol/Ipratropium (Ipratropium/Albuterol Sulfate 3 Ml Ampul.Neb) 3 ml INHALATION Q6HWA.RT [facility] Last Admin: 11/18/20 13:13 Dose: 3 ml Documented by: Atorvastatin Calcium (Atorvastatin Calcium 20 Mg Tablet) 20 mg GT 1700 [facility] Last Admin: 11/18/20 16:55 Dose: 20 mg Documented by: Chlorhexidine Gluconate (Chlorhexidine 15 Ml) 15 ml PO BID [facility] Last Admin: 11/18/20 10:43 Dose: 15 ml Documented by: Dexamethasone (Dexamethasone 4 Mg Tablet) 6 mg GT DAILY [facility] Stop: 11/23/20 10:01 Last Admin: 11/18/20 10:43 Dose: 6 mg Documented by: Dextrose (Dextrose 50%-Water 25 Gm/50 Ml Disp.Syrin) 0 gm IV X1 PRN; Protocol PRN Reason: Hypoglycemia Glucagon (Glucagon 1 Mg/Ml Syringe) 1 mg IM .X1 PRN PRN Reason: Hypoglycemia Guaifenesin (Guaifenesin 10 Ml Udc (200mg/10ml)) 10 ml GT Q6 [facility] Last Admin: 11/18/20 16:55 Dose: 10 ml Documented by: Propofol (Diprivan) 1,000 mg in 100 mls @ 9.708 mls/hr CONT INF .[id number] [facility]; Protocol Last Titration: 11/18/20 16:00 Dose: 5 mcg/kg/min, 4.9 mls/hr Documented by: Fentanyl Citrate 1,000 mcg/ (Sodium Chloride) 100 mls @ 5 mls/hr CONT INF .Q20H [facility]; Protocol Last Titration: 11/18/20 16:00 Dose: 175 mcg/hr, 17.5 mls/hr Documented by: Pantoprazole Sodium 80 mg/ (Sodium Chloride) 100 mls @ 10 mls/hr CONT INF Q10H [facility] Last Admin: 11/18/20 11:40 Dose: 10 mls/hr Documented by: Dexmedetomidine HCl 1,000 mcg/ (Sodium Chloride) 250 mls @ 20.225 mls/hr CONT INF .[id number] [facility]; Protocol Last Titration: 11/18/20 16:00 Dose: 1.5 mcg/kg/hr, 60.7 mls/hr Documented by: Sodium Chloride () 1,000 mls @ 150 mls/hr IV .Q6H40M [facility] Last Admin: 11/18/20 14:51 Dose: 150 mls/hr Documented by: Insulin Glargine (Insulin Glargine 100 Units/Ml Pen) 40 units SC BID@0000,1200 [facility] Last Admin: 11/18/20 10:44 Dose: 40 u Documented by: Insulin Human Lispro (Insulin Lispro 100 Unit/Ml Insuln.Pen) 0 unit SC Q6H [facility]; Protocol Last Admin: 11/18/20 16:56 Dose: 3 u Documented by: Insulin Human Lispro (Insulin Lispro 100 Unit/Ml Insuln.Pen) 20 unit SC Q6 [facility] Last Admin: 11/18/20 16:56 Dose: Not Given Documented by: Lorazepam (Lorazepam 2 Mg/Ml Syringe) 2 mg IV Q2H PRN PRN PRN Reason: AGITATION Last Admin: 11/18/20 16:52 Dose: 2 mg Documented by: Ondansetron HCl (Ondansetron 4 Mg/2 Ml Vial) 4 mg IV Q8H PRN PRN PRN Reason: NAUSEA/VOMITING Polyethylene Glycol (Polyethylene Glycol 3350 17 Gm Packet) 17 gm GT DAILY [facility] Senna/Docusate Sodium (Senna/Docusate Sodium 1 Tablet) 2 tablet GT BID [facility] Sodium Chloride (0.9% Saline Lock 10 Ml Syringe) 10 - 40 ml IV UD PRN PRN Reason: SALINE FLUSH Last Admin: 11/18/20 16:52 Dose: 10 ml Documented by: - Past Medical History Past Medical History (Chronic Problems): Chronic Problems Diabetes (Chronic) HTN (hypertension) (Chronic) Hyperlipemia (Chronic) YASMIN (obstructive sleep apnea) (Chronic) Morbid obesity (Chronic) CAD (coronary artery disease) (Chronic) Pulmonary embolism (Chronic) - Social History Smoking Status: Former smoker Patient Problems: Active and Suspected Problems COVID-19 (Acute) Thrombocytopenia (Acute) Leukopenia (Acute) Transaminitis (Acute) Hyponatremia (Acute) Objective: Physical examination was deferred to preserve PPE and prevent further transmission of COVID-19 - Physical Exam Vitals/I&O's: Vital Signs Temp Pulse Resp BP Pulse Ox 101.7 F H 82 26 H 108/62 93 11/18/20 16:00 11/18/20 16:00 11/18/20 16:00 11/18/20 16:00 11/18/20 16:00 Oxygen Flow Rate (L/min) 60 Oxygen Delivery Method Mechanical Ventilator Weight: 161.8 kg Body Mass Index (BMI) 42.7 Intake and Output for Last 24 Hours 11/16/20 11/17/20 11/18/20 23:59 23:59 23:59 Intake Total 2744.93 / 2831.53 3053.14 / 3421.14 1979.60 / 1979.60 Output Total 950 / 950 148 / 153 180 / 180 Balance 1794.93 / 1881.53 2905.14 / 3268.14 1799.60 / 1799.60 Microbiology Past 72 Hours 04/16/21 11:45 Sputum, Induced/Lukens Gram Stain - Final 11/17/20 11:45 Sputum, Induced/Lukens Respiratory Culture - Preliminary Staphylococcus aureus Streptococcus agalactiae (B) 11/18/20 00:40 Gastric Fluid/Contents Gastric Occult Blood - Final Occult Blood Positive 11/14/20 10:45 Blood Culture (Wb) - Anticubital Right Blood Culture - Preliminary No growth in 48 hours. 11/14/20 10:15 Blood Culture (Wb) - Anticubital Left Blood Culture - Preliminary No growth in 48 hours. Laboratory Results 11/17/20 16:37: POC Glucose 318 H 11/18/20 00:16: POC Glucose 389 H 11/18/20 00:40: Hgb 12.0 L, Hct 35.4 L 11/18/20 04:05: WBC 10.4, RBC 3.62 L, Hgb 12.0 L, Hct 35.5 L, MCV 98.1 H, MCH 33.1 H, MCHC 33.8, RDW Std Deviation 50.4 H, RDW Coeff of Keyonna 13.9, Plt Count 167, MPV 11.2, Immature Gran % (Auto) 0.700, Neut % (Auto) 85.1 H, Lymph % (Auto) 6.8 L, Winkler % (Auto) 7.3, Eos % (Auto) 0.0, Baso % (Auto) 0.1, Absolute Neuts (auto) 8.9 H, Absolute Lymphs (auto) 0.71 L, Nucleated RBC % 0 11/18/20 04:05: Sodium 128 L, Potassium 5.0, Chloride 97 L, Carbon Dioxide 20.0 L, Anion Gap 11, BUN 76 H, Creatinine 5.40 H, Estim Creat Clear Calc 16.30, Est GFR (MDRD) Af Amer 14 L, Est GFR (MDRD) Non-Af 11 L, BUN/Creatinine Ratio 14.1, Glucose 316 H, Calcium 7.5 L, Total Bilirubin 0.80, AST 40 H, ALT 49, Alkaline Phosphatase 70, Total Protein 6.4, Albumin 2.5 L, Globulin 3.9, Albumin/Globulin Ratio 0.6 L 11/18/20 05:24: Specimen Type ART, Sample Site R Radial, pH 7.32 L, Bicarbonate Actual 17.7 L, Total CO2 19, Base Excess -8 L, O2 Saturation 94 L, O2 % 55, ABG pCO2 34.4 L, ABG pO2 75, Respiration Rate 12, O2 Delivery Device Adult Vent, Vent Mode BiLevel 11/18/20 10:32: POC Glucose 189 H 11/18/20 11:35: Urine Color Brown, Urine Clarity Turbid, Urine pH 7.0, Ur Specific [place] 1.020, Urine Protein 500 H, Urine Glucose (UA) Normal, Urine Ketones 15 H, Urine Occult Blood 150 H, Urine Nitrite Negative, Urine Bilirubin Negative, Urine Urobilinogen Normal, Ur Leukocyte Esterase 25 H, Urine RBC > 100 SEEN, Urine WBC 0-5 SEEN, Ur Squamous Epith Cells 0 SEEN, Urine Bacteria 0 SEEN, Urine Mucus 0 SEEN 11/18/20 11:35: Ur Random Sodium 39, Urine Creatinine 189.00 Current Medications Acetaminophen (Acetaminophen 650 Mg/20 Ml Udc) 650 mg NG Q6H PRN PRN PRN Reason: Pain Score 1-10/Temp > 100.7 F Last Admin: 11/18/20 10:42 Dose: 650 mg Documented by: Al Hydroxide/Mg Hydroxide (Mag Hydrox/Al Hydrox/Simeth 30 Ml Udc) 30 ml GT Q6H PRN PRN PRN Reason: Gastric Burning Albuterol/Ipratropium (Ipratropium/Albuterol Sulfate 3 Ml Ampul.Neb) 3 ml INHALATION Q6HWA.RT [facility] Last Admin: 11/18/20 13:13 Dose: 3 ml Documented by: Atorvastatin Calcium (Atorvastatin Calcium 20 Mg Tablet) 20 mg GT 1700 [facility] Last Admin: 11/18/20 16:55 Dose: 20 mg Documented by: Chlorhexidine Gluconate (Chlorhexidine 15 Ml) 15 ml PO BID [facility] Last Admin: 11/18/20 10:43 Dose: 15 ml Documented by: Dexamethasone (Dexamethasone 4 Mg Tablet) 6 mg GT DAILY [facility] Stop: 11/23/20 10:01 Last Admin: 11/18/20 10:43 Dose: 6 mg Documented by: Dextrose (Dextrose 50%-Water 25 Gm/50 Ml Disp.Syrin) 0 gm IV X1 PRN; Protocol PRN Reason: Hypoglycemia Glucagon (Glucagon 1 Mg/Ml Syringe) 1 mg IM .X1 PRN PRN Reason: Hypoglycemia Guaifenesin (Guaifenesin 10 Ml Udc (200mg/10ml)) 10 ml GT Q6 [facility] Last Admin: 11/18/20 16:55 Dose: 10 ml Documented by: Propofol (Diprivan) 1,000 mg in 100 mls @ 9.708 mls/hr CONT INF .[id number] [facility]; Protocol Last Titration: 11/18/20 16:00 Dose: 5 mcg/kg/min, 4.9 mls/hr Documented by: Fentanyl Citrate 1,000 mcg/ (Sodium Chloride) 100 mls @ 5 mls/hr CONT INF .Q20H [facility]; Protocol Last Titration: 11/18/20 16:00 Dose: 175 mcg/hr, 17.5 mls/hr Documented by: Pantoprazole Sodium 80 mg/ (Sodium Chloride) 100 mls @ 10 mls/hr CONT INF Q10H [facility] Last Admin: 11/18/20 11:40 Dose: 10 mls/hr Documented by: Dexmedetomidine HCl 1,000 mcg/ (Sodium Chloride) 250 mls @ 20.225 mls/hr CONT INF .[id number] [facility]; Protocol Last Titration: 11/18/20 16:00 Dose: 1.5 mcg/kg/hr, 60.7 mls/hr Documented by: Sodium Chloride () 1,000 mls @ 150 mls/hr IV .Q6H40M [facility] Last Admin: 11/18/20 14:51 Dose: 150 mls/hr Documented by: Insulin Glargine (Insulin Glargine 100 Units/Ml Pen) 40 units SC BID@0000,1200 [facility] Last Admin: 11/18/20 10:44 Dose: 40 u Documented by: Insulin Human Lispro (Insulin Lispro 100 Unit/Ml Insuln.Pen) 0 unit SC Q6H [facility]; Protocol Last Admin: 11/18/20 16:56 Dose: 3 u Documented by: Insulin Human Lispro (Insulin Lispro 100 Unit/Ml Insuln.Pen) 20 unit SC Q6 [facility] Last Admin: 11/18/20 16:56 Dose: Not Given Documented by: Lorazepam (Lorazepam 2 Mg/Ml Syringe) 2 mg IV Q2H PRN PRN PRN Reason: AGITATION Last Admin: 11/18/20 16:52 Dose: 2 mg Documented by: Ondansetron HCl (Ondansetron 4 Mg/2 Ml Vial) 4 mg IV Q8H PRN PRN PRN Reason: NAUSEA/VOMITING Polyethylene Glycol (Polyethylene Glycol 3350 17 Gm Packet) 17 gm GT DAILY [facility] Senna/Docusate Sodium (Senna/Docusate Sodium 1 Tablet) 2 tablet GT BID [facility] Sodium Chloride (0.9% Saline Lock 10 Ml Syringe) 10 - 40 ml IV UD PRN PRN Reason: SALINE FLUSH Last Admin: 11/18/20 16:52 Dose: 10 ml Documented by: Assessment/Plan All Active Problems COVID-19 (Acute) Thrombocytopenia (Acute) Leukopenia (Acute) Transaminitis (Acute) Hyponatremia (Acute) WOO-ATN Baseline creatinine 1.0 Hyponatremia Metabolic acidosis Shock Covid?19 infection Respiratory failure secondary to COVID-19 pneumonia on vent Initiate dialysis today no UF because of hypotension Reviewed UA and renal ultrasound Keep mean arterial pressure more than 65 Avoid nephrotoxins Thanks for consult Will f/u
--- NOTE | 2020-11-18 20:51 | DIALYSIS ---
hd X 3 HOURS ON 2K BATH uf +400 ML BP LOW AND PT IN AND OUT OF AFIB -RIJ CATH WITH GOOD FLOWS HEP LABS ORDERED REPORT TO ONEYDA RUBIO
[2020-11-18] MEDS: Senna/Docusate Sodium 1 Tablet 2 TABLET GT (21:23)
[2020-11-18 21:41] LABS: Bedside Glucose 173 mg/dL (70-110)
[2020-11-19] VITALS (50 sets, daily range): BP systolic 61–192; BP diastolic 28–147; PULSE 86–138; RESP 16–39; TEMP 36.9–38.6; O2SAT 80–97
[2020-11-19 01:06] LABS: Bedside Glucose 101 mg/dL (70-110)
[2020-11-19] MEDS: 0.9% Normal Saline 1,000 ML 150 ML IV (04:00)
[2020-11-19 05:01] LABS: Allen Test Positive; Base Excess -8 mmol/L (-2 to +2); Bicarbonate 19.7 mmol/L (22-26); Blood Gas Specimen Type ART; FI02 50; Mode BiLevel; O2 Delivery Device Adult Vent; PEEP 26; PO2 53 mmHG (75-100); RR 12; SITE L Radial; SO2 80 % (95-99); Total Carbon Dioxide 21 mmol/L; pCO2 47.7 mmHg (35-45); pH 7.23 (7.35-7.45)
[2020-11-19 05:07] LABS: Absolute Lymphocyte Count 0.96 X10^3/uL (0.83-4.51); Absolute Neutrophil Count 12.6 X10^3/uL (2.0-7.7); Basophil# 0.07 X10^3/uL; Basophil% 0.5 % (0-1); Eosinophil# 0.12 X10^3/uL; Eosinophils% 0.8 % (0-5); Hematocrit 39.6 % (40-54); Lymphocyte # 0.96 X10^3/ul (0.83-4.51); Lymphocyte % 6.3 % (19-41); Mean Corp Hgb Conc 32.8 g/dL (32-36); Mean Corpuscular Hgb 33.2 pg (27.0-32.0); Mean Platelet Vol. 11.4 fl (6.2-12.0); Monocyte# 0.93 X10^3/uL; Monocyte% 6.1 % (0-10); NRBC Flagged by Analyzer 0 % (0-5); Neutrophil # 12.64 X10^3/uL (2.7-7.7); Neutrophil % 83.3 % (47-70); POSITIVE MORPHOLOGY YES; Platelet Count 179 K/mm3 (150-450); RBC Distribution Width SD 52.6 fl (35.1-43.9); Red Blood Count 3.92 M/mm3 (4.6-6.2); White Blood Count 15.2 K/mm3 (4.4-11.0)
[2020-11-19 05:19] LABS: Differential Indicated SCAN CRITERIA MET
[2020-11-19 05:25] LABS: ALB/GLOB Ratio 0.5 RATIO (0.9-2.4); AST(SGOT) 46 U/L (15-37); Alanine Aminotransfer ALT/SGPT 45 U/L (16-61); Albumin, Serum 2.1 g/dL (3.2-5.0); Alkaline Phosphatase 73 U/L (45-117); Anion Gap 14 (5-15); BUN 65 mg/dL (7-18); BUN/Creat Ratio 10.4 RATIO (10-20); Calcium,Total 7.1 mg/dL (8.5-10.1); Chloride 97 mmol/L (98-107); Creatinine, Serum 6.23 mg/dL (0.70-1.30); EST Glomerular Filtration Rate 10 mL/min (>60); Est Glom Filt Rate - Afr Amer 12 mL/min (>60); Estimated Creatinine Clearance 14.13 ml/min; Globulin 4.1 g/dL (2.2-4.2); Glucose 133 mg/dL (74-106); Potassium 4.8 mmol/L (3.5-5.1); Protein, Total 6.2 g/dL (6.4-8.2); Sodium Level 132 mmol/L (136-145)
[2020-11-19] MEDS: TITRATION PARAMETER CHANGE 1 EACH IV (06:14)
[2020-11-19 06:24] LABS: Differential Comment SCANNED
[2020-11-19] MEDS: 0.9% Saline Lock 10 ML Syringe IV ×2 (06:43→19:17)
[2020-11-19] MEDS: Metoprolol Tartrate 5 MG/5 ML Vial 2.5 MG IV (06:43)
[2020-11-19] MEDS: guaiFENesin 10 ML UDC (200MG/10ML) GT ×3 (06:43→18:14)
[2020-11-19] MEDS: Ipratropium/Albuterol Sulfate 3 ML AMPUL.NEB INHALATION ×3 (07:21→18:34)
--- NOTE | 2020-11-19 07:29 | PCM.PN.INT ---
Subjective: Patient did okay overnight. Patient did have some hypotension, but this was related to sedation. Patient has had some A. fib overnight. Patient did have hemodialysis yesterday, but no fluid was removed. Patient has been successfully transitioned to Precedex therapy. Nursing has been reporting highly variable oxygen saturations. General: - - Intubated and sedated. Fair vent synchrony. HEENT: Atraumatic, PERRLA, EOMI, Normocephalic, - - Slight scleral injection without icterus Oral: Moist Mucosa, No Gingival or Mucosal Lesions/ Ulcerations Neck: Supple, No Nodes, Trachea Midline, - - Dialysis catheter is clean, dry and intact Lungs: No wheeze, Diminished, Rhonchi - Bilateral, - - Symmetric expansion Cardiovascular: Normal S1, Normal S2, No murmurs, Irregular Rate, No rub noted, No Gallop, Tachycardic Abdomen: Bowel Sounds Present, Soft, Non Tender, Non-Distended, Obese Extremities: No clubbing, No cyanosis, Edema Skin: No rashes, No breakdown Musculoskeletal: No Tenderness to Palpation of Joints or Extremities Lymphatic: No Cervical, Supraclavicular, or Inguinal Adenopathy Neurological: Cranial nerves II-XII grossly intact, Neuro grossly intact Psych/Mental Status: Flat Affect Vital Signs Temp Pulse Resp BP Pulse Ox 37.2 C 99 39 H 192/147 H 92 11/19/20 06:00 11/19/20 07:24 11/19/20 07:24 11/19/20 06:43 11/19/20 06:00 Oxygen Flow Rate (L/min) 60 Oxygen Delivery Method Mechanical Ventilator Weight: 165.3 kg Body Mass Index (BMI) 42.7 Intake and Output for Last 24 Hours 11/17/20 11/18/20 11/19/20 23:59 23:59 23:59 Intake Total 3053.14 / 3421.14 4528.04 / 4556.34 1513.21 / 1513.21 Output Total 148 / 153 935 / 1335 500 / 500 Balance 2905.14 / 3268.14 3593.04 / 3221.34 1013.21 / 1013.21 Labs (Last 48 Hours) 11/17/20 11/17/20 11/17/20 04:54 11:09 16:37 WBC RBC Hgb Hct MCV MCH MCHC RDW Std Deviation RDW Coeff of Keyonna Plt Count MPV Immature Gran % (Auto) Neut % (Auto) Lymph % (Auto) [place] % (Auto) Eos % (Auto) Baso % (Auto) Absolute Neuts (auto) Absolute Lymphs (auto) Nucleated RBC % Differential Comment Specimen Type Sample Site pH Bicarbonate Actual Total CO2 Base Excess O2 Saturation O2 % ABG pCO2 ABG pO2 Erick Test Respiration Rate O2 Delivery Device Vent Mode POC PEEP Sodium Potassium Chloride Carbon Dioxide Anion Gap BUN Creatinine Estim Creat Clear Calc Est GFR (MDRD) Af Amer Est GFR (MDRD) Non-Af BUN/Creatinine Ratio Glucose Calcium Total Bilirubin AST ALT Alkaline Phosphatase Total Protein Albumin Globulin Albumin/Globulin Ratio Urine Color Urine Clarity Urine pH Ur Specific [place] Urine Protein Urine Glucose (UA) Urine Ketones Urine Occult Blood Urine Nitrite Urine Bilirubin Urine Urobilinogen Ur Leukocyte Esterase Urine RBC Urine WBC Ur Squamous Epith Cells Urine Bacteria Urine Mucus Ur Random Sodium Urine Creatinine Hepatitis A IgM Ab Hep Bs Antigen Hep B Core IgM Ab Hepatitis C Ab (EIA) POC Glucose 311 H 268 H 318 H 11/18/20 11/18/20 11/18/20 00:16 00:40 04:05 WBC 10.4 RBC 3.62 L Hgb 12.0 L 12.0 L Hct 35.4 L 35.5 L MCV 98.1 H MCH 33.1 H MCHC 33.8 RDW Std Deviation 50.4 H RDW Coeff of Keyonna 13.9 Plt Count 167 MPV 11.2 Immature Gran % (Auto) 0.700 Neut % (Auto) 85.1 H Lymph % (Auto) 6.8 L [place] % (Auto) 7.3 Eos % (Auto) 0.0 Baso % (Auto) 0.1 Absolute Neuts (auto) 8.9 H Absolute Lymphs (auto) 0.71 L Nucleated RBC % 0 Differential Comment Specimen Type Sample Site pH Bicarbonate Actual Total CO2 Base Excess O2 Saturation O2 % ABG pCO2 ABG pO2 Erick Test Respiration Rate O2 Delivery Device Vent Mode POC PEEP Sodium Potassium Chloride Carbon Dioxide Anion Gap BUN Creatinine Estim Creat Clear Calc Est GFR (MDRD) Af Amer Est GFR (MDRD) Non-Af BUN/Creatinine Ratio Glucose Calcium Total Bilirubin AST ALT Alkaline Phosphatase Total Protein Albumin Globulin Albumin/Globulin Ratio Urine Color Urine Clarity Urine pH Ur Specific [place] Urine Protein Urine Glucose (UA) Urine Ketones Urine Occult Blood Urine Nitrite Urine Bilirubin Urine Urobilinogen Ur Leukocyte Esterase Urine RBC Urine WBC Ur Squamous Epith Cells Urine Bacteria Urine Mucus Ur Random Sodium Urine Creatinine Hepatitis A IgM Ab Hep Bs Antigen Hep B Core IgM Ab Hepatitis C Ab (EIA) POC Glucose 389 H 11/18/20 11/18/20 11/18/20 04:05 05:24 10:32 WBC RBC Hgb Hct MCV MCH MCHC RDW Std Deviation RDW Coeff of Keyonna Plt Count MPV Immature Gran % (Auto) Neut % (Auto) Lymph % (Auto) [place] % (Auto) Eos % (Auto) Baso % (Auto) Absolute Neuts (auto) Absolute Lymphs (auto) Nucleated RBC % Differential Comment Specimen Type ART Sample Site R Radial pH 7.32 L Bicarbonate Actual 17.7 L Total CO2 19 Base Excess -8 L O2 Saturation 94 L O2 % 55 ABG pCO2 34.4 L ABG pO2 75 Erick Test Respiration Rate 12 O2 Delivery Device Adult Vent Vent Mode BiLevel POC PEEP Sodium 128 L Potassium 5.0 Chloride 97 L Carbon Dioxide 20.0 L Anion Gap 11 BUN 76 H Creatinine 5.40 H Estim Creat Clear Calc 16.30 Est GFR (MDRD) Af Amer 14 L Est GFR (MDRD) Non-Af 11 L BUN/Creatinine Ratio 14.1 Glucose 316 H Calcium 7.5 L Total Bilirubin 0.80 AST 40 H ALT 49 Alkaline Phosphatase 70 Total Protein 6.4 Albumin 2.5 L Globulin 3.9 Albumin/Globulin Ratio 0.6 L Urine Color Urine Clarity Urine pH Ur Specific [place] Urine Protein Urine Glucose (UA) Urine Ketones Urine Occult Blood Urine Nitrite Urine Bilirubin Urine Urobilinogen Ur Leukocyte Esterase Urine RBC Urine WBC Ur Squamous Epith Cells Urine Bacteria Urine Mucus Ur Random Sodium Urine Creatinine Hepatitis A IgM Ab Hep Bs Antigen Hep B Core IgM Ab Hepatitis C Ab (EIA) POC Glucose 189 H 11/18/20 11/18/20 11/18/20 11:35 11:35 16:50 WBC RBC Hgb Hct MCV MCH MCHC RDW Std Deviation RDW Coeff of Keyonna Plt Count MPV Immature Gran % (Auto) Neut % (Auto) Lymph % (Auto) [place] % (Auto) Eos % (Auto) Baso % (Auto) Absolute Neuts (auto) Absolute Lymphs (auto) Nucleated RBC % Differential Comment Specimen Type Sample Site pH Bicarbonate Actual Total CO2 Base Excess O2 Saturation O2 % ABG pCO2 ABG pO2 Erick Test Respiration Rate O2 Delivery Device Vent Mode POC PEEP Sodium Potassium Chloride Carbon Dioxide Anion Gap BUN Creatinine Estim Creat Clear Calc Est GFR (MDRD) Af Amer Est GFR (MDRD) Non-Af BUN/Creatinine Ratio Glucose Calcium Total Bilirubin AST ALT Alkaline Phosphatase Total Protein Albumin Globulin Albumin/Globulin Ratio Urine Color Brown Urine Clarity Turbid Urine pH 7.0 Ur Specific [place] 1.020 Urine Protein 500 H Urine Glucose (UA) Normal Urine Ketones 15 H Urine Occult Blood 150 H Urine Nitrite Negative Urine Bilirubin Negative Urine Urobilinogen Normal Ur Leukocyte Esterase 25 H Urine RBC > 100 SEEN Urine WBC 0-5 SEEN Ur Squamous Epith Cells 0 SEEN Urine Bacteria 0 SEEN Urine Mucus 0 SEEN Ur Random Sodium 39 Urine Creatinine 189.00 Hepatitis A IgM Ab Hep Bs Antigen Hep B Core IgM Ab Hepatitis C Ab (EIA) POC Glucose 173 H 11/18/20 11/19/20 11/19/20 17:30 00:41 04:52 WBC RBC Hgb Hct MCV MCH MCHC RDW Std Deviation RDW Coeff of Keyonna Plt Count MPV Immature Gran % (Auto) Neut % (Auto) Lymph % (Auto) [place] % (Auto) Eos % (Auto) Baso % (Auto) Absolute Neuts (auto) Absolute Lymphs (auto) Nucleated RBC % Differential Comment Specimen Type ART Sample Site L Radial pH 7.23 L Bicarbonate Actual 19.7 L Total CO2 21 Base Excess -8 L O2 Saturation 80 L O2 % 50 ABG pCO2 47.7 H ABG pO2 53 L Erick Test Positive Respiration Rate 12 O2 Delivery Device Adult Vent Vent Mode BiLevel POC PEEP 26 Sodium Potassium Chloride Carbon Dioxide Anion Gap BUN Creatinine Estim Creat Clear Calc Est GFR (MDRD) Af Amer Est GFR (MDRD) Non-Af BUN/Creatinine Ratio Glucose Calcium Total Bilirubin AST ALT Alkaline Phosphatase Total Protein Albumin Globulin Albumin/Globulin Ratio Urine Color Urine Clarity Urine pH Ur Specific [place] Urine Protein Urine Glucose (UA) Urine Ketones Urine Occult Blood Urine Nitrite Urine Bilirubin Urine Urobilinogen Ur Leukocyte Esterase Urine RBC Urine WBC Ur Squamous Epith Cells Urine Bacteria Urine Mucus Ur Random Sodium Urine Creatinine Hepatitis A IgM Ab Pending Hep Bs Antigen Pending Hep B Core IgM Ab Pending Hepatitis C Ab (EIA) Pending POC Glucose 101 11/19/20 11/19/20 04:55 04:55 WBC 15.2 H RBC 3.92 L Hgb 13.0 Hct 39.6 L MCV 101.0 H MCH 33.2 H MCHC 32.8 RDW Std Deviation 52.6 H RDW Coeff of Keyonna 14.0 Plt Count 179 MPV 11.4 Immature Gran % (Auto) 3.000 H Neut % (Auto) 83.3 H Lymph % (Auto) 6.3 L [place] % (Auto) 6.1 Eos % (Auto) 0.8 Baso % (Auto) 0.5 Absolute Neuts (auto) 12.6 H Absolute Lymphs (auto) 0.96 Nucleated RBC % 0 Differential Comment SCANNED Specimen Type Sample Site pH Bicarbonate Actual Total CO2 Base Excess O2 Saturation O2 % ABG pCO2 ABG pO2 Erick Test Respiration Rate O2 Delivery Device Vent Mode POC PEEP Sodium 132 L Potassium 4.8 Chloride 97 L Carbon Dioxide 21.0 Anion Gap 14 BUN 65 H Creatinine 6.23 H Estim Creat Clear Calc 14.13 Est GFR (MDRD) Af Amer 12 L Est GFR (MDRD) Non-Af 10 L BUN/Creatinine Ratio 10.4 Glucose 133 H Calcium 7.1 L Total Bilirubin 1.60 H AST 46 H ALT 45 Alkaline Phosphatase 73 Total Protein 6.2 L Albumin 2.1 L Globulin 4.1 Albumin/Globulin Ratio 0.5 L Urine Color Urine Clarity Urine pH Ur Specific [place] Urine Protein Urine Glucose (UA) Urine Ketones Urine Occult Blood Urine Nitrite Urine Bilirubin Urine Urobilinogen Ur Leukocyte Esterase Urine RBC Urine WBC Ur Squamous Epith Cells Urine Bacteria Urine Mucus Ur Random Sodium Urine Creatinine Hepatitis A IgM Ab Hep Bs Antigen Hep B Core IgM Ab Hepatitis C Ab (EIA) POC Glucose Microbiology 11/17/20 11:45 Sputum, Induced/Lukens Gram Stain - Final 11/17/20 11:45 Sputum, Induced/Lukens Respiratory Culture - Preliminary Staphylococcus aureus Streptococcus agalactiae (B) 11/18/20 00:40 Gastric Fluid/Contents Gastric Occult Blood - Final Occult Blood Positive Clinical Impression(s) from Imaging Studies Renal Ultrasound 11/18/20 10:18 IMPRESSION: No hydronephrosis. Electronically Signed: Alonzo Lawton MD ([place]) at 15:08 EDT , Service support , Chest X-Ray 11/18/20 11:23 IMPRESSION: Interval placement of right IJ dialysis catheter with tip at the RA/SVC junction. Interval placement of right PICC with tip in the mid SVC. Unchanged diffuse patchy airspace opacities bilaterally. Electronically Signed: Lenny Chi MD at 12:03 EDT Tel , Service support , Medical Necessity - Tobacco Use Smoking Status: Former smoker Assessment/Plan All Active Problems COVID-19 (Acute) Thrombocytopenia (Acute) Leukopenia (Acute) Transaminitis (Acute) Hyponatremia (Acute) RECOMMENDATIONS: 1. Continue with Decadron and remdesivir 2. Continue APRV ventilation. Wean oxygen as tolerated. Possibly wean P high if able to tolerate 50% FiO2 3. Aggressive control of blood sugars 4. Possible hemodialysis per nephrology. Volume removal if possible 5. Continue Protonix drip for now, but likely transition to Protonix twice daily once current bag empties 6. Trial with beta-nj IMPRESSIONS: 1. Acute hypoxic respiratory failure secondary to ARDS secondary to COVID-19 pneumonia Patient with rapid progression of disease. Patient does have a history of PE in the past, but is on full dose anticoagulation. Patient with significant worsening of renal function over the last 24 hours. Patient appears to be tolerating transition to APRV. Continue to wean FiO2 as tolerated. If able to tolerate 40 to 50% FiO2, could consider decreasing P high. No spontaneous breathing trials at this time. Patient transition to Precedex and appears to be tolerating well. Ativan is available if necessary. 2. Acute kidney injury Patient continues to deteriorate from a renal perspective. Patient did receive hemodialysis yesterday, but no fluid was removed. Patient would benefit from volume removal from my perspective. 3. Diabetes mellitus without insulin requirements Patient does not require insulin at baseline, but given Decadron therapy, highly suspicious that supplemental insulin will be required. Will discontinue every 6 Humalog. Continue Lantus. Patient not tolerating tube feeds at this point. 4. Morbid obesity/YASMIN/hypertension/hyperlipidemia Complicates care, management, recovery and prognosis. Patient noncompliant with YASMIN therapy prior to intubation. Will have to be readdressed on extubation. Morbid obesity makes proning more difficult. 5. CODE STATUS Patient states he was willing to be intubated and tracheostomy placed prior to initiation of mechanical ventilation. Patient did state that if his heart were to stop he would not want to be brought back because he would be too far gone. Patient was not under the influence of any altering medications at the time of this conversation. TIME: 39 minutes critical care time spent addressing patient's acute hypoxic respiratory failure, diabetes mellitus, hypertension, YASMIN, review of all data and collaboration with care team (6 AM to 7 AM) [phone]: [id number] Critical care first hour
[2020-11-19] MEDS: dexAMETHasone 4 MG Tablet 6 MG GT (10:56)
[2020-11-19] MEDS: Senna/Docusate Sodium 1 Tablet 2 TABLET GT (10:56)
[2020-11-19] MEDS: Polyethylene Glycol 3350 17 GM PACKET GT (10:56)
[2020-11-19] MEDS: Chlorhexidine 15 ML PO ×2 (10:56→21:27)
[2020-11-19] MEDS: Insulin Lispro 100 UNIT/ML INSULN.PEN SC (10:57)
[2020-11-19 11:16] LABS: Bedside Glucose 158 mg/dL (70-110)
--- NOTE | 2020-11-19 15:04 | PCM.PN.HOSP ---
Patient Problems: Active and Suspected Problems COVID-19 (Acute) Thrombocytopenia (Acute) Leukopenia (Acute) Transaminitis (Acute) Hyponatremia (Acute) Subjective: Remains intubated and sedated on the ventilator. Had a bowel movement yesterday. NG still appears coffee-ground but hemoglobin is stable. Patient underwent dialysis yesterday. Vitals/I&O's: Vital Signs Temp Pulse Resp BP Pulse Ox 100.4 F H 97 27 H 94/69 97 11/19/20 12:00 11/19/20 14:35 11/19/20 14:00 11/19/20 14:35 11/19/20 14:00 Oxygen Flow Rate (L/min) 60 Oxygen Delivery Method Mechanical Ventilator Weight: 165.3 kg Body Mass Index (BMI) 42.7 Intake and Output for Last 24 Hours 11/17/20 11/18/20 11/19/20 23:59 23:59 23:59 Intake Total 3053.14 / 3421.14 4528.04 / 4556.34 1962.77 / 1962.77 Output Total 148 / 153 935 / 1335 500 / 500 Balance 2905.14 / 3268.14 3593.04 / 3221.34 1462.77 / 1462.77 General: - - Upper middle-aged white male intubated and sedated on a ventilator HEENT: Atraumatic, PERRLA, Normocephalic, EAC Clear Oral: Moist Mucosa, - - ET-tube in place Neck: Supple, Trachea Midline, Thyroid Normal Size and Texture, - - Right IJ HD catheter clean and dry Lungs: No rhonchi, No wheeze, No rales, Diminished Cardiovascular: Regular Rhythm, Normal S1, Normal S2, No murmurs, No rub noted, No Gallop, Tachycardic - Mild Abdomen: Bowel Sounds Present, Soft, Non Tender, Non-Distended, Hypoactive Bowel Sounds, Obese, No hernias noted Extremities: No clubbing, No cyanosis, Capillary Refill Less than 3 Seconds, Edema - Trace, Peripheral Pulses Normal Skin: No rashes, No breakdown Musculoskeletal: No Muscle Wasting Lymphatic: No Cervical, Supraclavicular, or Inguinal Adenopathy Neurological: - - Patient intubated and sedated Psych/Mental Status: - - Patient intubated and sedated unable to assess, RASS -1 Microbiology Past 72 Hours 04/13/21 10:45 Blood Culture (Wb) - Anticubital Right Blood Culture - Final No growth in 5 days. 11/14/20 10:15 Blood Culture (Wb) - Anticubital Left Blood Culture - Final No growth in 5 days. 11/17/20 11:45 Sputum, Induced/Lukens Gram Stain - Final 11/17/20 11:45 Sputum, Induced/Lukens Respiratory Culture - Preliminary Staphylococcus aureus Streptococcus agalactiae (B) Streptococcus group C 11/18/20 00:40 Gastric Fluid/Contents Gastric Occult Blood - Final Occult Blood Positive Laboratory Results 11/18/20 16:50: POC Glucose 173 H 11/18/20 17:30: Hepatitis A IgM Ab Pending, Hep Bs Antigen Pending, Hep B Core IgM Ab Pending, Hepatitis C Ab (EIA) Pending 11/19/20 00:41: POC Glucose 101 11/19/20 04:52: Specimen Type ART, Sample Site L Radial, pH 7.23 L, Bicarbonate Actual 19.7 L, Total CO2 21, Base Excess -8 L, O2 Saturation 80 L, O2 % 50, ABG pCO2 47.7 H, ABG pO2 53 L, Erick Test Positive, Respiration Rate 12, O2 Delivery Device Adult Vent, Vent Mode BiLevel, POC PEEP 26 11/19/20 04:55: WBC 15.2 H, RBC 3.92 L, Hgb 13.0, Hct 39.6 L, MCV 101.0 H, MCH 33.2 H, MCHC 32.8, RDW Std Deviation 52.6 H, RDW Coeff of Keyonna 14.0, Plt Count 179, MPV 11.4, Immature Gran % (Auto) 3.000 H, Neut % (Auto) 83.3 H, Lymph % (Auto) 6.3 L, [place] % (Auto) 6.1, Eos % (Auto) 0.8, Baso % (Auto) 0.5, Absolute Neuts (auto) 12.6 H, Absolute Lymphs (auto) 0.96, Nucleated RBC % 0, Differential Comment SCANNED 11/19/20 04:55: Sodium 132 L, Potassium 4.8, Chloride 97 L, Carbon Dioxide 21.0, Anion Gap 14, BUN 65 H, Creatinine 6.23 H, Estim Creat Clear Calc 14.13, Est GFR (MDRD) Af Amer 12 L, Est GFR (MDRD) Non-Af 10 L, BUN/Creatinine Ratio 10.4, Glucose 133 H, Calcium 7.1 L, Total Bilirubin 1.60 H, AST 46 H, ALT 45, Alkaline Phosphatase 73, Total Protein 6.2 L, Albumin 2.1 L, Globulin 4.1, Albumin/Globulin Ratio 0.5 L 11/19/20 10:54: POC Glucose 158 H Current Medications Acetaminophen (Acetaminophen 650 Mg/20 Ml Udc) 650 mg NG Q6H PRN PRN PRN Reason: Pain Score 1-10/Temp > 100.7 F Last Admin: 11/18/20 10:42 Dose: 650 mg Documented by: Al Hydroxide/Mg Hydroxide (Mag Hydrox/Al Hydrox/Simeth 30 Ml Udc) 30 ml GT Q6H PRN PRN PRN Reason: Gastric Burning Albuterol/Ipratropium (Ipratropium/Albuterol Sulfate 3 Ml Ampul.Neb) 3 ml INHALATION Q6HWA.RT [facility] Last Admin: 11/19/20 13:21 Dose: 3 ml Documented by: Atorvastatin Calcium (Atorvastatin Calcium 20 Mg Tablet) 20 mg GT 1700 [facility] Last Admin: 11/18/20 16:55 Dose: 20 mg Documented by: Chlorhexidine Gluconate (Chlorhexidine 15 Ml) 15 ml PO BID [facility] Last Admin: 11/19/20 10:56 Dose: 15 ml Documented by: Dexamethasone (Dexamethasone 4 Mg Tablet) 6 mg GT DAILY [facility] Stop: 11/23/20 10:01 Last Admin: 11/19/20 10:56 Dose: 6 mg Documented by: Dextrose (Dextrose 50%-Water 25 Gm/50 Ml Disp.Syrin) 0 gm IV X1 PRN; Protocol PRN Reason: Hypoglycemia Glucagon (Glucagon 1 Mg/Ml Syringe) 1 mg IM .X1 PRN PRN Reason: Hypoglycemia Guaifenesin (Guaifenesin 10 Ml Udc (200mg/10ml)) 10 ml GT Q6 [facility] Last Admin: 11/19/20 10:57 Dose: 10 ml Documented by: Propofol (Diprivan) 1,000 mg in 100 mls @ 9.918 mls/hr CONT INF .Q10H5M [facility]; Protocol Last Admin: 11/19/20 11:00 Dose: Not Given Documented by: Fentanyl Citrate 1,000 mcg/ (Sodium Chloride) 100 mls @ 5 mls/hr CONT INF .Q20H [facility]; Protocol Last Titration: 11/19/20 14:00 Dose: 175 mcg/hr, 17.5 mls/hr Documented by: Dexmedetomidine HCl 1,000 mcg/ (Sodium Chloride) 250 mls @ 20.663 mls/hr CONT INF .Q12H6M [facility]; Protocol Last Titration: 11/19/20 14:00 Dose: 1 mcg/kg/hr, 41.3 mls/hr Documented by: Pantoprazole Sodium 40 mg/ (Sodium Chloride) 110 mls @ 330 mls/hr IV Q12 [facility] Insulin Glargine (Insulin Glargine 100 Units/Ml Pen) 40 units SC BID@0000,1200 [facility] Last Admin: 11/19/20 11:19 Dose: Not Given Documented by: Insulin Human Lispro (Insulin Lispro 100 Unit/Ml Insuln.Pen) 0 unit SC Q6H [facility]; Protocol Last Admin: 11/19/20 10:57 Dose: 3 u Documented by: Lorazepam (Lorazepam 2 Mg/Ml Syringe) 2 mg IV Q2H PRN PRN PRN Reason: AGITATION Last Admin: 11/18/20 21:23 Dose: 2 mg Documented by: Ondansetron HCl (Ondansetron 4 Mg/2 Ml Vial) 4 mg IV Q8H PRN PRN PRN Reason: NAUSEA/VOMITING Polyethylene Glycol (Polyethylene Glycol 3350 17 Gm Packet) 17 gm GT DAILY [facility] Last Admin: 11/19/20 10:56 Dose: 17 gm Documented by: Senna/Docusate Sodium (Senna/Docusate Sodium 1 Tablet) 2 tablet GT BID [facility] Last Admin: 11/19/20 10:56 Dose: 2 tablet Documented by: Sodium Chloride (0.9% Saline Lock 10 Ml Syringe) 10 - 40 ml IV UD PRN PRN Reason: SALINE FLUSH Last Admin: 11/19/20 06:43 Dose: 10 ml Documented by: STROKE Vital Signs/Narrative: Vital Signs Temp Pulse Resp BP BP Pulse Ox 11/19/20 14:35 97 94/69 11/19/20 14:00 109 H 27 H 80/39 L 97 11/19/20 13:30 111 H 93/47 L 11/19/20 13:26 99 26 H 11/19/20 13:17 100 30 H 93 11/19/20 13:00 101 H 22 H 84/46 L 93 11/19/20 12:00 100.4 F H 99 22 H 104/49 L 91 11/19/20 11:25 87 11/19/20 11:12 95 25 H 90 Medical Necessity - Tobacco Use Smoking Status: Former smoker Assessment/Plan All Active Problems COVID-19 (Acute) Thrombocytopenia (Acute) Leukopenia (Acute) Transaminitis (Acute) Hyponatremia (Acute) Acute hypoxic respiratory failure secondary to COVID-19 pneumonia/polymicrobial pneumonia (MSSA, strep agalactiae, strep group C) -Pt CXR with patchy B infiltrates -Patient has decompensated further to the point of requiring endotracheal intubation which was performed this morning -Currently on bilevel ventilation with an FiO2 of 77%--> SPO2 at this time is 93-97% -And oxygen as able -Start ceftriaxone 2 g daily -remdesivir completed -Decadron 6 mg daily--> day 01/11 -ABG reviewed--> patient remains with a metabolic acidosis likely related to renal failure -Blood cultures negative -Pulmonary following Transaminitis -Almost resolved -ALT is normalized and only mild AST elevation WOO secondary to ATN and Covid -We will place dialysis catheter today -Fena was 0.86%--> fluids were trialed but suspect this is more related to cardiac output and perfusion then dehydration -Retroperitoneal within normal limits -Continue dialysis per nephrology -Continue to keep MAP greater than 65 -Avoid nephrotoxins Upper GI bleed -Gastric occult blood positive -Hemoglobin remained stable -Tube feeds on hold--> likely restart tomorrow -Aspirin on hold -Xarelto has been on hold -Protonix drip--> the plan is to switch to Protonix IV push twice daily Intermittent hypotension -Monitor for pressor needs -PICC line is in place Non-anion gap metabolic acidosis -Most likely cause is renal failure -Continue to monitor -Currently stable -Dialysis per nephrology Mild hyperkalemia -Suspect related to kidney injury and acidosis with extracellular shifts -Resolved Leukopenia/thrombocytopenia -Resolved Hyponatremia -Likely related to Covid -Improved with dialysis yesterday 132 today -Continue to monitor -May drop further with new kidney injury DM-2 -Patient is on Trulicity, Metformin, and glimepiride at home -Hold all home medications at this time -Glycemic control is much improved -Continue Lantus 40 units twice daily -Continue sliding scale -Goal blood sugars are 140-180 -continue every 6 hour blood sugars Hypertension -Hold antihypertensives -Blood pressure has normalized and is on the lower side at times Hyperlipidemia -Continue statin History of coronary disease -Hold aspirin due to GI bleed -Start aspirin when able YASMIN -Patient intubated History of pulmonary embolism -Hold Xarelto with upper GI bleed Morbid obesity -BMI 42.6 -Complicates overall treatment, outcomes and prognosis History of tobacco abuse -Quit approximately 20 years ago -Suspect possible baseline COPD and will need outpatient PFTs after his acute infection has resolved DVT/GI prophylaxis -SCDs--> consider reinitiation of NOAC versus prophylactic dose Lovenox depending on hemoglobin -Protonix 40 mg daily CODE STATUS -DNR CCA ok for ETT Inpatient E&M: [id number] [facility] Hosp L3
[2020-11-19] MEDS: Acetaminophen 650 MG/20 ML UDC NG (16:18)
--- NOTE | 2020-11-19 16:54 | RAD_ITS ---
STUDY: X-RAY CHEST REASON FOR EXAM: Male, 65 years old. SOB TECHNIQUE: AP COMPARISON: 11/18/2020 FINDINGS: Right arm PICC, right jugular central venous catheter, endotracheal tube and enteric tube are stable. EKG leads project over the chest. Multilobar pulmonary infiltrates are very similar since prior study except for mildly increasing consolidation of the right midlung zone. There is no demonstrated pleural abnormality. Normal size heart. Normal mediastinum and luli. Normal visualized pulmonary arteries. Normal visualized aortic arch and descending thoracic aorta. No acute bony process. There is no demonstrated abnormality of the visualized soft tissue structures of the upper abdomen. RAD/Chest 1 View (Portable) IMPRESSION: 1. Stable support lines and tubes. 2. Mild worsening (right middle lung zone) of multilobar pulmonary infiltrates suggesting pneumonia, including viral causes. Electronically Signed: Alonzo Lawton MD ([place]) at 17:09 EDT , Service support ,
[2020-11-19 17:01] LABS: Allen Test Positive; Base Excess -15 mmol/L (-2 to +2); Bicarbonate 18.1 mmol/L (22-26); Blood Gas Specimen Type ART; FI02 100; Mode BiLevel; O2 Delivery Device ET Tube; PO2 54 mmHG (75-100); RR 12; SITE R Radial; SO2 63 % (95-99); Total Carbon Dioxide 21 mmol/L; pCO2 88.9 mmHg (35-45); pH 6.92 (7.35-7.45)
[2020-11-19 17:15] LABS: International Normalized Ratio 1.7; Partial Thromboplast Time 34.3 Seconds (24.1-36.2); Prothrombin Time (Protime)PT. 18.9 SECONDS (11.7-14.9)
[2020-11-19] MEDS: HEPARIN/D5w 25,000 UNITS 25,000 UNITS/250 ML IV.SOLN. 20 UNITS IV (17:18)
--- NOTE | 2020-11-19 17:26 | CPS ---
Critical blood gas values seen, Dr. Padgett aware.
[2020-11-19] MEDS: Atorvastatin Calcium 20 MG Tablet GT (18:14)
--- NOTE | 2020-11-19 18:30 | EKG12_ITS ---
Test Reason : RHY CHANGE Blood Pressure : / mmHG Vent. Rate : 135 BPM Atrial Rate : 108 BPM P-R Int : 000 ms QRS Dur : 108 ms QT Int : 322 ms P-R-T Axes : 000 -19 080 degrees QTc Int : 483 ms Atrial Fibrillation Inferior infarct , age undetermined Abnormal ECG Confirmed by JACKY LOPEZ, SHARON ([id number]), electronic news gathering editor COSME GIBSON ([id number]) on 11/22/2020 1:22:59 PM Referred By: KAMALA Confirmed By:SHARON RICO MD
[2020-11-19 18:51] LABS: Allen Test Positive; Base Excess -17 mmol/L (-2 to +2); Bicarbonate 16.2 mmol/L (22-26); Blood Gas Specimen Type ART; FI02 100; Mode AC; O2 Delivery Device ET Tube; PEEP 16; PO2 65 mmHG (75-100); RR 16; SITE R Radial; SO2 70 % (95-99); Total Carbon Dioxide 19 mmol/L; Vt 500; pCO2 90.6 mmHg (35-45); pH 6.86 (7.35-7.45)
[2020-11-19] MEDS: Sodium Bicarbonate 8.4% 50 ML Syringe 100 MEQ IV (19:11)
--- NOTE | 2020-11-19 20:35 | NURSING ---
Pt condition has deteriorated and family has been called to come in. , and immediate family at bedside. Condition has been explained to family and the possibility of of pt. Family remains hopeful, but is realistic with possible outcome.
[2020-11-19 21:20] LABS: Base Excess -16 mmol/L (-2 to +2); Bicarbonate 16.1 mmol/L (22-26); Blood Gas Specimen Type ART; FI02 100; Mode AC; O2 Delivery Device Adult Vent; PEEP 18; PO2 60 mmHG (75-100); RR 18; SITE R Brach; SO2 73 % (95-99); Total Carbon Dioxide 18 mmol/L; Vt 500; pCO2 68.9 mmHg (35-45); pH 6.98 (7.35-7.45)
--- NOTE | 2020-11-19 21:20 | CPS ---
critical abg results called to dr schofield by RN at 11/19/20 at [id number]
[2020-11-19 21:45] LABS: Bedside Glucose 139 mg/dL (70-110)
[2020-11-19] MEDS: Atropine Sulfate 1% 2 ml Bottle 4 DRP PO (21:50)
--- NOTE | 2020-11-19 23:43 | NURSING ---
Family at bedside during extubation. Pt 22:07. Family remained at bedside during process. Bereavement kit with hearts and final heartbeat strips to family. 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 [place] [facility] [place] Belongings with pt.
--- NOTE | 2020-11-20 08:55 | EXP.PCM_ITS ---
Preliminary Cause of Acute Hypoxic Respiratory Failure 2/2 Acute Covid PNA/ARDS Date of Admission: 11/14/20 Date of : 11/20/20 - Principle Diagnosis Problem List: Active and Suspected Problems COVID-19 (Acute) Thrombocytopenia (Acute) Leukopenia (Acute) Transaminitis (Acute) Hyponatremia (Acute) Hospital Course Mr. Alcocer was a 65 year old WM with a past medical history of coronary artery disease, HTN, HPL, YASMIN, MO, and DM-2 who presented to emergency department [facility] on 11/14/2020 with a chief complaint of shortness of breath. He reported that he had been feeling ill since the Friday prior to admission with generalized fatigue, lightheadedness, diarrhea, fevers, cough, and shortness of breath. He had a history of pulmonary embolism for which she was on Xarelto. He was compliant with this medication consistently and did not miss doses. He had not yet been vaccinated for COVID-19. Vital signs in the emergency department show a temperature of 100.5, heart rate of 80, blood pres sure 144/64, respiratory rate of 20, and an oxygen saturation of 90% on room air. A COVID-19 rapid antigen test was performed and was positive. His CBC showed leukopenia and thrombocytopenia. His CMP showed mild hyponatremia with a sodium of 128, a glucose of 312, mildly elevated transaminases with an AST of 83 and an ALT of 94. His chest x-ray showed cardiomegaly with mild congestion and extensive multifocal airspace opacities. He was treated with Decadron in the emergency department and he was admitted to the COVID-19 cohort unit for further care. Given his comorbidities he was informed that he was at and incredibly high risk for decompensation and this was discussed with both he and his . He declared his code status to be DNR ok for intubation at the time of admission. He was initially treated with Decadron and Remdesivir, He unfortunately had rapidly worsening respiratory failure despite maximal therapy and required intubation and the initiation of mechanical ventilation on 11/15/2020. He did better with oxygenation initially but then deteriorated and pulmonology had to switch him to Bilevel ventilation to enable him to oxygenate better. His saturations improved initially and his FiO2 was able to be weaned down to as low as 50% but unfortunately, he worsened again and and the FiO2 had to be increased again. Early on the he started putting coffee grounds out of his NGT and his TF was held, gastric occult was obtained and his Xarelto and ASA were held. His hgb remained stable and he did not require transfusion. He also developed progressively worsening renal failure that required the initation of iHD which was initiated on 11/18/2020 after a R IJ HD catheter was placed. His sputum cx was positive for MSSA/Group A and C Strep and he was placed on ceftriaxone. He develeped a progressively worsening acidosis on the and after a discussion with the family his code status was changed to DNR MANAGER SUSTAINABILITY. His family was called in and Mr. Alcocer on 11/19/2020 @ 2207 after terminal extubation. ]
[2020-11-21 14:08] LABS: HEPATITIS B SURFACE AG Negative (Negative); Hepatitis A IgM Antibody Negative (Negative); Hepatitis B Core AB IgM Negative (Negative)
[2020-11-21 15:54] LABS: Hep C Antibodies <0.1 s/co ratio (0.0-0.9)
== END 2020-11-19 23:00 | DRG 208 ==
LOC: ED 12:11 → ICU 12:31
PROVIDERS: Hospitalist; Internal Medicine; Internal Medicine Critical Care Medicine; Admitting Provider Internal Medicine; Emergency Provider Emergency Medicine; PCP Nurse Practitioner Family; Visit Provider Internal Medicine
DX: U07.1 COVID-19 (principal); J12.82 Pneumonia due to coronavirus disease 2019; N17.0 Acute kidney failure with tubular necrosis; J80 Acute respiratory distress syndrome; E87.1 Hypo-osmolality and hyponatremia; Z68.41 Body mass index [BMI] 40.0-44.9, adult; E87.2 Acidosis; J44.0 Chronic obstructive pulmonary disease with (acute) lower respiratory infection; B95.61 Methicillin susceptible Staphylococcus aureus infection as the cause of diseases classified elsewhere; B95.1 Streptococcus, group B, as the cause of diseases classified elsewhere; B95.4 Other streptococcus as the cause of diseases classified elsewhere; I25.10 Atherosclerotic heart disease of native coronary artery without angina pectoris; I11.9 Hypertensive heart disease without heart failure; G47.33 Obstructive sleep apnea (adult) (pediatric); E11.65 Type 2 diabetes mellitus with hyperglycemia; E11.59 Type 2 diabetes mellitus with other circulatory complications; E78.2 Mixed hyperlipidemia; D72.818 Other decreased white blood cell count; D69.59 Other secondary thrombocytopenia; E87.5 Hyperkalemia; I95.89 Other hypotension; E66.01 Morbid (severe) obesity due to excess calories; R74.01 Elevation of levels of liver transaminase levels; R19.5 Other fecal abnormalities; Z66 Do not resuscitate; Z79.01 Long term (current) use of anticoagulants; Z79.82 Long term (current) use of aspirin; Z79.4 Long term (current) use of insulin; Z79.899 Other long term (current) drug therapy; Z86.711 Personal history of pulmonary embolism; Z87.891 Personal history of nicotine dependence; Z91.19 Patient's noncompliance with other medical treatment and regimen
CPT/HCPCS: 31500; 31720; 36569; 36600; 71045; 76770; 80053; 80074; 81001; 82271; 82550; 82570; 82803; 82962; 83605; 83735; 84100; 84300; 84478; 84484; 85014; 85018; 85025; 85610; 85730; 87040; 87070; 87077; 87186; 87205; 87426; 90937; 93005; 94002; 94003; 94640; 94668; 97802; 97803; 99251; 99285; J7030; J7050; J7120; A4216; C1752; G0257; G0463; J0696; J3010; J3490